=== PATIENT | male | born 1950 | race Caucasian/White ===

== ENCOUNTER 2020-09-12 10:14 | Outpatient (REF) | payer MEDICARE, OTHER, SELFPAY ==
[2020-09-12 13:47] LABS: MANUAL DIFF FLAG NO
[2020-09-12 13:58] LABS: Basophils Percent Auto 0.5 % (0-2); Eosinophils Absolute Auto 0.4 X10*3/uL (0.0-0.4); Eosinophils Percent Auto 4.7 % (0-4); Hematocrit 48.4 % (42-52); Hemoglobin 16.1 g/dl (14.0-18.0); Imm Gran Abs Auto 0.01 X10*3/uL (0.00-0.03); Imm Gran Pct Auto 0.1 % (0.0-0.4); Lymphocytes Percent Auto 26.2 % (20-40); Mean Corpuscular HGB Conc 33.3 g/dl (31.0-36.0); Mean Corpuscular Hemoglobin 29.7 pg (27.0-33.0); Mean Corpuscular Volume 89.1 fL (80-98); Monocytes Absolute Auto 0.6 X10*3/uL (0.1-1.2); Monocytes Percent Auto 8.2 % (2-11); Neutrophils Absolute Auto 4.5 X10*3/uL (2.0-8.3); Neutrophils Percent Auto 60.3 % (45-73); Platelet Count 152 X10*3/uL (160-400); Red Blood Count 5.43 X10*6/uL (4.60-5.80); Red Cell Distribution Width 13.4 % (11.0-16.0); White Blood Count 7.5 X10*3/uL (4.8-10.8)
[2020-09-12 14:00] LABS: Estimated Average Glucose 151 mg/dL; Hemoglobin A1c % 6.9 %
[2020-09-12 14:17] LABS: Alanine Aminotransferase 32 U/L (0-40); Albumin Level 4.3 g/dL (3.5-5.0); Alkaline Phosphatase 81 U/L (39-117); Anion Gap 13 (12-20); Aspartate Amino Transferase 28 U/L (5-37); Blood Urea Nitrogen 17 mg/dL (9-16); Calcium 9.4 mg/dL (8.4-10.2); Carbon Dioxide 27 mmol/L (22-29); Chloride 106 mmol/L (96-108); Cholesterol 110 mg/dL; Estimated Glomerular Filt Rate > 60; Glucose Fasting 129 mg/dL (60-99); HDL Cholesterol 34 mg/dL; LDL Cholesterol Calculated 59 mg/dl; Potassium 3.8 mmol/l (3.3-5.1); Sodium 142 mmol/L (135-145); Total Protein 6.9 g/dL (6.5-8.0); Triglycerides 89 mg/dL
== END 2020-09-12 10:15 | disposition home or self-care (01) ==
LOC: HO.10HDL 10:14
PROVIDERS: Visit Provider Internal Medicine Medical Oncology
DX: J44.9 Chronic obstructive pulmonary disease, unspecified (principal); E78.2 Mixed hyperlipidemia; I10 Essential (primary) hypertension
CPT/HCPCS: 36415; 80053; 80061; 83036; 85025

== ENCOUNTER → 2020-12-09 13:16 | Outpatient (BNVA) | payer MEDICARE, OTHER, SELFPAY | PROVIDERS: PCP Internal Medicine Medical Oncology; Visit Provider Internal Medicine Endocrinology, Diabetes & Metabolism | DX: E11.42 Type 2 diabetes mellitus with diabetic polyneuropathy (principal); Z79.4 Long term (current) use of insulin; E78.5 Hyperlipidemia, unspecified; I10 Essential (primary) hypertension; E66.9 Obesity, unspecified | CPT/HCPCS: 82947; 99212 ==

== ENCOUNTER → 2021-03-13 12:28 | Outpatient (BNVA) | payer MEDICARE, OTHER, SELFPAY | PROVIDERS: PCP Internal Medicine Medical Oncology; Visit Provider Internal Medicine Endocrinology, Diabetes & Metabolism | DX: E11.65 Type 2 diabetes mellitus with hyperglycemia (principal); E11.42 Type 2 diabetes mellitus with diabetic polyneuropathy; Z79.4 Long term (current) use of insulin; E78.5 Hyperlipidemia, unspecified; I10 Essential (primary) hypertension; E66.9 Obesity, unspecified | CPT/HCPCS: 82947; 99212 ==

== ENCOUNTER → 2021-03-18 10:48 | Outpatient (BNVA) | payer MEDICARE, OTHER, SELFPAY | PROVIDERS: PCP Internal Medicine Medical Oncology; Visit Provider Internal Medicine | DX: I25.10 Atherosclerotic heart disease of native coronary artery without angina pectoris (principal); I10 Essential (primary) hypertension; E11.8 Type 2 diabetes mellitus with unspecified complications; E78.5 Hyperlipidemia, unspecified | CPT/HCPCS: 93005; 99212 ==

== ENCOUNTER 2021-03-18 11:41 | Outpatient (REF) | payer MEDICARE, OTHER, SELFPAY ==
[2021-03-18 14:07] LABS: MANUAL DIFF FLAG NO
[2021-03-18 14:15] LABS: Basophils Percent Auto 0.5 % (0-2); Eosinophils Absolute Auto 0.4 X10*3/uL (0.0-0.4); Eosinophils Percent Auto 4.3 % (0-4); Hematocrit 50.2 % (42-52); Hemoglobin 16.7 g/dl (14.0-18.0); Imm Gran Abs Auto 0.03 X10*3/uL (0.00-0.03); Imm Gran Pct Auto 0.4 % (0.0-0.4); Lymphocytes Absolute Auto 2.1 X10*3/uL (1.2-4.9); Lymphocytes Percent Auto 26.4 % (20-40); Mean Corpuscular HGB Conc 33.3 g/dl (31.0-36.0); Mean Corpuscular Hemoglobin 29.9 pg (27.0-33.0); Monocytes Absolute Auto 0.6 X10*3/uL (0.1-1.2); Monocytes Percent Auto 6.8 % (2-11); Neutrophils Percent Auto 61.6 % (45-73); Platelet Count 203 X10*3/uL (160-400); Red Blood Count 5.58 X10*6/uL (4.60-5.80); Red Cell Distribution Width 13.6 % (11.0-16.0); White Blood Count 8.1 X10*3/uL (4.8-10.8)
[2021-03-18 14:41] LABS: Alanine Aminotransferase 29 U/L (0-40); Albumin Level 4.7 g/dL (3.5-5.0); Alkaline Phosphatase 92 U/L (39-117); Anion Gap 16 (12-20); Aspartate Amino Transferase 26 U/L (5-37); Bilirubin Total 1.1 mg/dL (0.0-1.0); Blood Urea Nitrogen 22 mg/dL (9-16); Calcium 10.1 mg/dL (8.4-10.2); Carbon Dioxide 26 mmol/L (22-29); Chloride 104 mmol/L (96-108); Cholesterol 125 mg/dL; Creatinine Urine 94.48 mg/dL; Estimated Glomerular Filt Rate > 60; Glucose Fasting 132 mg/dL (60-99); HDL Cholesterol 34 mg/dL; LDL Cholesterol Calculated 73 mg/dl; Microalbum/Creatinine Ratio Ur 7.4 ug/mg cr; Potassium 4.2 mmol/L (3.3-5.1); Sodium 142 mmol/L (135-145); Total Protein 7.5 g/dL (6.5-8.0); Triglycerides 90 mg/dL
[2021-03-18 15:12] LABS: Vitamin B12 644 pg/mL (200-900)
[2021-03-19 06:26] LABS: LDL Cholesterol Direct 66 mg/dL (<100)
== END 2021-03-18 11:42 | disposition home or self-care (01) ==
LOC: HO.10HDL 11:41
PROVIDERS: Absent Provider Internal Medicine Medical Oncology; Visit Provider Internal Medicine Endocrinology, Diabetes & Metabolism
DX: E11.65 Type 2 diabetes mellitus with hyperglycemia (principal); E78.2 Mixed hyperlipidemia; I10 Essential (primary) hypertension; E11.8 Type 2 diabetes mellitus with unspecified complications
CPT/HCPCS: 36415; 80053; 80061; 82043; 82607; 83721; 85025

== ENCOUNTER 2021-09-03 10:09 | Outpatient (REF) | payer MEDICARE, OTHER, SELFPAY ==
[2021-09-03 13:33] LABS: MANUAL DIFF FLAG NO
[2021-09-03 13:40] LABS: Basophils Percent Auto 0.6 % (0-2); Eosinophils Absolute Auto 0.5 X10*3/uL (0.0-0.4); Eosinophils Percent Auto 6.7 % (0-4); Hematocrit 47.6 % (42-52); Hemoglobin 16.1 g/dl (14.0-18.0); Imm Gran Abs Auto 0.02 X10*3/uL (0.00-0.03); Imm Gran Pct Auto 0.3 % (0.0-0.4); Lymphocytes Absolute Auto 2.2 X10*3/uL (1.2-4.9); Lymphocytes Percent Auto 30.2 % (20-40); Mean Corpuscular HGB Conc 33.8 g/dl (31.0-36.0); Mean Corpuscular Hemoglobin 30.3 pg (27.0-33.0); Mean Corpuscular Volume 89.5 fL (80-98); Mean Platelet Volume 10.1 fL (9.4-12.4); Monocytes Absolute Auto 0.5 X10*3/uL (0.1-1.2); Monocytes Percent Auto 7.5 % (2-11); Neutrophils Absolute Auto 3.9 X10*3/uL (2.0-8.3); Neutrophils Percent Auto 54.7 % (45-73); Platelet Count 147 X10*3/uL (160-400); Red Blood Count 5.32 X10*6/uL (4.60-5.80); Red Cell Distribution Width 13.2 % (11.0-16.0); White Blood Count 7.2 X10*3/uL (4.8-10.8)
[2021-09-03 13:56] LABS: Alanine Aminotransferase 32 U/L (0-40); Albumin Level 4.3 g/dL (3.5-5.0); Alkaline Phosphatase 85 U/L (39-117); Anion Gap 13 (12-20); Aspartate Amino Transferase 28 U/L (5-37); Bilirubin Total 1.4 mg/dL (0.0-1.0); Blood Urea Nitrogen 14 mg/dL (9-16); Calcium 9.6 mg/dL (8.4-10.2); Carbon Dioxide 27 mmol/L (22-29); Chloride 104 mmol/L (96-108); Cholesterol 108 mg/dL; Estimated Glomerular Filt Rate > 60; Glucose Fasting 127 mg/dL (60-99); HDL Cholesterol 31 mg/dL; LDL Cholesterol Calculated 59 mg/dl; Potassium 3.8 mmol/L (3.3-5.1); Sodium 140 mmol/L (135-145); Total Protein 6.9 g/dL (6.5-8.0); Triglycerides 92 mg/dL
[2021-09-03 14:19] LABS: Prostate Specific Antigen 2.38 ng/mL (<0.05-4.0)
[2021-09-03 14:24] LABS: Creatinine Urine 102.42 mg/dL; Microalbum/Creatinine Ratio Ur 7.8 ug/mg cr
== END 2021-09-03 10:10 | disposition home or self-care (01) ==
LOC: HO.10HDL 10:09
PROVIDERS: Visit Provider Internal Medicine Medical Oncology
DX: Z12.5 Encounter for screening for malignant neoplasm of prostate (principal); N40.0 Benign prostatic hyperplasia without lower urinary tract symptoms; E78.2 Mixed hyperlipidemia; E66.3 Overweight
CPT/HCPCS: 36415; 80053; 80061; 82043; 84153; 85025

== ENCOUNTER → 2021-09-24 09:47 | Outpatient (BNVA) | payer MEDICARE, OTHER, SELFPAY | PROVIDERS: PCP Internal Medicine Medical Oncology; Visit Provider Nurse Practitioner Gerontology | DX: Z13.89 Encounter for screening for other disorder (principal) | CPT/HCPCS: 82947; 83036; 99212 ==

== ENCOUNTER 2021-09-24 11:00 | Outpatient (REF) | payer MEDICARE, OTHER, SELFPAY ==
[2021-09-24 14:33] LABS: Thyroid Stimulating Hormone 3.72 uIU/mL (0.32-4.0)
[2021-09-25 10:47] LABS: Thyroid Peroxidase Antibodies 1 IU/mL (<9)
== END 2021-09-24 11:01 | disposition home or self-care (01) ==
LOC: HO.10HDL 11:00
PROVIDERS: Visit Provider Nurse Practitioner Gerontology
DX: E11.65 Type 2 diabetes mellitus with hyperglycemia (principal); E11.42 Type 2 diabetes mellitus with diabetic polyneuropathy; Z79.4 Long term (current) use of insulin; E04.9 Nontoxic goiter, unspecified; I10 Essential (primary) hypertension; E78.5 Hyperlipidemia, unspecified
CPT/HCPCS: 36415; 82947; 83036; 84439; 84443; 86376; 99212

== ENCOUNTER 2021-11-11 16:03 | Outpatient (REF) | payer MEDICARE, OTHER, SELFPAY ==
--- NOTE | ~2021-11-11 | US_ITS ---
EXAMINATION: US THYROID CLINICAL INFORMATION: Nontoxic goiter, unspecified. COMPARISON: None TECHNIQUE: Linear transducer grayscale and color Doppler examination with attention to the region of the thyroid. FINDINGS: SIZE: Measurements of the thyroid lobes and nodules are given in sagittal, anteroposterior and transverse dimensions respectively. Right Thyroid Lobe: 4.3 x 1.2 x 1.9 cm, volume 5.1 mL. Parenchyma: The gland echotexture is homogeneous. Thyroid vascularity is normal. Left Thyroid Lobe: 4.7 x 1.2 x 1.4 cm, volume 4.2 mL. Parenchyma: The gland echotexture is homogeneous. Thyroid vascularity is normal. Isthmus: 0.2 cm in maximum AP dimension. No focal thyroid nodule is seen. NODES: No lymphadenopathy is seen in the tissue surrounding the thyroid gland. US/US thyroid IMPRESSION: Unremarkable thyroid gland. ACR TI-RADS RECOMMENDATION REFERENCE: Ultrasound-guided fine-needle aspiration, followup ultrasound, no further follow up. * TR1 (0 point) and TR 2 (2 points): No FNA or follow up * TR3 (3 points): FNA if more than or equal to 2.5 cm in maximum dimension, followup ultrasound in 1, 3 and 5 years if 1.5 to 2.4 cm in maximum dimension. * TR4 (4-6 points): FNA if more than or equal to 1.5 cm in maximum dimension, followup ultrasound in 1, 2, 3 and 5 years if 1 to 1.4 cm in maximum dimension. * TR5 (more than or equal to 7 points): FNA if more than or equal to 1 cm in maximum dimension, followup ultrasound every year for 5 years if 0.5 to 0.9 cm in maximum dimension. * TR3, TR4 or TR5 nodules that are below the size threshold for follow up receive no follow up.
== END 2021-11-11 16:04 | disposition home or self-care (01) ==
LOC: HO.US 16:03
PROVIDERS: PCP Internal Medicine Medical Oncology; Visit Provider Nurse Practitioner Gerontology
DX: E04.9 Nontoxic goiter, unspecified (principal)
CPT/HCPCS: 76536

== ENCOUNTER 2021-12-09 09:41 | Outpatient (REF) | payer MEDICARE, OTHER, SELFPAY ==
[2021-12-09 10:08] LABS: MANUAL DIFF FLAG NO
[2021-12-09 10:13] LABS: Basophils Percent Auto 0.5 % (0-2); Eosinophils Absolute Auto 0.3 X10*3/uL (0.0-0.4); Eosinophils Percent Auto 3.3 % (0-4); Hematocrit 49.3 % (42.0-52.0); Hemoglobin 16.4 g/dl (14.0-18.0); Imm Gran Abs Auto 0.03 X10*3/uL (0.00-0.03); Imm Gran Pct Auto 0.4 % (0.0-0.4); Mean Corpuscular HGB Conc 33.3 g/dl (31.0-36.0); Mean Corpuscular Hemoglobin 30.3 pg (27.0-33.0); Mean Corpuscular Volume 91.1 fL (80.0-98.0); Monocytes Absolute Auto 0.6 X10*3/uL (0.1-1.2); Monocytes Percent Auto 7.4 % (2-11); Neutrophils Percent Auto 63.4 % (45-73); Platelet Count 180 X10*3/uL (160-400); Red Blood Count 5.41 X10*6/uL (4.60-5.80); Red Cell Distribution Width 13.3 % (11.0-16.0); White Blood Count 7.9 X10*3/uL (4.8-10.8)
[2021-12-09 10:38] LABS: Alanine Aminotransferase 33 U/L (0-40); Albumin Level 4.3 g/dL (3.5-5.0); Alkaline Phosphatase 73 U/L (39-117); Anion Gap 12 (12-20); Aspartate Amino Transferase 24 U/L (5-37); Bilirubin Total 1.2 mg/dL (0.0-1.0); Blood Urea Nitrogen 17 mg/dL (9-16); Carbon Dioxide 28 mmol/L (22-29); Chloride 106 mmol/L (96-108); Cholesterol 112 mg/dL; Estimated Glomerular Filt Rate > 60; Glucose Fasting 138 mg/dL (60-99); HDL Cholesterol 31 mg/dL; LDL Cholesterol Calculated 58 mg/dl; Potassium 4.5 mmol/L (3.3-5.1); Sodium 141 mmol/L (135-145); Triglycerides 117 mg/dL
[2021-12-09 14:12] LABS: Creatinine Urine 105.58 mg/dL; Microalbum/Creatinine Ratio Ur 8.5 ug/mg cr
== END 2021-12-09 09:42 | disposition home or self-care (01) ==
LOC: HO.10HDL 09:41
PROVIDERS: Visit Provider Internal Medicine Medical Oncology
DX: N40.0 Benign prostatic hyperplasia without lower urinary tract symptoms (principal); E78.2 Mixed hyperlipidemia
CPT/HCPCS: 36415; 80053; 80061; 82043; 85025

== ENCOUNTER 2022-02-19 10:32 | Outpatient (REF) | payer MEDICARE, OTHER, SELFPAY ==
[2022-02-19 11:16] LABS: MANUAL DIFF FLAG NO
[2022-02-19 12:13] LABS: Basophils Percent Auto 0.5 % (0-2); Eosinophils Absolute Auto 0.4 X10*3/uL (0.0-0.4); Eosinophils Percent Auto 5.4 % (0-4); Hematocrit 47.8 % (42.0-52.0); Hemoglobin 16.6 g/dl (14.0-18.0); Imm Gran Abs Auto 0.02 X10*3/uL (0.00-0.03); Imm Gran Pct Auto 0.3 % (0.0-0.4); Lymphocytes Absolute Auto 1.8 X10*3/uL (1.2-4.9); Lymphocytes Percent Auto 24.8 % (20-40); Mean Corpuscular HGB Conc 34.7 g/dl (31.0-36.0); Mean Corpuscular Hemoglobin 31.9 pg (27.0-33.0); Mean Corpuscular Volume 91.7 fL (80.0-98.0); Mean Platelet Volume 9.9 fL (9.4-12.4); Monocytes Absolute Auto 0.5 X10*3/uL (0.1-1.2); Monocytes Percent Auto 7.1 % (2-11); Neutrophils Absolute Auto 4.6 x10*3/uL (2.0-8.3); Neutrophils Percent Auto 61.9 % (45-73); Platelet Count 142 X10*3/uL (160-400); Red Blood Count 5.21 X10*6/uL (4.60-5.80); Red Cell Distribution Width 14.2 % (11.0-16.0); White Blood Count 7.4 X10*3/uL (4.8-10.8)
[2022-02-19 12:21] LABS: Estimated Average Glucose 148 mg/dL; Hemoglobin A1c % 6.8 %
[2022-02-19 12:44] LABS: Alanine Aminotransferase 38 U/L (0-40); Albumin Level 4.5 g/dL (3.5-5.0); Alkaline Phosphatase 78 U/L (39-117); Anion Gap 12 (12-20); Aspartate Amino Transferase 27 U/L (5-37); Bilirubin Total 1.3 mg/dL (0.0-1.0); Blood Urea Nitrogen 16 mg/dL (9-16); Carbon Dioxide 29 mmol/L (22-29); Chloride 105 mmol/L (96-108); Cholesterol 112 mg/dL; Estimated Glomerular Filt Rate > 60; Glucose Fasting 131 mg/dL (60-99); HDL Cholesterol 34 mg/dL; LDL Cholesterol Calculated 62 mg/dl; Potassium 4.2 mmol/L (3.3-5.1); Sodium 142 mmol/L (135-145); Total Protein 7.1 g/dL (6.5-8.0); Triglycerides 82 mg/dL
[2022-02-19 12:59] LABS: Creatinine Urine 105.68 mg/dL; Microalbum/Creatinine Ratio Ur 10.4 ug/mg cr
== END 2022-02-19 10:33 | disposition home or self-care (01) ==
LOC: HO.LAB 10:32
PROVIDERS: PCP Internal Medicine Medical Oncology; Visit Provider Internal Medicine Medical Oncology
DX: E11.10 Type 2 diabetes mellitus with ketoacidosis without coma (principal); E78.2 Mixed hyperlipidemia; E66.3 Overweight
CPT/HCPCS: 36415; 80053; 80061; 82043; 83036; 85025

== ENCOUNTER → 2022-03-25 13:51 | Outpatient (BNVA) | payer MEDICARE, OTHER, SELFPAY | PROVIDERS: PCP Internal Medicine Medical Oncology; Referring Provider Internal Medicine Medical Oncology; Visit Provider Internal Medicine | DX: I25.10 Atherosclerotic heart disease of native coronary artery without angina pectoris (principal); I10 Essential (primary) hypertension; E78.5 Hyperlipidemia, unspecified; E11.8 Type 2 diabetes mellitus with unspecified complications | CPT/HCPCS: 93005; 99212 ==

== ENCOUNTER → 2022-04-10 10:38 | Outpatient (BNVA) | payer MEDICARE, OTHER, SELFPAY | PROVIDERS: PCP Internal Medicine Medical Oncology; Visit Provider Nurse Practitioner Gerontology | DX: E11.42 Type 2 diabetes mellitus with diabetic polyneuropathy (principal); E78.5 Hyperlipidemia, unspecified; I10 Essential (primary) hypertension; Z79.4 Long term (current) use of insulin | CPT/HCPCS: 82947; 99212 ==

== ENCOUNTER 2022-06-17 09:34 | Outpatient (REF) | payer MEDICARE, OTHER, SELFPAY ==
[2022-06-17 10:22] LABS: MANUAL DIFF FLAG NO
[2022-06-17 10:30] LABS: Basophils Percent Auto 0.5 % (0-2); Eosinophils Absolute Auto 0.4 X10*3/uL (0.0-0.4); Eosinophils Percent Auto 5.4 % (0-4); Hematocrit 47.1 % (42.0-52.0); Imm Gran Abs Auto 0.02 X10*3/uL (0.00-0.03); Imm Gran Pct Auto 0.3 % (0.0-0.4); Lymphocytes Absolute Auto 1.8 X10*3/uL (1.2-4.9); Mean Corpuscular Hemoglobin 30.1 pg (27.0-33.0); Mean Corpuscular Volume 88.7 fL (80.0-98.0); Mean Platelet Volume 9.8 fL (9.4-12.4); Monocytes Absolute Auto 0.5 X10*3/uL (0.1-1.2); Monocytes Percent Auto 7.2 % (2-11); Neutrophils Absolute Auto 4.7 x10*3/uL (2.0-8.3); Neutrophils Percent Auto 62.6 % (45-73); Platelet Count 145 X10*3/uL (160-400); Red Blood Count 5.31 X10*6/uL (4.60-5.80); Red Cell Distribution Width 13.4 % (11.0-16.0); White Blood Count 7.5 X10*3/uL (4.8-10.8)
[2022-06-17 10:59] LABS: Estimated Average Glucose 151 mg/dL; Hemoglobin A1c % 6.9 %
[2022-06-17 11:18] LABS: Alanine Aminotransferase 30 U/L (0-40); Albumin Level 4.5 g/dL (3.5-5.0); Alkaline Phosphatase 77 U/L (39-117); Anion Gap 12 (12-20); Aspartate Amino Transferase 28 U/L (5-37); Bilirubin Total 1.3 mg/dL (0.0-1.0); Blood Urea Nitrogen 17 mg/dL (9-16); Calcium 9.5 mg/dL (8.4-10.2); Carbon Dioxide 28 mmol/L (22-29); Chloride 104 mmol/L (96-108); Cholesterol 126 mg/dL; Estimated Glomerular Filt Rate > 60; Glucose Fasting 131 mg/dL (60-99); HDL Cholesterol 32 mg/dL; LDL Cholesterol Calculated 70 mg/dl; Potassium 3.7 mmol/L (3.3-5.1); Sodium 140 mmol/L (135-145); Total Protein 7.1 g/dL (6.5-8.0); Triglycerides 122 mg/dL
[2022-06-17 11:27] LABS: Prostate Specific Antigen 2.66 ng/mL (<0.05-4.0)
[2022-06-17 14:30] LABS: Creatinine Urine 125.53 mg/dL; Microalbum/Creatinine Ratio Ur 7.1 ug/mg cr
== END 2022-06-17 09:35 | disposition home or self-care (01) ==
LOC: HO.10HDL 09:34
PROVIDERS: Visit Provider Internal Medicine Medical Oncology
DX: Z12.5 Encounter for screening for malignant neoplasm of prostate (principal); E11.10 Type 2 diabetes mellitus with ketoacidosis without coma; N40.0 Benign prostatic hyperplasia without lower urinary tract symptoms; E78.2 Mixed hyperlipidemia
CPT/HCPCS: 36415; 80053; 80061; 82043; 83036; 84153; 85025

== ENCOUNTER 2022-10-23 09:50 | Outpatient (REF) | payer MEDICARE, OTHER, SELFPAY ==
[2022-10-23 10:33] LABS: MANUAL DIFF FLAG NO
[2022-10-23 10:36] LABS: Basophils Percent Auto 0.4 % (0-2); Eosinophils Absolute Auto 0.4 X10*3/uL (0.0-0.4); Eosinophils Percent Auto 5.2 % (0-4); Hematocrit 50.1 % (42.0-52.0); Hemoglobin 16.6 g/dl (14.0-18.0); Imm Gran Abs Auto 0.02 X10*3/uL (0.00-0.03); Imm Gran Pct Auto 0.3 % (0.0-0.4); Lymphocytes Absolute Auto 2.1 X10*3/uL (1.2-4.9); Lymphocytes Percent Auto 29.6 % (20-40); Mean Corpuscular HGB Conc 33.1 g/dl (31.0-36.0); Mean Corpuscular Hemoglobin 29.7 pg (27.0-33.0); Mean Corpuscular Volume 89.8 fL (80.0-98.0); Mean Platelet Volume 9.9 fL (9.4-12.4); Monocytes Absolute Auto 0.6 X10*3/uL (0.1-1.2); Monocytes Percent Auto 8.7 % (2-11); Neutrophils Percent Auto 55.8 % (45-73); Platelet Count 167 X10*3/uL (160-400); Red Blood Count 5.58 X10*6/uL (4.60-5.80); Red Cell Distribution Width 13.3 % (11.0-16.0); White Blood Count 7.1 X10*3/uL (4.8-10.8)
[2022-10-23 10:52] LABS: Estimated Average Glucose 160 mg/dL; Hemoglobin A1c % 7.2 %
[2022-10-23 14:24] LABS: Alanine Aminotransferase 30 U/L (0-40); Albumin Level 4.4 g/dL (3.5-5.0); Alkaline Phosphatase 75 U/L (39-117); Anion Gap 12 (12-20); Aspartate Amino Transferase 27 U/L (5-37); Bilirubin Total 1.1 mg/dL (0.0-1.0); Blood Urea Nitrogen 16 mg/dL (9-16); Calcium 9.8 mg/dL (8.4-10.2); Carbon Dioxide 29 mmol/L (22-29); Chloride 100 mmol/L (96-108); Cholesterol 116 mg/dL; Estimated Glomerular Filt Rate > 60; Glucose Fasting 148 mg/dL (60-99); HDL Cholesterol 33 mg/dL; LDL Cholesterol Calculated 58 mg/dl; Potassium 4.5 mmol/L (3.3-5.1); Sodium 136 mmol/L (135-145); Triglycerides 128 mg/dL
== END 2022-10-23 09:51 | disposition home or self-care (01) ==
LOC: HO.10HDL 09:50
PROVIDERS: Internal Medicine; Visit Provider Internal Medicine Medical Oncology
DX: E11.10 Type 2 diabetes mellitus with ketoacidosis without coma (principal); E78.2 Mixed hyperlipidemia; I25.10 Atherosclerotic heart disease of native coronary artery without angina pectoris; I10 Essential (primary) hypertension
CPT/HCPCS: 36415; 80053; 80061; 83036; 85025

== ENCOUNTER 2023-03-29 10:04 | Outpatient (REF) | payer MEDICARE, OTHER, SELFPAY ==
[2023-03-29 10:33] LABS: MANUAL DIFF FLAG NO
[2023-03-29 10:37] LABS: Basophils Absolute Auto 0.1 X10*3/uL (0.0-0.2); Basophils Percent Auto 0.7 % (0-2); Eosinophils Absolute Auto 0.5 X10*3/uL (0.0-0.4); Eosinophils Percent Auto 6.1 % (0-4); Hematocrit 51.1 % (42.0-52.0); Hemoglobin 17.1 g/dl (14.0-18.0); Imm Gran Abs Auto 0.03 X10*3/uL (0.00-0.03); Imm Gran Pct Auto 0.4 % (0.0-0.4); Lymphocytes Absolute Auto 2.1 X10*3/uL (1.2-4.9); Lymphocytes Percent Auto 25.7 % (20-40); Mean Corpuscular HGB Conc 33.5 g/dl (31.0-36.0); Mean Corpuscular Hemoglobin 29.6 pg (27.0-33.0); Mean Corpuscular Volume 88.6 fL (80.0-98.0); Mean Platelet Volume 9.6 fL (9.4-12.4); Monocytes Absolute Auto 0.7 X10*3/uL (0.1-1.2); Monocytes Percent Auto 8.2 % (2-11); Neutrophils Absolute Auto 4.7 x10*3/uL (2.0-8.3); Neutrophils Percent Auto 58.9 % (45-73); Platelet Count 173 X10*3/uL (160-400); Red Blood Count 5.77 X10*6/uL (4.60-5.80); Red Cell Distribution Width 13.3 % (11.0-16.0); White Blood Count 8.1 X10*3/uL (4.8-10.8)
[2023-03-29 10:55] LABS: Estimated Average Glucose 166 mg/dL; Hemoglobin A1c % 7.4 %
[2023-03-29 11:18] LABS: Alanine Aminotransferase 39 U/L (0-40); Albumin Level 4.5 g/dL (3.5-5.0); Alkaline Phosphatase 86 U/L (39-117); Anion Gap 12 (12-20); Aspartate Amino Transferase 31 U/L (5-37); Bilirubin Total 2.2 mg/dL (0.0-1.0); Blood Urea Nitrogen 23 mg/dL (9-16); Calcium 9.9 mg/dL (8.4-10.2); Carbon Dioxide 28 mmol/L (22-29); Chloride 103 mmol/L (96-108); Cholesterol 128 mg/dL; Estimated Glomerular Filt Rate > 60; Glucose Fasting 145 mg/dL (60-99); HDL Cholesterol 33 mg/dL; LDL Cholesterol Calculated 75 mg/dl; Potassium 4.6 mmol/L (3.3-5.1); Sodium 138 mmol/L (135-145); Total Protein 6.9 g/dL (6.5-8.0); Triglycerides 102 mg/dL
[2023-03-29 11:37] LABS: Prostate Specific Antigen 2.85 ng/mL (<0.05-4.0)
[2023-03-29 14:56] LABS: Creatinine Urine 100.94 mg/dL; Microalbum/Creatinine Ratio Ur 9.9 ug/mg cr
== END 2023-03-29 10:05 | disposition home or self-care (01) ==
LOC: HO.10HDL 10:04
PROVIDERS: Visit Provider Internal Medicine Medical Oncology
DX: E11.10 Type 2 diabetes mellitus with ketoacidosis without coma (principal); N40.0 Benign prostatic hyperplasia without lower urinary tract symptoms; E78.2 Mixed hyperlipidemia; E66.3 Overweight; Z12.5 Encounter for screening for malignant neoplasm of prostate
CPT/HCPCS: 36415; 80053; 80061; 82043; 83036; 84153; 85025

== ENCOUNTER → 2023-04-26 07:49 | Outpatient (REF) | payer MEDICARE, OTHER, SELFPAY ==
--- NOTE | ~2023-04-26 | NM_ITS ---
Exercise Myocardial perfusion study Indication: Atherosclerotic cardiovascular disease to evaluate for ischemia Technique: The patient was brought in for an exercise perfusion study on 04/26/2023. Patient performed exercise as per Raphael protocol and was injected 30 mCi of sestamibi was given intravenously one target HR was achieved. Images were obtained using the SPECT gamma camera interlaced with the gating device. Images were obtained in supine position. Resting perfusion study was performed on 04/27/2023. Patient was administered 30 mCi of sestamibi intravenously at rest. Images were then obtained in supine position. Images obtained with and without CT attenuation. Total DLP 112 mGy-cm. Images were processed with the software and compared side to side in short axis, horizontal long axis and vertical long axis views. Findings: The stress perfusion study showed non attenuated images show mildly reduced uptake in the basal and mid inferior wall of the LV myocardium with remainder of the LV myocardium normal uptake. Attenuation corrected images show normal uptake of radiotracer in all segments of LV myocardium. The gated study shows normal LV systolic function with calculated LVEF of 67%. LV cavity is normal in size. The gated study shows oval systolic wall thickening and contraction of all segments. There is no transient ischemic dilation. Resting study shows no change in perfusion pattern compared to stress perfusion study. Gating at rest reveals normal systolic wall motion with ejection fraction at 53%. The findings are consistent with normal myocardial perfusion . NM/NM cardiolite stress test Impression: 1. Normal myocardial perfusion 2. Gated LVEF is 67% 3. Transient ischemic dilatation not present EKG is nondiagnostic for ischemia Stress EKG is negative for ischemia
--- NOTE | 2023-04-26 07:53 | CA_ITS ---
Acquisition Time: 2023-04-26 09:02:39 Total Exercise Time: 00:06:00 Test Indications: I25.10 Medications: SEE H Protocol: DANNY Max HR: 125 BPM 84% of Pred: 148 BPM Max BP: 166/082 mmHG Max Work Load: 7.0 METS Exercise stress test with exercise 6 min of Danny protocol, achieving 83% MPHR, with moderate sob, no chest discomfort, with isolated PACs and frequent isolated PVCs during exercise, with normotensive response to exercise, without EKG changes meeting criteria for ischemia. Nuclear images pending. Test reviewed with Dr Medina. Referred By: Wilner Otero Overread By: ALEX CRESPO
--- NOTE | 2023-04-26 07:53 | CA_ITS ---
Transthoracic Echocardiogram Patient (Last, First, Middle): Jose Armando Foster, Gender: Male Date of : 1950 Age: 72 Procedure Date: 04/26/2023 Procedure Type: Transthoracic Echocardiogram Location: OP Height: 182.88 cm Weight: 95.26 kg BSA: 2.18 m2 Heart Rate: bpm BP: 128 / 80 mmHg Jar Capper: GUILLERMO Referring MD: Wilner Otero MD Symptoms: I25.10 - Atherosclerotic heart disease of [place] coronary artery without... Study Quality: Fair ECG Rhythm: Sinus Conclusions: - The left ventricular systolic function is normal. The calculated ejection fraction is 56% by biplane method. - No obvious valvular pathology seen on this study. Findings Left Ventricle Normal left ventricular cavity size. There is mildly increased left ventricular wall thickness. The left ventricular systolic function is normal. The calculated ejection fraction is 56% by biplane method. There is no evidence of regional wall motion abnormalities. Diastolic function is normal for age. LV peak GLS -14.5%. Right Ventricle Normal right ventricular cavity size. There is low normal right ventricular systolic function. Atria Both atria are normal in size. Aortic Valve There is a normal trileaflet aortic valve. There is mild calcification of the aortic valve. There is no aortic valve stenosis. There is no aortic valve regurgitation. Mitral Valve The mitral valve appears normal. There is no mitral valve regurgitation. There is no mitral valve stenosis. Pulmonic Valve The pulmonic valve is likely normal. Tricuspid Valve Normal tricuspid valve structure. There is trace tricuspid valve regurgitation. Tricuspid regurgitation envelope is inadequate for calculation of right ventricular systolic pressure. Great Vessels The asc aorta is normal in size. Venous The inferior vena cava is normal in size and collapses greater than 50% with inspiration. Pericardium/Pleural There is no evidence of pericardial effusion. Recommendations, Care & Conclusions No obvious valvular pathology seen on this study. Measurements 2D Linear Measurements IVSd: 1.22 0.6-0.9/0.6-1.0 cm LVIDd: 5.19 3.9-5.3/4.2-5.9 cm LVIDd Index: 2.38 2.4-3.2/2.2-3.1 cm/m2 LVIDs: 3.70 2.0-3.6 cm LVPWd: 1.12 0.7-1.1 cm LA Diam: 3.60 2.7-3.8/3.0-4.0 cm LAIDs Index: 1.65 1.5-2.3 cm/m2 LV Mass: 298.65 67-162/88-224 g LV Mass Index: 136.99 43-95/49-115 g/m2 LVOT Diam: 2.20 3.0+(-)1.3 cm 2D Systolic Function EF 4C: 58.00 >55% EF 2C: 54.10 >55% EF BiP: 56.20 >55% Mitral Valve MV Pk E: 0.45 MV PK A: 0.69 MV Decel Time: 320.00 E/A: 0.70 E'Lateral: 5.77 E'Medial: 4.57 E/E' Med: 9.90 E/E' Lat: 7.90 PHT: 94.00 MVA PHT: 2.34 Decel [place]: 1.42 Aortic Valve AoV Pk Dino: 1.01 AoV Mn Dino: 0.76 AoV VTI: 0.22 AoV Pk Grad: 4.00 Aov Mn Grad: 3.00 GLENDY Cont.VTI: 2.96 LVOT LVOT Pk Dino: 0.73 LVOT Mn Dino: 0.47 LVOT VTI: 0.17 LVOT Pk Grad: 2.00 LVOT Mn Grad: 1.00 LVOT Diam: 2.20 LVOT Area: 3.80 Diastolic Function MV Pk E: 0.45 MV Pk A: 0.69 E/A: 0.70 E'Medial: 4.57 E/E' Med: 9.90 E' Laterial: 5.77 E/E' Lat: 7.90 Right Ventricle TAPSE (mm): 18.90 TVS' Dino: 9.90 Tricuspid Valve RA Press: 3.00 Great Vessels Aorta Sinus of Valsalva: 3.83 2.0-3.[address] [place]: 3.29 1.7-3.4 cm Ao Asc: 3.60 2.1-3.4 cm Updated in Other Vendor System with Status of Final Wilner Otero MD electronically signed on 04/26/2023 10:03:02 AM with status of Final
== END ==
LOC: HO.CARD 07:49
PROVIDERS: PCP Internal Medicine Medical Oncology; Visit Provider Internal Medicine
DX: I25.10 Atherosclerotic heart disease of native coronary artery without angina pectoris (principal)
CPT/HCPCS: 78452; 93017; 93306; A9500

== ENCOUNTER 2023-08-31 10:34 | Outpatient (REF) | payer MEDICARE, OTHER, SELFPAY | END 2023-08-31 10:35 | disposition home or self-care (01) | LOC: HO.10HDL 10:34 | PROVIDERS: Visit Provider Internal Medicine Medical Oncology | DX: Z00.00 Encounter for general adult medical examination without abnormal findings (principal); E11.8 Type 2 diabetes mellitus with unspecified complications; E78.2 Mixed hyperlipidemia; E66.3 Overweight; I10 Essential (primary) hypertension | CPT/HCPCS: 36415; 80053; 80061; 83036; 85025 ==

== ENCOUNTER 2024-03-28 10:26 | Outpatient (REF) | payer MEDICARE, OTHER, SELFPAY ==
[2024-03-28 13:27] LABS: MANUAL DIFF FLAG NO
[2024-03-28 13:34] LABS: Basophils Percent Auto 0.5 % (0-2); Eosinophils Absolute Auto 0.5 X10*3/uL (0.0-0.4); Eosinophils Percent Auto 6.8 % (0-4); Hematocrit 49.5 % (42.0-52.0); Imm Gran Abs Auto 0.02 X10*3/uL (0.00-0.03); Imm Gran Pct Auto 0.3 % (0.0-0.4); Lymphocytes Absolute Auto 1.9 X10*3/uL (1.2-4.9); Lymphocytes Percent Auto 24.4 % (20-40); Mean Corpuscular HGB Conc 34.3 g/dl (31.0-36.0); Mean Corpuscular Hemoglobin 30.6 pg (27.0-33.0); Mean Platelet Volume 9.8 fL (9.4-12.4); Monocytes Absolute Auto 0.6 X10*3/uL (0.1-1.2); Monocytes Percent Auto 7.3 % (2-11); Neutrophils Absolute Auto 4.8 x10*3/uL (2.0-8.3); Neutrophils Percent Auto 60.7 % (45-73); Platelet Count 152 X10*3/uL (160-400); Red Blood Count 5.56 X10*6/uL (4.60-5.80); Red Cell Distribution Width 13.3 % (11.0-16.0); White Blood Count 7.9 X10*3/uL (4.8-10.8)
[2024-03-28 13:44] LABS: Estimated Average Glucose 169 mg/dL; Hemoglobin A1c % 7.5 % (<6.0)
[2024-03-28 14:07] LABS: Alanine Aminotransferase 37 U/L (0-40); Albumin Level 4.4 g/dL (3.5-5.0); Alkaline Phosphatase 81 U/L (39-117); Anion Gap 14 (12-20); Aspartate Amino Transferase 28 U/L (5-37); Bilirubin Total 1.6 mg/dL (0.0-1.0); Blood Urea Nitrogen 18 mg/dL (9-16); Carbon Dioxide 27 mmol/L (22-29); Chloride 102 mmol/L (96-108); Cholesterol 123 mg/dL (<200); Estimated Glomerular Filt Rate > 60; Glucose Fasting 145 mg/dL (60-99); HDL Cholesterol 35 mg/dL (>40); LDL Cholesterol Calculated 63 mg/dL (<100); Potassium 3.5 mmol/L (3.3-5.1); Sodium 139 mmol/L (135-145); Total Protein 7.2 g/dL (6.5-8.0); Triglycerides 126 mg/dL (<150)
[2024-03-28 14:17] LABS: Prostate Specific Antigen 2.63 ng/mL (<0.05-4.0)
[2024-03-28 14:20] LABS: Creatinine Urine 92.69 mg/dL; Microalbum/Creatinine Ratio Ur 18.3 ug/mg cr (<30)
== END 2024-03-28 10:27 | disposition home or self-care (01) ==
LOC: HO.10HDL 10:26
PROVIDERS: Visit Provider Internal Medicine Medical Oncology
DX: N40.0 Benign prostatic hyperplasia without lower urinary tract symptoms (principal); E78.2 Mixed hyperlipidemia; I10 Essential (primary) hypertension; E66.3 Overweight; E11.8 Type 2 diabetes mellitus with unspecified complications; Z12.5 Encounter for screening for malignant neoplasm of prostate
CPT/HCPCS: 36415; 80053; 80061; 82043; 82570; 83036; 84153; 85025

== ENCOUNTER 2024-05-02 13:52 | Outpatient (AMB) | payer MEDICARE, OTHER, SELFPAY ==
[2024-05-02 14:26] VITALS: BP 100/60; PULSE 70; BMI 28.9
--- NOTE | 2024-05-02 14:26 | MHC.OFFVIS ---
Vital Signs 05/02/24 14:26 Height 6 ft Weight 212 lb 15.465 oz BMI 28.9 BP 100/60 Blood Pressure Location Lt brachial Position Sitting Pulse 70 Intake Visit Reasons: 1 year follow up Electrophysiology Tech Required: No Accompanied by: Self / Same As Patient Allergies metformin Allergy (Unknown, Verified 04/10/22 11:21) rash Medication List - Last Reconciled 05/02/24 by Wilner Otero MD aspirin (Adult Low Dose Aspirin) 81 mg PO DAILY atorvastatin 80 mg PO DAILY blood sugar diagnostic (FreeStyle Lite Strips) 1 strip miscellaneous TID 90 days dulaglutide (Trulicity) 3 mg (0.5 mL) subcut QWEEK 90 days empagliflozin (Jardiance) 25 mg PO DAILY 90 days fluticasone propion-salmeterol 45-21 mcg/actuation (Advair HFA) inhalation hydrochlorothiazide 25 mg PO DAILY insulin glargine 36 units (0.36 mL) subcut DAILY 90 days lisinopril 40 mg PO DAILY metoprolol succinate ER 25 mg PO BID pen needle, diabetic Once a day HPI Comments Details: Jose Armando returns for follow-up regarding coronary disease. In 2007, he was admitted to [facility] with NSTEMI. This was treated conservatively and a stress test was apparently unremarkable at that time. Cardiac catheterization was not performed per his preference. Overall, he feels good. No cardiac symptoms whatsoever. [facility] Medical History Atherosclerotic cardiovascular disease Diabetes type 2, uncontrolled Diabetic polyneuropathy associated with type 2 diabetes mellitus Dyslipidemia Hypertension assisted (current) use of insulin Obesity (BMI 30-39.9) Surgical History Hx of colonoscopy Hx of vasectomy Family History Father No problems noted. Mother Diabetes Social History Household Members: Spouse and Family Alcohol intake: current Alcohol intake frequency: holidays/special occasions only Patient Tobacco Use Status: Former Tobacco user Review of Systems Const Denies chills, Denies fatigue, Denies fever(s), Denies frequent falls, Denies weakness, Denies weight gain and Denies weight loss ENT Denies dizziness Card Denies chest pain, Denies leg edema, Denies lightheadedness, Denies palpitations, Denies dyspnea and Denies dyspnea on exertion Resp Denies cough, Denies dyspnea and Denies dyspnea on exertion GI Denies hematochezia Musc Denies abnormal gait, Denies muscle weakness, Denies numbness, Denies radiating pain into limb and Denies tingling Neuro Denies abnormal gait, Denies dizziness, Denies frequent falls, Denies numbness, Denies tingling and Denies weakness Endo Denies fatigue and Denies palpitations Physical Exam Vital Signs: Last Vital Signs Pulse 70 05/02/24 14:26 BP 100/60 05/02/24 14:26 BMI result Body Mass Index 28.9 Const General: comfortable and no acute distress Orientation/consciousness: patient oriented x3 HEENT Other: Unremarkable Head: Yes normal to inspection Neck Neck: Yes normal visual inspection Chest Chest palpation & inspection: normal inspection of the chest Resp Auscultation: clear to auscultation bilaterally Cardio Palpation: normal PMI Heart sounds: S1 normal heart sound present, S2 normal heart sound present, no gallops, no murmurs and no rubs GI Palpation (GI): Soft to palpation Back/Spine/Pelvis Other: unremarkable Skin General skin exam: no rashes or lesions noted Neuro General: patient oriented x3 Extrem General: Yes normal to inspection Psych Mental Status: mental status grossly normal Office Procedures EKG Details: EKG with sinus rhythm at 70/Min; can not exclude old inferior infarct; [place] [id number], Complete Assessment & Plan Assessment & Plan (1) Atherosclerotic cardiovascular disease: Code(s): I25.10 - Atherosclerotic heart disease of [place] coronary artery without angina pectoris Category: Medical Plan: No specific concerns. Exercise stress test was negative at 7 METS exercise capacity with negative perfusion. Unremarkable echocardiogram apart from diminished strain. (2) Essential hypertension: Code(s): I10 - Essential (primary) hypertension Category: Medical Plan: Stable. Remains on lisinopril/metoprolol/HCTZ. (3) Type 2 diabetes mellitus with unspecified complications: Code(s): E11.8 - Type 2 diabetes mellitus with unspecified complications Category: Medical Plan: He is on Trulicity, Jardiance, Insulin. Last hemoglobin A1c 7.5 %. (4) Other and unspecified hyperlipidemia: Code(s): E78.5 - Hyperlipidemia, unspecified Category: Medical Plan: On statins. LDL cholesterol is 63 mg/dL. Coding Level of Care Code Est Pt Level 4 (48240) Diagnoses Atherosclerotic cardiovascular disease I25.10 Essential hypertension I10 Type 2 diabetes mellitus with unspecified complications E11.8 Other and unspecified hyperlipidemia E78.5 CPT Codes EKG - CPT: 39671-[id number], Complete ([id number])
== END 2024-05-02 14:42 | disposition home or self-care (01) ==
PROVIDERS: PCP Internal Medicine Medical Oncology; Visit Provider Internal Medicine
DX: I25.10 Atherosclerotic heart disease of native coronary artery without angina pectoris (principal); I10 Essential (primary) hypertension; E11.8 Type 2 diabetes mellitus with unspecified complications; E78.5 Hyperlipidemia, unspecified
CPT/HCPCS: 93010; 99214

== ENCOUNTER → 2024-05-02 13:52 | Outpatient (BNVA) | payer MEDICARE, OTHER, SELFPAY | PROVIDERS: PCP Internal Medicine Medical Oncology; Visit Provider Internal Medicine | DX: I25.10 Atherosclerotic heart disease of native coronary artery without angina pectoris (principal); I10 Essential (primary) hypertension; E11.8 Type 2 diabetes mellitus with unspecified complications; E78.5 Hyperlipidemia, unspecified | CPT/HCPCS: 93005; 99212 ==

== ENCOUNTER 2024-07-10 09:20 | Outpatient (REF) | payer MEDICARE, OTHER, SELFPAY ==
[2024-07-10 10:36] LABS: MANUAL DIFF FLAG NO
[2024-07-10 10:45] LABS: Basophils Absolute Auto 0.1 X10*3/uL (0.0-0.2); Basophils Percent Auto 0.6 % (0-2); Eosinophils Absolute Auto 0.6 X10*3/uL (0.0-0.4); Eosinophils Percent Auto 7.5 % (0-4); Hematocrit 50.2 % (42.0-52.0); Imm Gran Abs Auto 0.03 X10*3/uL (0.00-0.03); Imm Gran Pct Auto 0.4 % (0.0-0.4); Lymphocytes Absolute Auto 2.4 X10*3/uL (1.2-4.9); Lymphocytes Percent Auto 29.8 % (20-40); Mean Corpuscular HGB Conc 33.9 g/dl (31.0-36.0); Mean Corpuscular Hemoglobin 30.3 pg (27.0-33.0); Mean Corpuscular Volume 89.5 fL (80.0-98.0); Mean Platelet Volume 9.8 fL (9.4-12.4); Monocytes Absolute Auto 0.7 X10*3/uL (0.1-1.2); Monocytes Percent Auto 9.1 % (2-11); Neutrophils Absolute Auto 4.2 x10*3/uL (2.0-8.3); Neutrophils Percent Auto 52.6 % (45-73); Platelet Count 142 X10*3/uL (160-400); Red Blood Count 5.61 X10*6/uL (4.60-5.80); Red Cell Distribution Width 13.3 % (11.0-16.0); White Blood Count 8.1 X10*3/uL (4.8-10.8)
[2024-07-10 11:10] LABS: Alanine Aminotransferase 38 U/L (0-40); Albumin Level 4.5 g/dL (3.5-5.0); Alkaline Phosphatase 81 U/L (39-117); Anion Gap 13 (12-20); Aspartate Amino Transferase 34 U/L (5-37); Bilirubin Total 1.8 mg/dL (0.0-1.0); Blood Urea Nitrogen 15 mg/dL (9-16); Calcium 10.1 mg/dL (8.4-10.2); Carbon Dioxide 28 mmol/L (22-29); Chloride 101 mmol/L (96-108); Cholesterol 116 mg/dL (<200); Estimated Glomerular Filt Rate > 60; Glucose Fasting 140 mg/dL (60-99); HDL Cholesterol 33 mg/dL (>40); LDL Cholesterol Calculated 54 mg/dL (<100); Potassium 4.1 mmol/L (3.3-5.1); Sodium 138 mmol/L (135-145); Total Protein 7.2 g/dL (6.5-8.0); Triglycerides 146 mg/dL (<150)
[2024-07-10 11:18] LABS: Estimated Average Glucose 177 mg/dL; Hemoglobin A1c % 7.8 % (<6.0)
[2024-07-10 11:29] LABS: Creatinine Urine 80.31 mg/dL; Microalbum/Creatinine Ratio Ur 16.1 ug/mg cr (<30)
== END 2024-07-10 09:21 | disposition home or self-care (01) ==
LOC: HO.10HDL 09:20
PROVIDERS: Visit Provider Internal Medicine Medical Oncology
DX: Z00.00 Encounter for general adult medical examination without abnormal findings (principal); N40.0 Benign prostatic hyperplasia without lower urinary tract symptoms; E78.2 Mixed hyperlipidemia; E11.8 Type 2 diabetes mellitus with unspecified complications
CPT/HCPCS: 36415; 80053; 80061; 82043; 82570; 83036; 85025

== ENCOUNTER 2024-10-24 10:50 | Outpatient (REF) | payer MEDICARE, OTHER, SELFPAY ==
[2024-10-24 13:35] LABS: MANUAL DIFF FLAG NO
[2024-10-24 14:02] LABS: Basophils Absolute Auto 0.1 X10*3/uL (0.0-0.2); Basophils Percent Auto 0.8 % (0-2); Eosinophils Absolute Auto 0.7 X10*3/uL (0.0-0.4); Hematocrit 50.5 % (42.0-52.0); Hemoglobin 17.1 g/dl (14.0-18.0); Imm Gran Abs Auto 0.02 X10*3/uL (0.00-0.03); Imm Gran Pct Auto 0.2 % (0.0-0.4); Lymphocytes Absolute Auto 2.2 X10*3/uL (1.2-4.9); Lymphocytes Percent Auto 24.5 % (20-40); Mean Corpuscular HGB Conc 33.9 g/dl (31.0-36.0); Mean Corpuscular Hemoglobin 30.1 pg (27.0-33.0); Mean Corpuscular Volume 88.8 fL (80.0-98.0); Monocytes Absolute Auto 0.7 X10*3/uL (0.1-1.2); Monocytes Percent Auto 8.1 % (2-11); Neutrophils Absolute Auto 5.2 x10*3/uL (2.0-8.3); Neutrophils Percent Auto 58.4 % (45-73); Platelet Count 155 X10*3/uL (160-400); Red Blood Count 5.69 X10*6/uL (4.60-5.80); Red Cell Distribution Width 13.4 % (11.0-16.0); White Blood Count 8.9 X10*3/uL (4.8-10.8)
[2024-10-24 14:46] LABS: Albumin Level 4.5 g/dL (3.5-5.0); Alkaline Phosphatase 89 U/L (39-117); Anion Gap 12 (12-20); Aspartate Amino Transferase 35 U/L (5-37); Bilirubin Total 1.7 mg/dL (0.0-1.0); Blood Urea Nitrogen 18 mg/dL (9-16); Calcium 9.9 mg/dL (8.4-10.2); Carbon Dioxide 28 mmol/L (22-29); Chloride 102 mmol/L (96-108); Cholesterol 127 mg/dL (<200); Estimated Average Glucose 169 mg/dL; Estimated Glomerular Filt Rate > 60; Glucose Fasting 155 mg/dL (60-99); HDL Cholesterol 35 mg/dL (>40); Hemoglobin A1c % 7.5 % (<6.0); LDL Cholesterol Calculated 68 mg/dL (<100); Potassium 3.6 mmol/L (3.3-5.1); Sodium 138 mmol/L (135-145); Total Hemoglobin (HGBA1C) 4222.1144 umol/L; Total Protein 7.3 g/dL (6.5-8.0); Triglycerides 122 mg/dL (<150)
[2024-10-24 14:49] LABS: Creatinine Urine 115.34 mg/dL; Microalbum/Creatinine Ratio Ur 11.2 ug/mg cr (<30)
[2024-10-24 18:20] LABS: Alanine Aminotransferase 39 U/L (0-40)
== END 2024-10-24 10:51 | disposition home or self-care (01) ==
LOC: HO.10HDL 10:50
PROVIDERS: Visit Provider Internal Medicine Medical Oncology
DX: E78.2 Mixed hyperlipidemia (principal); I25.10 Atherosclerotic heart disease of native coronary artery without angina pectoris; I10 Essential (primary) hypertension; E66.3 Overweight; E11.8 Type 2 diabetes mellitus with unspecified complications
CPT/HCPCS: 36415; 80053; 80061; 82043; 82570; 83036; 85025

== ENCOUNTER 2024-12-14 13:10 | Outpatient (AMB) | payer MEDICARE, OTHER, SELFPAY ==
--- NOTE | 2024-12-14 13:17 | A.OFFVIS_ITS ---
Vital Signs 12/14/24 13:19 Weight 213 lb 13.574 oz BP 104/68 Blood Pressure Location Lt brachial Position Sitting Pulse 84 Pulse Source Pulse Oximeter Pulse Oximetry (%) 95 Oxygen Delivery Method Room Air Intake Visit Reasons: christine Allergies metformin Allergy (Unknown, Verified 12/14/24 13:21) rash Medication List - Last Reconciled 12/14/24 by Veronica Owens LPN aspirin (Adult Low Dose Aspirin) 81 mg PO DAILY atorvastatin 80 mg PO DAILY blood sugar diagnostic (FreeStyle Lite Strips) 1 strip miscellaneous TID 90 days dulaglutide (Trulicity) 3 mg (0.5 mL) subcut QWEEK 90 days empagliflozin (Jardiance) 25 mg PO DAILY 90 days fluticasone propion-salmeterol 45-21 mcg/actuation (Advair HFA) inhalation hydrochlorothiazide 25 mg PO DAILY insulin glargine 36 units (0.36 mL) subcut DAILY 90 days lisinopril 40 mg PO DAILY metoprolol succinate ER 25 mg PO BID pen needle, diabetic Once a day HPI HPI christine: Details: 74-year-old gentleman, nonsmoker, with underlying history of what appears to be asthma, with reasonable control on Advair, but no recent pulmonary function testing referred to evaluate underlying sleep concerns. Patient states that he sleeps for approximately 10 hours, however he does not feel well rested when he gets up and he gets significant daytime somnolence. He does have family history of sleep apnea in his brother and father. He is interested further evaluation sleep apnea. He denies morning headaches. [facility] Medical History Atherosclerotic cardiovascular disease Diabetes type 2, uncontrolled Diabetic polyneuropathy associated with type 2 diabetes mellitus Dyslipidemia Hypertension skilled nursing (current) use of insulin Obesity (BMI 30-39.9) Surgical History Hx of colonoscopy Hx of vasectomy Family History Father No problems noted. Mother Diabetes Social History Household Members: Spouse and Family Alcohol intake: current Alcohol intake frequency: holidays/special occasions only Patient Tobacco Use Status: Former Tobacco user Review of Systems Const Reports daytime sleepiness, Denies excessive sweating, Reports fatigue, Denies fever(s), Denies lethargy, Denies malaise, Denies night sweats, Reports snoring and Denies weight loss Eyes Denies blurry vision and Denies itchy eyes ENT Denies nasal congestion, Denies post nasal drip, Denies sinus pain, Denies sinus pressure and Denies other ( Thrush) Card Denies chest pain, Denies pedal edema, Denies dyspnea, Denies orthopnea and Denies paroxysmal nocturnal dyspnea Resp Denies cough, Denies hemoptysis, Denies excessive phlegm production, Denies dyspnea, Reports snoring and Denies wheezing GI Denies abdominal pain and Denies heartburn Musc Denies myalgias, Denies arthralgias and Denies joint swelling Skin/Breast Denies rash Neuro Denies memory loss and Denies seizure-like activity Psych Denies abnormal sleep pattern, Denies anxiety and Denies memory loss Endo Denies excessive sweating, Reports fatigue and Denies heat intolerance Arben/Lymph Denies easy bruising Aller/Immun Denies itchy eyes, Denies seasonal rhinorrhea and Denies wheezing Physical Exam Vital Signs: Last Vital Signs Pulse 84 12/14/24 13:19 BP 104/68 12/14/24 13:19 Pulse Ox 95 12/14/24 13:19 Oxygen Delivery Method Room Air 12/14/24 13:19 Const General: no acute distress and alert Nutritional Appearance: not obese Orientation/consciousness: Other orientation findings ( oriented) HEENT Head: Yes atraumatic Eyes General: appearance normal, both eyes and all related structures Sclerae: sclerae normal EOM: EOMs intact bilaterally Neck Neck: Yes supple Lymphatic: no lymphadenopathy noted Resp Effort & Inspection: normal respiratory effort and no use of accessory muscles Auscultation: clear to auscultation bilaterally Cardio Rate: regular rate Rhythm: regular rhythm Heart sounds: no gallops, no murmurs and no rubs Skin General skin exam: other ( warm) Extrem General: No clubbing, No cyanosis and No edema Assessment & Plan Assessment & Plan (1) Asthma: Code(s): J45.909 - Unspecified asthma, uncomplicated Category: Medical Plan: Underlying asthma of unclear severity reasonably well controlled on Advair. Will obtain full PFT. Continue current regimen. (2) CHRISTINE (obstructive sleep apnea): Code(s): G47.33 - Obstructive sleep apnea (adult) (pediatric) Category: Medical Plan: Unrestful sleep, snoring, daytime somnolence. [place] Sleepiness Scale score of 14. Will obtain home sleep study. Orders: Orders PFT pulmonary function test Today G47.33 - Obstructive sleep apnea (adult) (pediatric), J45.909 - Unspecified asthma, uncomplicated RT home sleep study Today G47.33 - Obstructive sleep apnea (adult) (pediatric) Coding Level of Care Code New Pt Level 4 (59371) Diagnoses Asthma J45.909 CHRISTINE (obstructive sleep apnea) G47.33
[2024-12-14 13:19] VITALS: BP 104/68; PULSE 84; O2SAT 95
== END 2024-12-14 13:32 | disposition home or self-care (01) ==
PROVIDERS: PCP Internal Medicine Medical Oncology; Visit Provider Internal Medicine Pulmonary Disease
DX: J45.909 Unspecified asthma, uncomplicated (principal); G47.33 Obstructive sleep apnea (adult) (pediatric)
CPT/HCPCS: 99204

== ENCOUNTER → 2024-12-14 13:10 | Outpatient (BNVA) | payer MEDICARE, OTHER, SELFPAY | PROVIDERS: PCP Internal Medicine Medical Oncology; Visit Provider Internal Medicine Pulmonary Disease ==

== ENCOUNTER 2024-12-14 13:34 | Outpatient (REF) | payer MEDICARE, OTHER, SELFPAY ==
--- NOTE | 2024-12-14 13:42 | PFT_ITS ---
Indication: Asthma Spirometry [FEV1 to FVC 64% FEV1 3.04 L; FVC 4.72 L. no significant response to bronchodilators noted.] Lung Volumes [Total lung capacity 92% predicted] Diffusion Capacity [DLCO 104% predicted] Comparisons [none] Interpretation [There is an obstructive ventilatory defect consistent with mild COPD versus uncontrolled asthma. No significant response to bronchodilators noted. Lung volumes are low normal. Diffusing capacity is within normal limits. Clinical correlation warranted] MTDD
== END 2024-12-14 13:35 | disposition home or self-care (01) ==
LOC: HO.RESP 13:34
PROVIDERS: PCP Internal Medicine Medical Oncology; Visit Provider Internal Medicine Pulmonary Disease
DX: J45.909 Unspecified asthma, uncomplicated (principal); G47.33 Obstructive sleep apnea (adult) (pediatric)
CPT/HCPCS: 94010; 94640; 94727; 94729; 99202

== ENCOUNTER → 2025-03-08 10:01 | Outpatient (REF) | payer MEDICARE, OTHER, SELFPAY ==
--- OUTSIDE RECORDS SUMMARY | 2025-03-08 11:46 | XMS_ITS ---
Author Organization Nabil Benitez III, MD Address [address] [place] [address] Care Team Providers Care Burnisher Name Role Phone Nabil Benitez Primary Care Provider [phone] Allergies Allergen (clinical drug ingredient) Drug/Non Drug [...] diabetes shilo itus with complication, unspecified whether retirement insulin use (E11.8) Diagnosis 3 Daytime somnolence ( R40.0) Referral Organization Nabli Benitez III, MD Referring Provider First Name Nabil Referring Provider Last Name Eli Referring Provider Speciality Internal M edicine Referred Provider DEWEY MOJICA Referred Provider Specialty Pulmonary Di seases General Notes 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 Redding 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 PROFESSOR 11/06 01:43:38 PM > ref/demo/progress note faxed [...] Once a day Active Sure Comfort Pen [place] 32G X 4 MM Active Advair [...] Date Provider Diagnosis Nabil Benitez III, MD [address] [place] [address] [address], [place] [id number] 10/31/2024 Nabil Benitez Benign prostatic hyperplasia, unspecified whether lower urinary tract symptoms present N40.0 ; Type 2 diabetes mellitus with complication, unspecified whether lobsterman insulin use E11.8 ; Mixed hyperlipidemia E78.2 [...] Orally Once a day Sure Comfort Pen [place] 32G X 4 MM Advair HFA [...] Reason: OV review labs Provider Name:Nabil Benitez, 04/10/2025 03:00:00 PM, [address] [place] [address] , [place] [address], [place], [address], Progress Notes * FEDERICOARISALVERTO Jose ArmandoDOB: [birth year] (74 yo M)Acc No.[id number]:10/31/2024 Progress Notes Patient:?Jose Armando FOSTER Provider:?Nabil Benitez MD :1950???Age:73 Y???Sex:Male Jenaro e:10/31/2024 Address:[address] [place], [place] [id number] Subjective: * Chief Complaints: * ???Recent acute right knee p ainBenign prostatic hypertrophyCOPDCoronary artery diseaseDiabetesHypertensionHyperlipidemia * HPI: ???COVID-19 Screening:?He comes to the office today for a scheduled visit to monitor his metabolic syndrome.? His chief complaint today is pain in his right knee.? 2 weeks ago he developed pain in the back of his right knee without any trauma or undue strain.? It was very painful for a coouple of weeks but has now resolved.? Examination of his right knee was unremarkable today.His blood work from October 24 was reviewed in detail.His hemoglobin A1c was 7.5.He has lost 3 pounds and his body mass index is 28.? He seemed generally healthy and well today.? He has had no exertional angina. His dyspnea on exertion is stable and he is comfortable at rest. ?Questions?Have you had any new onset fever, chills, cough, congestion, sore throat, shortness of breath, muscle aches??No ?Have you been exposed to the virus within the last 10 days??No ?Have you travelled internationally in the last 10 days??No ?Have you been exposed to COVID-19 in the past??Yes * ROS:?General/Constitutional:?pain?Recent pain, posterior right knee.?Chills?denies.?Fatigue?admits.?Fever?denies.?ENT:?Decreased hearing?denies.?Respiratory:?Cough?denies.?Cardiovascular:?Chest pain with exertion?denies.?Dyspnea on exertion?denies.?Shortness of breath?with exertion.?Gastrointestinal:?Constipation?occasional.?Decreased appetite?denies.?Diarrhea?denies.?Heartburn?denies.?Nausea?denies.?Rectal bleeding?denies.?Vomiting?denies.?Hematology:?bruising?denies.?petechiae?denies.?Swollen glands?none have been noted.?Genitourinary:?Frequent urination?twice a night.?Musculoskeletal:?Muscle aches?denies.?Painful joints?denies.?Sciatica?denies.?Weakness?denies.?Skin:?Itching?denies.?Rash?denies.?Skin lesion(s)?denies.?Neurologic:?Difficulty speaking?denies.?Dizziness?denies.?Headache?denies.?Low back pain?denies.?Psychiatric:?Depressed mood?denies.? * Medical History:? * Surgical History:?vasectomy 05/1983colonoscopy, tubular adenomas 2009colonoscopy, Dr. High, one tubular adenoma 11/2018 * Hospitalization/Major Diagno stic Procedure:?Denies Past Hospitalization * Family History:?Father: dece ased 92 yrs, Aneurysm, asthma.?Mother: 89 yrs, Diabetes, neuropathy, dementia, diagnosed with DM.?Siblings: alive, diagnosed with Cancer.?3 brother(s) . 1 son(s) , 1 daughter(s) - healthy. .? father alive dx with aneurysum breathing problems. Mother alive Dx with diabetes type 2. Brother Dx with colon cancer. * Social History:?Tobacco Use:?Tobacco Use/Smoking?Patient is a?former smoker ?How long has it been since you last smoked??> 10 years ?Additional Findings: Tobacco Non-User?Ex-cigarette smoker ???He stopped smoking 20 years ago. 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 A daughter of a drug overdose. A son is alive with anxiety. He is retired. He has been to [facility] for many years. * Medications:?TakingJardiance 25 mg Tablet TAKE 1 TABLET DAILY [...] INHALATIONS TWICE A DAY Sure Comfort Pen [place] 32G X 4 MM Miscellaneous FreeStyle [...] TWICE A DAY Taking Sure Comfort Pen [place] 32G X 4 MM Miscellaneous Taking FreeStyle Lite Test - Strip In Vitro Taking Fluticasone-Salmeterol 45-21 MCG/ACT Aerosol USE 2 INHALATIONS TWICE A DAY Taking Lantus SoloStar 100 UNIT/ML Solution Pen-injector INJECT 36 UNITS UNDER THE SKIN DAILY Medication List reviewed and reconciled with the patient * Allergies:?Metformin HClCat DanderDust Mitesno[Allergies Verified] Objective: * Vitals:?Ht: 72, Wt:212, BMI: 28.75, BP:113/69, HR:76, Temp:98.8, Wt-k.16. A. * ???Past Orders: ???Lab:Complete Blood Count Auto Diff (Order Date - 10/24/2024) (Collection Date & Time - 10/24/2024 10:54 AM) ? Value Reference Range ?White Blood Count 8.9 4. 8-10.8 - X10*3/uL ?Red Blood Count 5.69 4.60 -5.80 - X10*6/uL ?Hemoglobin 17.1 14.0-18.0 - g/dl ?Hematocrit 50.5 42.0-52.0 - % ?Mean Corpuscular Volume 88.8 80.0-98.0 - fL ?Mean Corpuscular Hemoglobin 30.1 27.0-33.0 - pg ?Mean Corpuscular HGB Conc 33.9 31.0-36.0 - g/dl ?Red Cell Distribution Width 13.4 11.0-16.0 - % ?Platelet Count 155 L 160-4 00 - X10*3/uL ?Mean Platelet Volume 10.0 9.4-12.4 - fL ?Neutrophils Percent Auto 58.4 45-73 - % ?Imm Gran Pct Auto 0.2 0. 0-0.4 - % ?Lymphocytes Percent Auto 24.5 20-40 - % ?Monocytes Percent Auto 8.1 2-11 - % ?Eosinophils Percent Auto 8.0 H 0-4 - % ?Basophils Percent Auto 0.8 0-2 - % ?NRBC Pct Auto 0.0 0.0-0. 2 - /100WBC ?Neutrophils Absolute Auto 5.2 2.0-8.3 - x10*3/uL ?Imm Gran Abs Auto 0.02 0. 00-0.03 - X10*3/uL ?Lymphocytes Absolute Auto 2.2 1.2-4.9 - X10*3/uL ?Monocytes Absolute Auto 0.7 0.1-1.2 - X10*3/uL ?Eosinophils Absolute Auto 0.7 H 0.0-0.4 - X10*3/uL ?Basophils Absolute Auto 0.1 0.0-0.2 - X10*3/uL ?NRBC Abs Auto 0.000 0.0-0. 012 - X10*3/uL Lab:Alan Wellington l Fast * Collection Date 10/24/2024 07/10/2024 03/28/2024 Collection Time 10:54 AM 09:30 AM 10:32 AM Order Date 10/24/2024 07/10/2024 03/28/2024 Sodium 138 (Ref Range: 135-145 mmol/L) 138 (Ref Range: 135-145 mmol/L) 139 (Ref Range: 135-145 mmol/L) Bilirubin Total 1.7?H (Ref Range: 0.0-1.0 mg/dL) 1.8?H (Ref Range: 0.0-1.0 mg/dL) 1.6?H (Ref Range: 0.0-1.0 mg/dL) Aspartate Amino Transferase [...] 14 (Ref Range: 12-20) Blood Urea Nitrogen 18?H (Ref Range: 9-16 mg/dL) 15 (Ref Range: 9-16 mg/dL) 18?H (Ref Range: 9-16 mg/dL) Creatinine 1.07 (Ref Range: 0.5-1.4 mg/dL) 1.13 (Ref Range: 0.5-1.4 mg/dL) 0.96 (Ref Range: 0.5-1.4 mg/dL) Estimated Glomerular Filt Rate > 60 > 60 > 60 Glucose Fasting 155?H (Ref Range: 60-99 mg/dL) 140?H (Ref Range: 60-99 mg/dL) 145?H (Ref Range: 60-99 mg/dL) Calcium 9.9 (Ref [...] 63 (Ref Range: <100 mg/dL) HDL Cholesterol 35?L (Ref Range: >40 mg/dL) 33?L (Ref Range: >40 mg/dL) 35?L (Ref Range: >40 mg/dL) * Lab:Hemoglobin A1c * Collection Date 10/24/2024 07/10/2024 03/28/2024 Collection Time 10:54 AM 09:30 AM 10:32 AM Order Date 10/24/2024 07/10/2024 03/28/2024 Hemoglobin A1c % 7.5?H (Ref Range: <6.0 %) 7.8?H (Ref Range: <6.0 %) 7.5?H (Ref Range: <6.0 %) Estimated Average Glucose [...] (Ref Range: <30 ug/mg cr) * Examination: ???General Examination: ?GENERAL APPEARANCE:?pleasant, well nourished, well developed, in no acute distress, calm and relaxed.?HEAD:?atraumatic, normocephalic.?EYES:?eomi, perrla, anicteric, conjugate.?EARS:?normal.?NOSE:?septum intact.?ORAL CAVITY:?normal, unremarkable.?NECK/THYROID:?no jugular venous distention, no carotid bruit, thyroid normal.?LYMPH NODES:?no enlarged lymph nodes,spleen normal.?SKIN:?no suspicious lesions, anicteric.?HEART:?no clicks, gallops, murmurs, or rubs, regular rhythm, S1, S2 normal, no s3, or vascular bruits.?LUNGS:?clear to auscultation .?BREASTS:??no masses palpable bilaterally.?ABDOMEN:?bowel sounds normal, no ascites, no organomegaly, no mass.?RECTAL EXAM:?not examined.?MUSCULOSKELETAL:?extremities unremarkable, no clubbing, cyanosis or edema.?PERIPHERAL PULSES:?normal.?NEUROLOGIC:?alert and oriented, cranial nerves 2-12 grossly intact, deep tendon reflexes 2+ symmetrical, motor strength normal upper and lower extremities, sensory exam intact.?PSYCH:?alert, oriented.? Assessment: * Assessment: 1.?Type 2 diabetes mellitus with complication, unspecified whether lobsterman insulin use - E11.8 (Primary)???Notes :His hemoglobin A1c is 7.5.? We reviewed his diabetic diet and his weight and his cardiac risk factors in detail today.? Made a plan to lose weight.? He will continue his attempt to consume a healthy diabetic diet.???2.?Benign prostatic hyperplasia, unspecified whether lower urinary tract symptoms present - N40.0???Notes :He arises from sleep twice a night to urinate.? We discussed ways to reduce this to lifestyle modifications.???3.?Mixed hyperlipidemia - E78.2???Notes :His fasting lipid profile shows him to be N range.? No change in his therapy was necessary today.? I advised a healthy weight loss diabetic diet.???4.?Essential hypertension - I10???Notes :His blood pressure is currently stable and in his target range.? I recommended weight loss and sodium restriction but made no change in his medications.???5.?Overweight - E66.3???Notes :He remains in the overweight range but has lost 3 pounds.? We reviewed his weight loss strategy.? We made a plan to lose weight at a rate of one half of a pound per week.???6.?Former smoker - Z87.891???Notes :He is highly motivated not to smoke. We created a plan to prevent relapse in times of stress or illness.???7.?Primary osteoarthritis of both knees - M17.0???Notes :History knee pain has improved. His myelin at the end of the day. He is conducting all of the activities of daily life without impairment.??? Plan: * Treatment: 2.?Benign prostatic hyperpla gurpreet, unspecified whether lower urinary tract symptoms present?LAB: PROFILE, FASTING (COMPREHENSIVE METABOLIC) ?LAB: PSA, TOTAL ?LAB: MICROALBUMIN, RANDOM ?LAB: CBC w DIFF ?LAB: Lipid Panel ?LAB: Hemoglobin A1c 3.?Mixed hyperlipidemia?LAB: PROFILE, FASTING (COMPREHENSIVE METABOLIC) ?LAB: PSA, TOTAL ?LAB: MICROALBUMIN, RANDOM ?LAB: CBC w DIFF ?LAB: Lipid Panel ?LAB: Hemoglobin A1c 4.?Essential hypertension?LAB: PROFILE, FASTING (COMPREHENSIVE METABOLIC) ?LAB: PSA, TOTAL ?LAB: MICROALBUMIN, RANDOM ?LAB: CBC w DIFF ?LAB: Lipid Panel ?LAB: Hemoglobin A1c 5.?Overweight?LAB: PROFILE, FASTING (COMPREHENSIVE METABOLIC) ?LAB: PSA, TOTAL ?LAB: MICROALBUMIN, RANDOM ?LAB: CBC w DIFF ?LAB: Lipid Panel ?LAB: Hemoglobin A1c? Referral To:DEWEY MOJICA??Pulmonary Diseases ?Reason:family history of sleep apnea daytime somnolence excessive snoring evaluate and treat 6.?Others? Continue Fluticasone-Salmeterol Aerosol, 45-21 MCG/ACT, USE 2 INHALATIONS TWICE A DAY;?Continue Lantus SoloStar Solution Pen-injector, 100 UNIT/ML, INJECT 36 UNITS UNDER THE SKIN DAILY;?Continue Jardiance Tablet, 25 mg, TAKE 1 TABLET DAILY;?Continue Lisinopril Tablet, 40 mg, TAKE 1 TABLET DAILY;?Continue Trulicity Solution Pen-injector, 3 MG/0.5ML, INJECT 1 PEN WEEKLY;?Continue Metoprolol Succinate ER Tablet Extended Release 24 Hour, 25 mg, TAKE 1 TABLET TWICE A DAY;?Continue Atorvastatin Calcium Tablet, 80 mg, TAKE 1 TABLET DAILY;?Continue hydroCHLOROthiazide Tablet, 25 mg, TAKE 1 TABLET DAILY IN THE MORNING;?Continue Toprol XL Tablet Extended Release 24 Hour, 25 MG, TAKE 1 TABLET TWICE A DAY;?Continue Aspirin 81 Tablet Chewable, 81 MG, 1 tablet, Orally, Once a day;?Continue CoQ10 Capsule, 200 MG, 1 capsule with a meal, Orally, Once a day;?Continue Januvia Tablet, 100 MG, 1 tablet, Orally, Once a day;?Continue Symbicort Aerosol, 80-4.5 MCG/ACT, 2 puffs, Inhalation, Twice a day;?Continue Advair HFA Aerosol, 45-21 MCG/ACT, USE 2 INHALATIONS TWICE A DAY;?Continue Sure Comfort Pen [place] Miscellaneous, 32G X 4 MM; Continue FreeStyle Lite Test Strip, -, In Vitro.? Referral To:DEWEY MOJICA??Pulmonary Diseases ?Reason:family history of sleep apnea daytime somnolence excessive snoring evaluate and treat * Procedure Codes:? * Preventive Medicine:? ??Counseling:?Care goal follow-up plan:?Counseling for abnormal BMI given?Yes ?Above Normal BMI Follow-up?Dietary management education, guidance, and counseling, Dietary needs education ?Smoking/Tobacco Use?Patient counseled on the dangers of tobacco use and urged to quit.?10/31/2024 ??DM Care Plan:?Patient Lifestyle Goals?Patient wants to be able to manage diabetes without too much effort.?Treatment Goals?HbA1C < 7.0, Blood Sugars less than < 115.?Barriers?no barriers.?Self-Managment Goals?Work on weight loss, with a goal of losing 1 lb per week.? * Follow Up:?May as scheduled (Reason: OV review labs) * Images: * Sign off status: Completed true * Provider:?Nabil Benitez MD Date:?10/22 Generated for Printi ng/Elder/eTransmitting on:?03/08/2025 11:46 AM EDT History and Physical Notes * HPI (History of Present Illness) Category Sub-Category Detail Notes COVID-19 Screening Questions Have you had any new onset fever, chills, cough, congestion, sore throat, shortness of breath, muscle aches?: No Have you been exposed to the virus withi n the last 10 days?: No Have you travelled internationally in [facility] last 10 days?: No Have you been [...] Notes Referral Date Referring Provider Referred Provider Not es 10/31/2024 Nabil Benitez MIGUEL [facility] story of sleep apnea daytime somnolence excessive snoring evaluate and treat
--- OUTSIDE RECORDS SUMMARY | 2025-03-08 11:47 | XMS_ITS ---
Author Organization Nabil Benitez III, MD Address [address] [place] [address] Care Team Providers Care Lard Bleacher Name Role Phone Nabil Benitez Primary Care Provider [phone] Allergies Allergen (clinical drug ingredient) Drug/Non Drug [...] 1 PEN WEEKLY Active Sure Comfort Pen Barre 32G X 4 MM Active FreeStyle Lite [...] Date Provider Diagnosis Nabil Benitez III, MD [address] [place] [address] [address] [place], [place] [id number] 07/11/2024 Nabil Benitez Mixed hyperlipidemia E78.2 ; Coronary artery disease involving [place] coronary artery of [place] heart without angina pectoris I25.10 ; Essential hypertension I10 ; Overweight E66.3 ; Type 2 diabetes mellitus with complication, unspecified whether director long term care insulin use E11.8 and Former smoker Z87.891 Assessments Encounter Date Diagnosis (ICD Code) Assessment Notes Treat ment Notes Treatment Clinical Notes 07/11/2024 Mixed hyperlipidemia (ICD-10 - E78.2) The current fasting lipid profile shows excellent control of his lipids. We discussed weight reduction strategies today. No change in his medications was necessary. 07/11/2024 Coronary artery disease involving [place] coronary artery of [place] heart without angina pectoris (ICD-10 - I25.10) [...] 2 diabetes mellitus with complication, unspecified whether director long term care insulin use (ICD-10 - E11.8) His fasting [...] INJECT 1 PEN WEEKLY Sure Comfort Pen Barre 32G X 4 MM FreeStyle Lite Test [...] October, Reason: ov review labs Provider Name:Nabil Benitez, 04/10/2025 03:00:00 PM, [address] [place] [address] [address] [place], [place], [id number], Progress Notes * Jose Armando MESSINADOB: [birth year] (73 yo M)Acc No.[id number]:07/11/2024 Progress Notes Patient:?Jose Armando Messina Provider:?Nabil Benitez MD :1950???Age:73 Y???Sex:Male Jenaro e:07/11/2024 Address: [facility] Subjective: * Chief Complaints: * ???DiabetesCOPDArthritis bot h kneesHyperlipidemiaCoronary artery diseaseHypertension * HPI: ???COVID-19 Screening:?Questions?Have you experienced fever, chills, cough, sore throat, shortness of breath, difficulty breathing, muscle aches, loss of taste or smell??No ?Have you been exposed to the virus within the last 10 days??No ?Have you travelled internationally in the last 10 days??No ?Have you been exposed to COVID-19 in the past??Yes ? He has had a cough lately likely a viral bronchitis. He is coughing up yellow phlegm but has no fever or chills. He says his diabetes is controlled with blood glucose levels under 150 even though his pharmacy is out of stock of YYoga. The battery in his glucometer is . His breathing is unlabored. He continues to have some pain in his right knee but it is not worse. He has had no angina syncope or palpitations. 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 He has been stable. * ROS:?General/Constitutional:?pain?Both knees.?Chills?denies.?Fatigue?admits.?Fever?denies.?ENT:?Decreased hearing?denies.?Respiratory:?Cough?non-productive.?Cardiovascular:?Chest pain with exertion?denies.?Dyspnea on exertion?denies.?Shortness of breath?denies.?Gastrointestinal:?Constipation?occasional.?Decreased appetite?denies.?Diarrhea?denies.?Heartburn?denies.?Nausea?denies.?Rectal bleeding?denies.?Vomiting?denies.?Hematology:?bruising?denies.?petechiae?denies.?Swollen glands?none have been noted.?Genitourinary:?Frequent urination?once a night.?Musculoskeletal:?Muscle aches?denies.?Painful joints?denies.?Sciatica?denies.?Weakness?denies.?Skin:?Itching?denies.?Rash?denies.?Skin lesion(s)?denies.?Neurologic:?Difficulty speaking?denies.?Dizziness?denies.?Headache?denies.?Low back [...] smoking 20 years ago. 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 A daughter of a drug overdose. A son is alive with anxiety. He is retired. He has been to [facility] for many years. * Medications:?TakingTrulicity 3 MG/0.5ML Solution Pen-injector INJECT 1 PEN [...] Tablet Chewable 1 tablet Orally Once a [id number] 200 MG Capsule 1 capsule with a meal Orally Once a dayJanuvia 100 MG Tablet 1 tablet Orally Once a daySymbicort 80-4.5 MCG/ACT Aerosol 2 puffs Inhalation Twice a dayAdvair HFA 45-21 MCG/ACT Aerosol USE 2 INHALATIONS TWICE A DAY Lantus SoloStar 100 UNIT/ML Solution Pen-injector Subcutaneous Sure Comfort Pen Barre 32G X 4 MM Miscellaneous FreeStyle Lite [...] Solution Pen-injector Subcutaneous Taking Sure Comfort Pen Barre 32G X 4 MM Miscellaneous Taking FreeStyle Lite Test - Strip In Vitro Taking Lisinopril 40 mg Tablet TAKE 1 TABLET DAILY Taking Jardiance 25 mg Tablet TAKE 1 TABLET DAILY Medication List reviewed and reconciled with the patient * Allergies:?Metformin HClCat DanderDust Mitesno[Allergies Verified] Objective: * Vitals:?Ht: 72, Wt:215, BMI: 29.16, BP:110/74, HR:69, Temp:97.8, Wt-k.52. * ???Past Orders: Lab:Lipid Panel * Order Date 07/10/2024 03/28/2024 08/31/2023 Triglycerides 146 (Ref Range: <150 mg/dL) 126 (Ref Range: <150 mg/dL) 123 (Ref Range: <150 mg/dL) Cholesterol 116 (Ref Range: <200 mg/dL) 123 (Ref Range: <200 mg/dL) 118 (Ref Range: <200 mg/dL) LDL Cholesterol Calculated 54 (Ref Range: <100 mg/dL) 63 (Ref Range: <100 mg/dL) 61 (Ref Range: <100 mg/dL) HDL Cholesterol 33?L (Ref Range: >40 mg/dL) 35?L (Ref Range: >40 mg/dL) 33?L (Ref Range: >40 mg/dL) * Lab:Comprehensive [facility] * Order Date 07/10/2024 03/28/2024 08/31/2023 Sodium 138 (Ref Range: 135-145 mmol/L) 139 (Ref Range: 135-145 mmol/L) 138 (Ref Range: 135-145 mmol/L) Bilirubin Total 1.8?H (Ref Range: 0.0-1.0 mg/dL) 1.6?H (Ref Range: 0.0-1.0 mg/dL) 1.4?H (Ref Range: 0.0-1.0 mg/dL) Aspartate Amino Transferase [...] Urea Nitrogen 15 (Ref Range: 9-16 mg/dL) 18?H (Ref Range: 9-16 mg/dL) 20?H (Ref Range: 9-16 mg/dL) Creatinine 1.13 (Ref Range: 0.5-1.4 mg/dL) 0.96 (Ref Range: 0.5-1.4 mg/dL) 0.95 (Ref Range: 0.5-1.4 mg/dL) Estimated Glomerular Filt Rate > 60 > 60 > 60 Glucose Fasting 140?H (Ref Range: 60-99 mg/dL) 145?H (Ref Range: 60-99 mg/dL) 168?H (Ref Range: 60-99 mg/dL) Calcium 10.1 (Ref [...] 13.5 (Ref Range: 11.0-16.0 %) Platelet Count 142?L (Ref Range: 160-400 X10*3/uL) 152?L (Ref Range: 160-400 X10*3/uL) 173 (Ref Range: [...] (Ref Range: 2-11 %) Eosinophils Percent Auto 7.5?H (Ref Range: 0-4 %) 6.8?H (Ref Range: 0-4 %) 6.3?H (Ref Range: 0-4 %) Basophils Percent Auto [...] (Ref Range: 0.1-1.2 X10*3/uL) Eosinophils Absolute Auto 0.6?H (Ref Range: 0.0-0.4 X10*3/uL) 0.5?H (Ref Range: 0.0-0.4 X10*3/uL) 0.5?H (Ref Range: 0.0-0.4 X10*3/uL) Basophils Absolute Auto 0.1 (Ref Range: 0.0-0.2 X10*3/uL) 0.0 (Ref Range: 0.0-0.2 X10*3/uL) 0.1 (Ref Range: 0.0-0.2 X10*3/uL) NRBC Abs Auto 0.000 (Ref Range: 0.0-0.012 X10*3/uL) 0.000 (Ref Range: 0.0-0.012 X10*3/uL) 0.000 (Ref Range: 0.0-0.012 X10*3/uL) * Lab:Hemoglobin A1c * Order Date 07/10/2024 03/28/2024 08/31/2023 Hemoglobin A1c % 7.8?H (Ref Range: <6.0 %) 7.5?H (Ref Range: <6.0 %) 7.2?H (Ref Range: <6.0 %) Estimated Average Glucose [...] 9.9 (Ref Range: ug/mg cr) * Examination: ???General Examination: ?GENERAL APPEARANCE:?pleasant, well nourished, well developed, in no acute distress, calm and relaxed , overweight , man.?HEAD:?atraumatic, normocephalic.?EYES:?eomi, perrla, anicteric, conjugate.?EARS:?normal.?NOSE:?septum intact.?ORAL CAVITY:?normal, unremarkable.?NECK/THYROID:?no jugular venous distention, no carotid bruit, thyroid normal.?LYMPH NODES:?no enlarged lymph nodes,spleen normal.?SKIN:?no suspicious lesions, anicteric.?HEART:?no clicks, gallops, murmurs, or rubs, regular rhythm, S1, S2 normal, no s3, or vascular bruits.?LUNGS:?clear to auscultation .?BREASTS:??no masses palpable bilaterally.?ABDOMEN:?bowel sounds normal, no ascites, no organomegaly, no mass , overweight.?RECTAL EXAM:?not examined.?MUSCULOSKELETAL:??no clubbing, cyanosis or edema, Crepitus both knees.?PERIPHERAL PULSES:?normal.?NEUROLOGIC:?alert and oriented, cranial nerves 2-12 grossly intact, deep tendon reflexes 2+ symmetrical, motor strength normal upper and lower extremities, sensory exam intact.?PSYCH:?alert, oriented.? Assessment: * Assessment: 1.?Mixed hyperlipidemia - E7 8.2, The current fasting lipid profile shows excellent control of his lipids. We discussed weight reduction strategies today. No change in his medications was necessary.?2.?Coronary artery disease involving [place] coronary artery of [place] heart without angina pectoris - I25.10, His coronary artery disease is stable. His pain up-to-date with cardiology. No change in his regimen as needed today.?3.?Essential hypertension - I10, His blood pressure is currently well controlled and within normal limits. I recommended aggressive weight loss combined with sodium restriction.?4.?Overweight - E66.3, HisHis body mass index is 29. We reviewed his diet and his nutrition. We made a plan to lose weight at a rate of one half of a pound per week through a diet restricted in fat calories and sodium combined with regular activity.?5.?Type 2 diabetes mellitus with complication, unspecified whether director long term care insulin use - E11.8, His fasting glucose is 140 with a hemoglobin A1c of 7.8. This is slightly higher than in the past. We discussed weight reduction strategies, a diabetic diet, regular physical activity and to reduce calorie diet. I recommended aggressive weight loss.?6.?Former smoker - Z87.891, He is highly motivated not to smoke. We created a plan to prevent relapse in times of stress or illness.? Plan: * Treatment: 2.?Coronary artery disease i [place]volving [place] coronary artery of [place] heart without angina pectoris?LAB: PROFILE, FASTING (COMPREHENSIVE METABOLIC) ?LAB: MICROALBUMIN, RANDOM ?LAB: CBC w DIFF ?LAB: Lipid Panel ?LAB: Hemoglobin A1c 3.?Essential hypertension?LAB: PROFILE, FASTING (COMPREHENSIVE METABOLIC) ?LAB: MICROALBUMIN, RANDOM ?LAB: CBC w DIFF ?LAB: Lipid Panel ?LAB: Hemoglobin A1c 4.?Overweight?LAB: PROFILE, FASTING (COMPREHENSIVE METABOLIC) ?LAB: MICROALBUMIN, RANDOM ?LAB: CBC w DIFF ?LAB: Lipid Panel ?LAB: Hemoglobin A1c 5.?Type 2 diabetes mellitus with complication, unspecified whether director long term care insulin use?LAB: PROFILE, FASTING (COMPREHENSIVE METABOLIC) ?LAB: MICROALBUMIN, RANDOM ?LAB: CBC w DIFF ?LAB: Lipid Panel ?LAB: Hemoglobin A1c 6.?Others? Continue Jardiance Tablet, 25 mg, TAKE 1 [...] DAY;?Continue Lantus SoloStar Solution Pen-injector, 100 UNIT/ML, Subcutaneous;?Continue Sure Comfort Pen Barre Miscellaneous, 32G X 4 MM;?Continue FreeStyle Lite Test Strip, -, In Vitro.?? * Procedure Codes:? * Preventive Medicine:? ??Counseling:?Care [...] done: Medical or Other reason not done ?Smoking/Tobacco Use?Patient counseled on the dangers of tobacco use and urged to quit.?07/11/2024 ??DM Care Plan:?Patient Lifestyle Goals?Patient wants to be able to manage diabetes without too much effort.?Treatment Goals?HbA1C < 7.0, Blood Sugars less than < 115.?Barriers?no barriers.?Self-Managment Goals?Work on weight loss, with a goal of losing 1 lb per week.? * Follow Up:?October (Reason: ov review labs ) * Images: * Sign off status: Completed true * Provider:?Nabil Benitez MD Date:?06/23 Generated for Blaine dowell/Elder/Danyelle on:?03/08/2025 11:47 AM EDT History and Physical Notes * HPI (History of Present Illness) Category Sub-Category Detail Notes COVID-19 Screening Questions Have you had any new onset fever, chills, cough, congestion, sore throat, shortness of breath, muscle aches?: No Have you been exposed to the virus withi n the last 10 days?: No Have you travelled internationally in e last 10 days?: No Have you been [...]
--- OUTSIDE RECORDS SUMMARY | 2025-03-08 11:47 | XMS_ITS | Patient Health Record ---
Author Organization Nabil Benitez III, MD Address [address] [place] [address] Care Team Providers Care Data Steward Name Role Phone Nabil Benitez Primary Care Provider Allergies Allergen (clinical drug ingredient) Drug/Non Drug Allergy documented on EMR Reaction Allergy Type Onset Date Status Dust Mites Unknown Allergy Active Cat dander Cat Dander Unknown Allergy Active metformin Metformin HCl Unknown Drug Allergy Act lauren Results Component Value Reference Range Notes URINE DIP STICK Reviewed date:04/07/2024 03:44:20 PM Interpretation: Performing Lab: Notes/Report: SG 1.020 1.005 - 1.025 pH 5.0 5.0 - 9.0 BRETT Negative Negative - NIT Negative Negative - PRO 15 Negative - Trace GLU 1000 Negative - KET Negative Negative - UBG 0.2 0.1 - 1.8 CHANDLER Negative 0.2 - 1.3 BLD Negative Negative - SCREENING COLONOSCOPY Reviewed date:03/22/2024 01:47:16 PM Interpretation:undefined Performing Lab: Notes/Report: undefined Complete Blood Count Auto Di ff Reviewed date:03/28/2024 04:16:40 PM Interpretation: Performing Lab:[facility], [address] [place] [phone] Notes/Report: White Blood Count 7.9 4.8-10.8 X10*3/uL Red Blood Count 5.56 4.60-5.80 X10*6/uL Hemoglobin 17.0 14.0-18.0 g/dl Hematocrit 49.5 42.0-52.0 % Mean Corpuscular Volume 89.0 80.0-98.0 fL Mean Corpuscular Hemoglobin 30.6 27.0-33.0 pg Mean Corpuscular HGB Conc 34.3 31.0-36.0 g/dl Red Cell Distribution Width 13.3 11.0-16.0 % Platelet Count 152 160-400 X10*3/uL Mean Platelet Volume 9.8 9.4-12.4 fL Neutrophils Percent Auto 60.7 45-73 % Imm Gran Pct Auto 0.3 0.0-0.4 % Lymphocytes Percent Auto 24.4 20-40 % Monocytes Percent Auto 7.3 2-11 % Eosinophils Percent Auto 6.8 0-4 % Basophils Percent Auto 0.5 0-2 % NRBC Pct Auto 0.0 0.0-0.2 /100WBC Neutrophils Absolute Auto 4.8 2.0-8.3 x10*3/u L Imm Gran Abs Auto 0.02 0.00-0.03 X10*3/uL Lymphocytes Absolute Auto 1.9 1.2-4.9 X10*3/u L Monocytes Absolute Auto 0.6 0.1-1.2 X10*3/uL Eosinophils Absolute Auto 0.5 0.0-0.4 X10*3/u L Basophils Absolute Auto 0.0 0.0-0.2 X10*3/uL NRBC Abs Auto 0.000 0.0-0.012 X10*3/uL Comprehensive Davy. Panel Fa st Reviewed date:03/28/2024 04:16:40 PM Interpretation: Performing Lab:[facility], [address] [place] [phone] Notes/Report: Sodium 139 135-145 mmol/L Potassium 3.5 3.3-5.1 mmol/L Chloride 102 96-108 mmol/L Carbon Dioxide 27 22-29 mmol/L Anion Gap 14 12-20 Blood Urea Nitrogen 18 9-16 mg/dL Creatinine 0.96 0.5-1.4 mg/dL Estimated Glomerular Filt Rate > 60 NOTE: For -Macedonian individuals, multiply the result by 1.210. Chronic Kidney Disease: Estimated GFR < 60 mL/min/1.73m2 Severe Kidney Disease: Estimated GFR < 15 mL/min/1.73m2 Glucose Fasting 145 60-99 mg/dL A fasting glucose of 126 mg/dl or greater on more than one occasion is considered diagnostic of diabetes. Calcium 10.0 8.4-10.2 mg/dL Bilirubin Total 1.6 0.0-1.0 mg/dL Aspartate Amino Transferase 28 5-37 U/L Alanine Aminotransferase 37 0-40 U/L Total Protein 7.2 6.5-8.0 g/dL Albumin Level 4.4 3.5-5.0 g/dL Alkaline Phosphatase 81 39-117 U/L Lipid Panel Reviewed date:03/28/2024 04:16:40 PM Interpretation: Performing Lab:[address] [phone] Notes/Report: Triglycerides 126 <150 mg/dL Desirable Triglyceride: less than 150 mg/dL Borderline High Triglyceride 150-199 mg/dL High Triglyceride: 200-499 mg/dL Very High Triglyceride: greater than or equal to 5OO mg/dL Cholesterol 123 <200 mg/dL Desirable Cholesterol: less than 200 mg/dL Borderline High Cholesterol: 200-239 mg/dL High Cholesterol: greater than 239 mg/dL LDL Cholesterol Calculated 63 <100 mg/dL Desirable LDL: less than 100 mg/dL Near Optimal/Above Optimal LDL: 110-129 mg/dL Borderline High LDL: 130-159 mg/dL High LDL: 160-189 mg/dL Very High LDL: greater than or equal to 190 mg/dL HDL Cholesterol 35 >40 mg/dL Desirable HDL: greater than 40 mg/dL Note: This HDL assay may give artificially low results in patients with liver disease. Prostate Specific Antigen Reviewed date:03/28/2024 04:16:40 PM Interpretation: Performing Lab:[address] [phone] Notes/Report: Prostate Specific Antigen 2.63 <0.05-4.0 ng/mL PSA methodology: Vega Alinity i Chemiluminescent Microparticle Immunoassay (CMIA) Microalbumin, Random Reviewed date:03/28/2024 04:16:41 PM Interpretation: Performing Lab:[address] [phone] Notes/Report: Creatinine Urine 92.69 Microalbumin Urine 17.0 Microalbum/Creatinine Ratio Ur 18.3 <30 ug/mg cr Albumin/Creatinine Ratio Reference Ranges: Normal: < 30 ug/mg creatinine Microalbuminuria: 30 - 300 ug/mg creatinine Clinical Albuminuria: > 300 ug/mg creatinine Hemoglobin A1c Reviewed date:03/28/2024 04:16:40 PM Interpretation: Performing Lab:[facility], [address] [place] [phone] Notes/Report: Hemoglobin A1c % 7.5 <6.0 % Hemoglobin A1C Reference Range Adults: 4.8 - 6.0 % Non diabetic: < 6.0 % Goal: < 7.0 % Additional Action Suggested: > 8.0 % Note: Hemoglobin A1c results are invalid for patients with abnormal amounts of HbF. Blood transfusions may impact the HbA1c concentration in the patient sample. Estimated Average Glucose 169 eAG = Estimated average glucose which is %A1C expressed as average glucose, using the formula of the N0V-Pknlyfh Average Glucose study (ADAG), Diabetes Care, Vol.31,#8, Jun. 2007 Complete Blood Count Auto Di ff Reviewed date:07/13/2024 08:30:41 PM Interpretation: Performing Lab:[facility], [address] [place] [phone] Notes/Report: White Blood Count 8.1 4.8-10.8 X10*3/uL Red Blood Count 5.61 4.60-5.80 X10*6/uL Hemoglobin 17.0 14.0-18.0 g/dl Hematocrit 50.2 42.0-52.0 % Mean Corpuscular Volume 89.5 80.0-98.0 fL Mean Corpuscular Hemoglobin 30.3 27.0-33.0 pg Mean Corpuscular HGB Conc 33.9 31.0-36.0 g/dl Red Cell Distribution Width 13.3 11.0-16.0 % Platelet Count 142 160-400 X10*3/uL Mean Platelet Volume 9.8 9.4-12.4 fL Neutrophils Percent Auto 52.6 45-73 % Imm Gran Pct Auto 0.4 0.0-0.4 % Lymphocytes Percent Auto 29.8 20-40 % Monocytes Percent Auto 9.1 2-11 % Eosinophils Percent Auto 7.5 0-4 % Basophils Percent Auto 0.6 0-2 % NRBC Pct Auto 0.0 0.0-0.2 /100WBC Neutrophils Absolute Auto 4.2 2.0-8.3 x10*3/u L Imm Gran Abs Auto 0.03 0.00-0.03 X10*3/uL Lymphocytes Absolute Auto 2.4 1.2-4.9 X10*3/u L Monocytes Absolute Auto 0.7 0.1-1.2 X10*3/uL Eosinophils Absolute Auto 0.6 0.0-0.4 X10*3/u L Basophils Absolute Auto 0.1 0.0-0.2 X10*3/uL NRBC Abs Auto 0.000 0.0-0.012 X10*3/uL Comprehensive Davy. Panel Fa st Reviewed date:07/13/2024 08:30:41 PM Interpretation: Performing Lab:[facility], [address] [place] [phone] Notes/Report: Sodium 138 135-145 mmol/L Potassium 4.1 3.3-5.1 mmol/L Chloride 101 96-108 mmol/L Carbon Dioxide 28 22-29 mmol/L Anion Gap 13 12-20 Blood Urea Nitrogen 15 9-16 mg/dL Creatinine 1.13 0.5-1.4 mg/dL Estimated Glomerular Filt Rate > 60 NOTE: For -Macedonian individuals, multiply the result by 1.210. Chronic Kidney Disease: Estimated GFR < 60 mL/min/1.73m2 Severe Kidney Disease: Estimated GFR < 15 mL/min/1.73m2 Glucose Fasting 140 60-99 mg/dL A fasting glucose of 126 mg/dl or greater on more than one occasion is considered diagnostic of diabetes. Calcium 10.1 8.4-10.2 mg/dL Bilirubin Total 1.8 0.0-1.0 mg/dL Aspartate Amino Transferase 34 5-37 U/L Alanine Aminotransferase 38 0-40 U/L Total Protein 7.2 6.5-8.0 g/dL Albumin Level 4.5 3.5-5.0 g/dL Alkaline Phosphatase 81 39-117 U/L Lipid Panel Reviewed date:07/13/2024 08:30:41 PM Interpretation: Performing Lab:[facility], [address] [place] [phone] Notes/Report: Triglycerides 146 <150 mg/dL Desirable Triglyceride: less than 150 mg/dL Borderline High Triglyceride 150-199 mg/dL High Triglyceride: 200-499 mg/dL Very High Triglyceride: greater than or equal to 5OO mg/dL Cholesterol 116 <200 mg/dL Desirable Cholesterol: less than 200 mg/dL Borderline High Cholesterol: 200-239 mg/dL High Cholesterol: greater than 239 mg/dL LDL Cholesterol Calculated 54 <100 mg/dL Desirable LDL: less than 100 mg/dL Near Optimal/Above Optimal LDL: 110-129 mg/dL Borderline High LDL: 130-159 mg/dL High LDL: 160-189 mg/dL Very High LDL: greater than or equal to 190 mg/dL HDL Cholesterol 33 >40 mg/dL Desirable HDL: greater than 40 mg/dL Note: This HDL assay may give artificially low results in patients with liver disease. Microalbumin, Random Reviewed date:07/13/2024 08:30:41 PM Interpretation: Performing Lab:[address] [phone] Notes/Report: Creatinine Urine 80.31 Microalbumin Urine 13.0 Microalbum/Creatinine Ratio Ur 16.1 <30 ug/mg cr Albumin/Creatinine Ratio Reference Ranges: Normal: < 30 ug/mg creatinine Microalbuminuria: 30 - 300 ug/mg creatinine Clinical Albuminuria: > 300 ug/mg creatinine Hemoglobin A1c Reviewed date:07/13/2024 08:30:41 PM Interpretation: Performing Lab:[address] [phone] Notes/Report: Hemoglobin A1c % 7.8 <6.0 % Hemoglobin A1C Reference Range Adults: 4.8 - 6.0 % Non diabetic: < 6.0 % Goal: < 7.0 % Additional Action Suggested: > 8.0 % Note: Hemoglobin A1c results are invalid for patients with abnormal amounts of HbF. Blood transfusions may impact the HbA1c concentration in the patient sample. Estimated Average Glucose 177 eAG = Estimated average glucose which is %A1C expressed as average glucose, using the formula of the [id number] Average Glucose study (ADAG), Diabetes Care, Vol.31,#8, 2007 Diabetic Eye Exam Reviewed date:08/02/2024 02:04:54 PM Interpretation:undefined Performing Lab: Notes/Report: undefined Complete Blood Count Auto Di ff Reviewed date:10/30/2024 05:30:49 AM Interpretation: Performing Lab:[address] [phone] Notes/Report: White Blood Count 8.9 4.8-10.8 X10*3/uL Red Blood Count 5.69 4.60-5.80 X10*6/uL Hemoglobin 17.1 14.0-18.0 g/dl Hematocrit 50.5 42.0-52.0 % Mean Corpuscular Volume 88.8 80.0-98.0 fL Mean Corpuscular Hemoglobin 30.1 27.0-33.0 pg Mean Corpuscular HGB Conc 33.9 31.0-36.0 g/dl Red Cell Distribution Width 13.4 11.0-16.0 % Platelet Count 155 160-400 X10*3/uL Mean Platelet Volume 10.0 9.4-12.4 fL Neutrophils Percent Auto 58.4 45-73 % Imm Gran Pct Auto 0.2 0.0-0.4 % Lymphocytes Percent Auto 24.5 20-40 % Monocytes Percent Auto 8.1 2-11 % Eosinophils Percent Auto 8.0 0-4 % Basophils Percent Auto 0.8 0-2 % NRBC Pct Auto 0.0 0.0-0.2 /100WBC Neutrophils Absolute Auto 5.2 2.0-8.3 x10*3/u L Imm Gran Abs Auto 0.02 0.00-0.03 X10*3/uL Lymphocytes Absolute Auto 2.2 1.2-4.9 X10*3/u L Monocytes Absolute Auto 0.7 0.1-1.2 X10*3/uL Eosinophils Absolute Auto 0.7 0.0-0.4 X10*3/u L Basophils Absolute Auto 0.1 0.0-0.2 X10*3/uL NRBC Abs Auto 0.000 0.0-0.012 X10*3/uL Comprehensive Davy. Panel Fa st Reviewed date:10/30/2024 05:30:49 AM Interpretation: Performing Lab:[facility], [address] [place] [phone] Notes/Report: Sodium 138 135-145 mmol/L Potassium 3.6 3.3-5.1 mmol/L Chloride 102 96-108 mmol/L Carbon Dioxide 28 22-29 mmol/L Anion Gap 12 12-20 Blood Urea Nitrogen 18 9-16 mg/dL Creatinine 1.07 0.5-1.4 mg/dL Estimated Glomerular Filt Rate > 60 Chronic Kidney Disease: Estimated GFR < 60 mL/min/1.73m2 Severe Kidney Disease: Estimated GFR < 15 mL/min/1.73m2 Glucose Fasting 155 60-99 mg/dL A fasting glucose of 126 mg/dl or greater on more than one occasion is considered diagnostic of diabetes. Calcium 9.9 8.4-10.2 mg/dL Bilirubin Total 1.7 0.0-1.0 mg/dL Aspartate Amino Transferase 35 5-37 U/L Alanine Aminotransferase 39 0-40 U/L Total Protein 7.3 6.5-8.0 g/dL Albumin Level 4.5 3.5-5.0 g/dL Alkaline Phosphatase 89 39-117 U/L Lipid Panel Reviewed date:10/30/2024 05:30:49 AM Interpretation: Performing Lab:[facility], [address] [place] [phone] Notes/Report: Triglycerides 122 <150 mg/dL Desirable Triglyceride: less than 150 mg/dL Borderline High Triglyceride 150-199 mg/dL High Triglyceride: 200-499 mg/dL Very High Triglyceride: greater than or equal to 5OO mg/dL Cholesterol 127 <200 mg/dL Desirable Cholesterol: less than 200 mg/dL Borderline High Cholesterol: 200-239 mg/dL High Cholesterol: greater than 239 mg/dL LDL Cholesterol Calculated 68 <100 mg/dL Desirable LDL: less than 100 mg/dL Near Optimal/Above Optimal LDL: 110-129 mg/dL Borderline High LDL: 130-159 mg/dL High LDL: 160-189 mg/dL Very High LDL: greater than or equal to 190 mg/dL HDL Cholesterol 35 >40 mg/dL Desirable HDL: greater than 40 mg/dL Note: This HDL assay may give artificially low results in patients with liver disease. Microalbumin, Random Reviewed date:10/30/2024 05:30:49 AM Interpretation: Performing Lab:[address] [phone] Notes/Report: Creatinine Urine 115.34 Microalbumin Urine 13.0 Microalbum/Creatinine Ratio Ur 11.2 <30 ug/mg cr Albumin/Creatinine Ratio Reference Ranges: Normal: < 30 ug/mg creatinine Microalbuminuria: 30 - 300 ug/mg creatinine Clinical Albuminuria: > 300 ug/mg creatinine Hemoglobin A1c Reviewed date:10/30/2024 05:30:49 AM Interpretation: Performing Lab:[facility], [address], [place] [address] Notes/Report: Hemoglobin A1c % 7.5 <6.0 % Hemoglobin A1C Reference Range Adults: 4.8 - 6.0 % Non diabetic: < 6.0 % Goal: < 7.0 % Additional Action Suggested: > 8.0 % Note: Hemoglobin A1c results are invalid for patients with abnormal amounts of HbF. Blood transfusions may impact the HbA1c concentration in the patient sample. Estimated Average Glucose 169 eAG = Estimated average glucose which is %A1C expressed as average glucose, using the formula of the G0U-Umkbufm Average Glucose study (ADAG), Diabetes Care, Vol.31,#8, Jun. 2007 Reason For Referral Reason family history of sl eep apnea daytime somnolence excessive snoring evaluate and treat Diagnosis 1 Overweight (E66.3) Diagnosis 2 Type 2 diabetes shilo itus with complication, unspecified whether long-term insulin use (E11.8) Diagnosis 3 Daytime somnolence [...] Referral Priority Routine Referral Appointment Date 12/14/2024 Medications Medication SIG (Take, Route, Frequency, Duration) Notes Start Date End Date Status Atorvastatin Calcium 80 mg 1 Tablet Oral Once a day for 90 days Active Toprol XL 25 MG TAKE 1 TABLET TWICE A DAY Active hydroCHLOROthiazide 25 mg TAKE 1 TABLET DAILY. orally daily for 90 days Active CoQ10 200 MG 1 capsule with a amadeo l Orally Once a day Active Aspirin 81 81 MG 1 tablet Orally Once a day Active Trulicity 3 MG/0.5ML INJECT 1 PEN WEEKLY Active Metoprolol Succinate ER 25 mg TAKE 1 TAB LET TWICE A DAY Active Lantus SoloStar 100 UNIT/ML INJECT 36 UN ITS UNDER THE SKIN DAILY Active Symbicort 80-4.5 MCG/ACT 2 puffs Inhalat ion Twice a day Active Fluticasone-Salmeterol 45-21 MCG/ACT USE 2 INHALATIONS TWICE A DAY Active Januvia 100 MG 1 tablet Orally Once a day Active Lisinopril 40 mg TAKE 1 TABLET DAILY Active Jardiance 25 mg TAKE 1 TABLET DAILY Active Advair HFA 45-21 MCG/ACT USE 2 INHALATIO NS TWICE A DAY Active Sure Comfort Pen [place] 32G X 4 MM USE WITH INSULIN ONCE DAILY Active FreeStyle Lite Test - In Vitro Active Immunizations Vaccine Route Administration Date Status Comme nts Decline: Influenza Unknown 09/12/2021 Refused Social History Tobacco Use: Social History Observation Description Date Details (start date - stop date) Former Smoker NA - NA Sex Assigned At : Social History Observation Description Sex Assigned At Male Tobacco Use/Smoking Question Answer Notes Patient is a former smoker How long has it been since you last smoked? > 10 years Additional Findings: Tobacco Non-User Ex-cigaret te smoker Alcohol Screen Question Answer Notes Did you have a drink contain ing alcohol in the past year? Yes How often did you have a dri nk containing alcohol in the past year? 2 to 3 times a week (3 points) How many drinks did you have on a typical day when you were drinking in the past year? 1 or 2 drinks (0 point) How often did you have 6 or more drinks on one occasion in the past year? Never (0 point) Points 3 Interpretation Negative Problems Problem Type SNOMED Code ICD Code Onset Dates Problem Status W/U Status Risk Notes Problem 6308909 Former smoker (Z87.891) Active confirmed He is highly motivated not to smoke. We created a plan to prevent relapse in times of stress or illness. Problem [id number] Overweight (E66.3) Active confirmed He remains in the overweight range but has lost 3 pounds. We reviewed his weight loss strategy. We made a plan to lose weight at a rate of one half of a pound per week. Problem 762952966 Mixed hyperlipidemia (E78.2) Active confirmed His fasting lipid profile shows him to be N range. No change in his therapy was necessary today. I advised a healthy weight loss diabetic diet. Problem COPD - Chronic obstructive pulmonary disease (67874256) Chronic obstructive pulmonary disease, unspecified COPD type (J44.9) Active confirmed He is not smoking. He is breathing room air comfortably. He is only short of breath with prolonged exertion. He does not have a productive cough at this time. No change in his regimen was made. Problem 42878672 Essential hypertension (I10) Active confirmed His blood pressure is currently stable and in his target range. I recommended weight loss and sodium restriction but made no change in his medications. Problem 284362068 Primary osteoarthritis of both knees (M17.0) Active confirmed History knee pain has improved. His myelin at the end of the day. He is conducting all of the activities of daily life without impairment. Problem [id number] Coronary artery disease involving northway coronary artery of northway heart without angina pectoris (I25.10) Active confirmed His coronary artery disease is stable. His pain up-to-date with cardiology. No change in his regimen as needed today. Problem 147033728112 Daytime somnolence (R40.0) Active confirmed Problem Benign prostatic hypertrophy without outflow obstruction (453094440) Benign prostatic hyperplasia, unspecified whether lower urinary tract symptoms present (N40.0) Active confirmed He arises from sleep twice a night to urinate. We discussed ways to reduce this to lifestyle modifications . Problem Disorder due to type 2 diabetes mellitus (169307421) Type 2 diabetes mellitus with complication, unspecified whether long-term insulin use (E11.8) Active confirmed His hemoglobin A1c is 7.5. We reviewed his diabetic diet and his weight and his cardiac risk factors in detail today. Made a plan to lose weight. He will continue his attempt to consume a healthy diabetic diet. Problem 484386404 Adenomatous polyp (D36.9) Active confirmed I have recommended a colonoscopy every 5 years. Old records have been requested. 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 Vital Signs Heart Rate 76 /min 10/31/2024 A Temperature 98.8 degrees Fahrenheit 10/31/2024 A Blood pressure diastolic 69 mm Hg 10/31/2024 A Height 72 in 10/31/2024 A Blood pressure systolic 113 mm Hg 10/31/2024 A Weight 212 lbs 10/31/2024 A BMI 28.75 kg/m2 10/31/2024 A Encounters Encounter Location Date Provider Diagnosis Nabil Benitez III, MD [address] [place] [address] [address], [place] [phone] 04/07/2024 Nabil Benitez Benign prostatic hyperplasia, unspecified whether lower urinary tract symptoms present N40.0 ; Mixed hyperlipidemia E78.2 ; Type 2 diabetes mellitus with complication, unspecified whether termite treater insulin use E11.8 ; Former smoker Z87.891 ; Essential hypertension I10 ; Coronary artery disease involving northway coronary artery of northway heart without angina pectoris I25.10 ; Chronic obstructive pulmonary disease, unspecified COPD type J44.9 ; Overweight E66.3 and Adenomatous polyp D36.9 Nabil Benitez III, MD [address] [place] [address] [address] [place] [address] 07/11/2024 Nabil Benitez Mixed hyperlipidemia E78.2 ; Coronary artery disease involving northway coronary artery of northway heart without angina pectoris I25.10 ; Essential hypertension I10 ; Overweight E66.3 ; Type 2 diabetes mellitus with complication, unspecified whether long-term insulin use E11.8 and Former smoker Z87.891 Nabil Benitez III, MD [address] [place] [address] [address] [place] [address] 10/31/2024 Nabil Benitez Benign prostatic hyperplasia, unspecified whether lower urinary tract symptoms present N40.0 ; Type 2 diabetes mellitus with complication, unspecified whether termite treater insulin use E11.8 ; Mixed hyperlipidemia E78.2 ; Essential hypertension I10 ; Overweight E66.3 ; Former smoker Z87.891 and Primary osteoarthritis of both knees M17.0 Assessments Encounter Date Diagnosis (ICD Code) Assessment Notes Treat ment Notes Treatment Clinical Notes 04/07/2024 Mixed hyperlipidemia (ICD-10 - E78.2) 04/07/2024 Benign prostatic hyperplasia, unspecified whether lower urinary tract symptoms present (ICD-10 - N40.0) His prostatism is mild. We discussed lifestyle modification as a way to reduce nocturia. 07/11/2024 Mixed hyperlipidemia (ICD-10 - E78.2) The current fasting lipid profile shows excellent control of his lipids. We discussed weight reduction strategies today. No change in his medications was necessary. 07/11/2024 Coronary artery disease involving northway coronary artery of northway heart without angina pectoris (ICD-10 - I25.10) His coronary artery disease is stable. His pain up-to-date with cardiology. No change in his regimen as needed today. 10/31/2024 Benign prostatic hyperplasia, unspecified whether lower urinary tract symptoms present (ICD-10 - N40.0) He arises from sleep twice a night to urinate. We discussed ways to reduce this to lifestyle modifications. 10/31/2024 Type 2 diabetes mellitus with complication, unspecified whether termite treater insulin use (ICD-10 - E11.8) His hemoglobin A1c is 7.5. We reviewed his diabetic diet and his weight and his cardiac risk factors in detail today. Made a plan to lose weight. He will continue his attempt to consume a healthy diabetic diet. 04/07/2024 Type 2 diabetes mellitus with complication, unspecified whether termite treater insulin use (ICD-10 - E11.8) His hemoglobin A1c is 7.5. We discussed diet and nutrition and exercise. We discussed her weight loss strategy that would control this hyperglycemia. 07/11/2024 Essential hypertension (ICD-10 - I10) His blood pressure is currently well controlled and within normal limits. I recommended aggressive weight loss combined with sodium restriction. 10/31/2024 Mixed hyperlipidemia (ICD-10 - E78.2) His fasting lipid profile shows him to be N range. No change in his therapy was necessary today. I advised a healthy weight loss diabetic diet. 04/07/2024 Former smoker (ICD-1 0 - Z87.891) He is highly motivated not to smoke. We created a plan to prevent relapse in times of stress or illness. 07/11/2024 Overweight (ICD-10 - E66.3) HisHis body mass index is 29. We reviewed his diet and his nutrition. We made a plan to lose weight at a rate of one half of a pound per week through a diet restricted in fat calories and sodium combined with regular activity. 10/31/2024 Essential hypertension (ICD-10 - I10) His blood pressure is currently stable and in his target range. I recommended weight loss and sodium restriction but made no change in his medications. 04/07/2024 Essential hypertension (ICD-10 - I10) His blood pressure is currently stable At 115/77 and no change in his regimen is needed. I reinforced the need for sodium restriction and weight reduction. 07/11/2024 Type 2 diabetes mellitus with complication, unspecified whether long-term insulin use (ICD-10 - E11.8) His fasting glucose is 140 with a hemoglobin A1c of 7.8. This is slightly higher than in the past. We discussed weight reduction strategies, a diabetic diet, regular physical activity and to reduce calorie diet. I recommended aggressive weight loss. 10/31/2024 Overweight (ICD-10 - E66.3) He remains in the overweight range but has lost 3 pounds. We reviewed his weight loss strategy. We made a plan to lose weight at a rate of one half of a pound per week. 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 He reports that he had a good nuclear medicine perfusion test. Those records have been requested. 07/11/2024 Former smoker (ICD-1 0 - Z87.891) He is highly motivated not to smoke. We created a plan to prevent relapse in times of stress or illness. 10/31/2024 Former smoker (ICD-1 0 - Z87.891) He is highly motivated not to smoke. We created a plan to prevent relapse in times of stress or illness. 04/07/2024 Chronic obstructive pulmonary disease, unspecified COPD type (ICD-10 - J44.9) He is not smoking. He is breathing room air comfortably. He is only short of breath with prolonged exertion. He does not have a productive cough at this time. No change in his regimen was made. 10/31/2024 Primary osteoarthritis of both knees (ICD-10 - M17.0) History knee pain has improved. His myelin at the end of the day. He is conducting all of the activities of daily life without impairment. 04/07/2024 Overweight (ICD-10 - E66.3) His weight has been stableAt 213 pounds. His body mass index is 28. We discussed diet and nutrition. We reviewed his weight loss strategy today. 04/07/2024 Adenomatous polyp (ICD-10 - D36.9) I have recommended a colonoscopy every 5 years. Old records have been requested. 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 Plan Of Treatment Pending Test Test Name Order Date PROFILE, FASTING (COMPREHENSIVE METABOLI C) 02/16/2020 PROFILE, FASTING (COMPREHENSIVE METABOLI C) 10/31/2024 PROFILE, FASTING (COMPREHENSIVE METABOLI C) 08/18/2019 PROFILE, FASTING (COMPREHENSIVE METABOLI C) 01/14/2021 PROFILE, FASTING (COMPREHENSIVE METABOLI C) 11/16/2018 PROFILE, FASTING (COMPREHENSIVE METABOLI C) 01/11/2024 PROFILE, FASTING (COMPREHENSIVE METABOLI C) 08/15/2018 PROFILE, FASTING (COMPREHENSIVE METABOLI C) 09/08/2023 PROFILE, FASTING (COMPREHENSIVE METABOLI C) 04/07/2024 PROFILE, FASTING (COMPREHENSIVE METABOLI C) 10/26/2022 PROFILE, FASTING (COMPREHENSIVE METABOLI C) 04/02/2023 PROFILE, FASTING (COMPREHENSIVE METABOLI C) 02/27/2022 PROFILE, FASTING (COMPREHENSIVE METABOLI C) 09/20/2020 PROFILE, FASTING (COMPREHENSIVE METABOLI C) 12/16/2021 PROFILE, FASTING (COMPREHENSIVE METABOLI C) 06/22/2022 PROFILE, FASTING (COMPREHENSIVE METABOLI C) 05/14/2021 PROFILE, FASTING (COMPREHENSIVE METABOLI C) 06/21/2020 PROFILE, FASTING (COMPREHENSIVE METABOLI C) 09/12/2021 HEMOGLOBIN A1C (GLYCOHEMOGLOBIN) 020 HEMOGLOBIN A1C (GLYCOHEMOGLOBIN) 018 HEMOGLOBIN A1C (GLYCOHEMOGLOBIN) 018 HEMOGLOBIN A1C (GLYCOHEMOGLOBIN) 023 HEMOGLOBIN A1C (GLYCOHEMOGLOBIN) 022 HEMOGLOBIN A1C (GLYCOHEMOGLOBIN) 022 HEMOGLOBIN A1C (GLYCOHEMOGLOBIN) 022 LIPID PANEL 04/02/2023 LIPID PANEL 06/22/2022 LIPID PANEL 06/21/2020 LIPID PANEL 02/16/2020 LIPID PANEL 08/18/2019 LIPID PANEL 01/14/2021 LIPID PANEL 11/16/2018 LIPID PANEL 08/15/2018 LIPID PANEL 09/20/2020 PSA, TOTAL 02/27/2022 PSA, TOTAL 05/14/2021 PSA, TOTAL 10/31/2024 PSA, TOTAL 01/11/2024 PSA, TOTAL 02/16/2020 PSA, TOTAL 08/18/2019 PSA, TOTAL 10/26/2022 PSA, TOTAL 08/15/2018 MICROALBUMIN, RANDOM 12/16/2021 MICROALBUMIN, RANDOM 02/27/2022 MICROALBUMIN, RANDOM 10/31/2024 MICROALBUMIN, RANDOM 08/18/2019 MICROALBUMIN, RANDOM 11/16/2018 CBC w DIFF 08/18/2019 CBC w DIFF 11/16/2018 CBC w DIFF 09/20/2020 CBC w DIFF 08/15/2018 CBC w DIFF 09/12/2021 CBC w DIFF 04/02/2023 CBC w DIFF 05/14/2021 CBC w DIFF 12/16/2021 CBC w DIFF 06/22/2022 CBC w DIFF 02/27/2022 CBC w DIFF 06/21/2020 CBC w DIFF 01/14/2021 CBC w DIFF 10/31/2024 CBC w DIFF 02/16/2020 CBC w DIFF 10/26/2022 CBC WITH AUTO DIFF 09/08/2023 CBC WITH AUTO DIFF 04/07/2024 CBC WITH AUTO DIFF 01/11/2024 Lipid Panel 10/26/2022 Lipid Panel 09/12/2021 Lipid Panel 05/14/2021 Lipid Panel 12/16/2021 Lipid Panel 02/27/2022 Lipid Panel 09/08/2023 Lipid Panel 04/07/2024 Lipid Panel 01/11/2024 Lipid Panel 10/31/2024 Microalbumin, Random 01/11/2024 Microalbumin, Random 10/26/2022 Microalbumin, Random 09/12/2021 Microalbumin, Random 05/14/2021 Microalbumin, Random 04/07/2024 Microalbumin, Random 09/08/2023 Hemoglobin A1c 04/07/2024 Hemoglobin A1c 10/31/2024 Hemoglobin A1c 09/08/2023 Hemoglobin A1c 01/11/2024 Hemoglobin A1c 10/26/2022 Hemoglobin A1c 05/14/2021 Next Appt Details Provider Name:Nabil Eli, 04/10/2025 03:00:00 PM, [address] [place] [address] [address] [facility] [address], [place], [address], Insurance Providers Payer Name Payer Address Payer Phone Subscriber Number Group Number Insured Name Patient Relationship to Insured Coverage Start Date Coverage End Date MEDICARE NGS [address] [place] [phone] [id number] Jose Armando Foster Self - patient is the insured /[employer] [address] [place] [address] [id number] Jose Armando Foster Self - patient is the insured Medical (General) History Medical History History ICD Code osteoarthritis of both knees adult-onset diabetes mellitus COPD coronary artery disease, myocardial infa rction September 2010 hyperlipidemia tubular adenomas, 2009, 11/28/2018 former smoker essential hypertension obesity allergy to metformin hyposmia April 2014 Surgical History Surgery Date(Month/Year) colonoscopy, Dr. High, one tubular ad enoma 11/2018 colonoscopy, tubular adenomas 2009 vasectomy 05/1983
--- OUTSIDE RECORDS SUMMARY | 2025-03-08 11:47 | XMS_ITS ---
Author Organization Nabil Benitez III, MD Address [address] [place] [address] Care Team Providers Care Windows Consultant Name Role Phone Nabil Benitez Primary Care [...] 0.2 - 1.3 BLD Negative Negative - REASON FOR VISIT annual exam Medications Medication SIG (Take, Route, Frequency, Duration) Notes Start Date End Date Status Lantus SoloStar 100 UNIT/ML Subcutaneous Active CoQ10 200 MG 1 capsule with a amadeo l Orally Once a day Active Symbicort 80-4.5 MCG/ACT 2 puffs Inhalat ion Twice a day Active Januvia 100 MG 1 tablet Orally Once a day Active Advair HFA 45-21 MCG/ACT USE 2 INHALATIO NS TWICE A DAY Active Atorvastatin Calcium 80 mg TAKE 1 TABLET DAILY Active Metoprolol Succinate ER 25 mg TAKE 1 TAB LET TWICE A DAY Active Aspirin 81 81 MG 1 tablet Orally Once a day Active Toprol XL 25 MG TAKE 1 TABLET TWICE A DAY Active hydroCHLOROthiazide 25 mg TAKE 1 TABLET DAILY IN THE MORNING Active Lisinopril 40 mg TAKE 1 TABLET DAILY Active Trulicity 3 MG/0.5ML INJECT 1 PEN WEEKLY Active Jardiance 25 MG 1 tablet Orally Once a day 06/11/2023 Active FreeStyle Lite Test - In Vitro Active Sure Comfort Pen Jolo 32G X 4 MM Active Social History Tobacco Use: Social History [...] Never (0 point) Points 3 Interpretation Negative Vital Signs Temperature 98.6 degrees Fahrenheit 04/07/20 24 Blood pressure systolic 115 mm Hg 04/07/20 24 Blood pressure diastolic 77 mm Hg 024 Heart Rate 68 /min 04/07/2024 Height 72 in 04/07/2024 Weight 213 lbs 04/07/2024 BMI 28.88 kg/m2 04/07/2024 Encounters Encounter Location Date Provider Diagnosis Nabil Benitez III, MD [address] [place] [address] [place] [address] 04/07/2024 Nabil Benitez Benign prostatic hyperplasia, unspecified whether lower urinary tract symptoms present N40.0 ; Mixed hyperlipidemia E78.2 ; Type 2 diabetes mellitus with complication, unspecified whether terminal supervisor insulin use E11.8 ; Former smoker Z87.891 ; Essential hypertension I10 ; Coronary artery disease involving southern ute coronary artery of southern ute heart without angina pectoris I25.10 ; Chronic obstructive pulmonary disease, unspecified COPD type J44.9 ; Overweight E66.3 and Adenomatous polyp D36.9 Assessments Encounter Date Diagnosis (ICD Code) Assessment Notes Treat ment Notes Treatment Clinical Notes 04/07/2024 Benign prostatic hyperplasia, unspecified whether lower urinary tract symptoms present (ICD-10 - N40.0) His prostatism is mild. We discussed lifestyle modification as a way to reduce nocturia. 04/07/2024 Mixed hyperlipidemia (ICD-10 - E78.2) 04/07/2024 Type 2 diabetes mellitus with complication, unspecified whether correction insulin use (ICD-10 - E11.8) His hemoglobin A1c is 7.5. We discussed diet and nutrition and exercise. We discussed her weight loss strategy that would control this hyperglycemia. 04/07/2024 Former smoker (ICD-1 0 - Z87.891) He is highly motivated not to smoke. We created a plan to prevent relapse in times of stress or illness. 04/07/2024 Essential hypertension (ICD-10 - I10) His blood pressure is currently stable At 115/77 and no change in his regimen is needed. I reinforced the need for sodium restriction and weight reduction. 04/07/2024 Coronary artery disease involving southern ute coronary artery of southern ute heart without angina pectoris (ICD-10 - I25.10) He has been free of cardiac symptoms since his last visit and recently saw his transverse abdominal muscle nurse. He reports that he had a good nuclear medicine perfusion test. Those records have been requested. 04/07/2024 Chronic obstructive pulmonary disease, unspecified COPD type (ICD-10 - J44.9) He is not smoking. He is breathing room air comfortably. He is only short of breath with prolonged exertion. He does not have a productive cough at this time. No change in his regimen was made. 04/07/2024 Overweight (ICD-10 - E66.3) His weight has been stableAt 213 pounds. His body mass index is 28. We discussed diet and nutrition. We reviewed his weight loss strategy today. 04/07/2024 Adenomatous polyp (ICD-10 - D36.9) I have recommended a colonoscopy every 5 years. Old records have been requested. 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 Plan Of Treatment Medication Medication Name Sig Start Date Stop Date Notes Lantus SoloStar 100 UNIT/ML Subcutaneous CoQ10 200 MG 1 capsule with a aamdeo l Orally Once a day Symbicort 80-4.5 MCG/ACT 2 puffs Inhalat ion Twice a day Januvia 100 MG 1 tablet Orally Once a day Advair HFA 45-21 MCG/ACT USE 2 INHALATIO NS TWICE A DAY Atorvastatin Calcium 80 mg TAKE 1 TABLET DAILY Metoprolol Succinate ER 25 mg TAKE 1 TABLET TWICE A DAY Aspirin 81 81 MG 1 tablet Orally Once a day Toprol XL 25 MG TAKE 1 TABLET TWICE A DAY hydroCHLOROthiazide 25 mg TAKE 1 TABLET DAILY IN THE MORNING Lisinopril 40 mg TAKE 1 TABLET DAILY Trulicity 3 MG/0.5ML INJECT 1 PEN WEEKLY Jardiance 25 MG 1 tablet Orally Once a day 06/11/2023 FreeStyle Lite Test - In Vitro Sure Comfort Pen Jolo 32G X 4 MM Pending Test Test Name Order Date PROFILE, FASTING (COMPREHENSIVE METABOLI C) 04/07/2024 CBC WITH AUTO DIFF 04/07/2024 Lipid Panel 04/07/2024 Microalbumin, Random 04/07/2024 Hemoglobin A1c 04/07/2024 Next Appt Details Follow Up: 3 Months, Reason: OV Provider Name:Nabil Benitez, 04/10/2025 03:00:00 PM, [address] [place] [address] , [place] [address], [place], [address], Progress Notes * Jose Armando MESSINADOB: [birth year] (73 yo M)Acc No.[id number]:04/07/2024 Progress Notes Patient:?Jose Armando Messina Provider:?Nabil Benitez MD :1950???Age:73 Y???Sex:Male Jenaro e:04/07/2024 Address:[address] [place], [place] [id number] Subjective: * Chief Complaints: * ???Annual exam * HPI: ???Depression Screening:? He returns to the office at the age of 73 for his annual physical examination.He says he gets up from sleep twice a night to urinate. Today as in the past we have discussed lifestyle modification. He says he would rather drink fluids after dinner and sleeping through the night. His breathing is described as not too bad. He has had no angina. He continues to have bilateral knee pain which is mild to moderate. His hemoglobin A1c was 7.5. He continues his efforts at weight loss. ?PHQ-9?Little interest or pleasure in doing things?Not at all ?Feeling down, depressed, or hopeless?Not at all ?Trouble falling or staying asleep, or sleeping too much?Several days ?Feeling tired or having little energy?Several days ?Poor appetite or overeating?Not at all ?Feeling bad about yourself or that you are a failure, or have let yourself or your family down?Not at all ?Trouble concentrating on things, such as reading the newspaper or watching television?Not at all ?Moving or speaking so slowly that other people could have noticed; or the opposite, being so fidgety or restless that you have been moving around a lot more than usual?Not at all ?Thoughts that you would be better off or of hurting yourself in some way?Not at all ?Total Score?2 ?Interpretation?Minimal Depression ???COVID-19 Screening:?Questions?Have you experienced fever, chills, cough, sore throat, shortness of breath, difficulty breathing, muscle aches, loss of taste or smell??No ?Have you been exposed to the virus within the last 10 days??No ?Have you travelled internationally in the last 10 days??No ?Have you been exposed to COVID-19 in the past??Yes ???SDOH Questions:?SDOH Questions?In the past year have you been worried about losing your housing??No ?In the past year have you or any family members you live with been unable to get any of the following when it was really needed? Check all that apply:?None * ROS:?General/Constitutional:?pain?Both knees, otherwise only normal aches and pains.?Chills?denies.?Fatigue?admits.?Fever?denies.?ENT:?Decreased hearing?denies.?Respiratory:?Cough?denies.?Cardiovascular:?Chest pain with exertion?relieved with nitroglycerine.?Dyspnea on exertion?with prolonged activity.?Shortness of breath?that is mild.?Gastrointestinal:?Constipation?occasional.?Decreased appetite?denies.?Diarrhea?denies.?Heartburn?denies.?Nausea?denies.?Rectal bleeding?denies.?Vomiting?denies.?Hematology:?bruising?denies.?petechiae?denies.?Swollen glands?none have been noted.?Genitourinary:?Frequent urination?once [...] 10 years ?Additional Findings: Tobacco Non-User?Ex-cigarette smoker ???Drugs/Alcohol:?Drugs?Have you used drugs other than those for medical reasons in the past 12 months??No ?Alcohol Screen?Did you have a drink containing alcohol in the past year??Yes ?How often did you have a drink containing alcohol in the past year??2 to 3 times a week (3 points) ?How many drinks did you have on a typical day when you were drinking in the past year??1 or 2 drinks (0 point) ?How often did you have 6 or more drinks on one occasion in the past year??Never (0 point) ?Points?3 ?Interpretation?Negative ???He stopped smoking 20 years ago. 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 A daughter of a drug overdose. A son is alive with anxiety. He is retired. He has been to [employer] for many years. * Medications:?TakingAtorvasta tin Calcium 80 mg Tablet TAKE 1 TABLET DAILY hydroCHLOROthiazide 25 mg Tablet TAKE 1 TABLET DAILY IN THE MORNING Toprol XL 25 MG Tablet Extended Release 24 Hour TAKE 1 TABLET TWICE A DAY Aspirin 81 81 MG Tablet Chewable 1 tablet Orally Once a rprTcI48 200 MG Capsule 1 capsule with a meal Orally Once a dayJanuvia 100 MG Tablet 1 tablet Orally Once a daySymbicort 80-4.5 MCG/ACT Aerosol 2 puffs Inhalation Twice a dayAdvair HFA 45-21 MCG/ACT Aerosol USE 2 INHALATIONS TWICE A DAY Lantus SoloStar 100 UNIT/ML Solution Pen-injector Subcutaneous Sure Comfort Pen Jolo 32G X 4 MM Miscellaneous FreeStyle Lite Test - Strip In Vitro Lisinopril 40 mg Tablet TAKE 1 TABLET DAILY Jardiance 25 MG Tablet 1 tablet Orally Once a dayMetoprolol Succinate ER 25 mg Tablet Extended Release 24 Hour TAKE 1 TABLET TWICE A DAY Trulicity 3 MG/0.5ML Solution Pen-injector INJECT 1 PEN WEEKLY Taking Atorvastatin Calcium 80 mg Tablet TAKE [...] Solution Pen-injector Subcutaneous Taking Sure Comfort Pen Jolo 32G X 4 MM Miscellaneous Taking FreeStyle Lite Test - Strip In Vitro Taking Lisinopril 40 mg Tablet TAKE 1 TABLET DAILY Taking Jardiance 25 MG Tablet 1 tablet Orally Once a dayTaking Metoprolol Succinate ER 25 mg Tablet Extended Release 24 Hour TAKE 1 TABLET TWICE A DAY Taking Trulicity 3 MG/0.5ML Solution Pen-injector INJECT 1 PEN WEEKLY DiscontinuedMetoprolol Succinate ER 25 mg Tablet Extended Release 24 Hour TAKE 1 TABLET TWICE A DAY Trulicity 3 MG/0.5ML Solution Pen-injector as directed Subcutaneous 1 time a weekMedication List reviewed and reconciled with the patientDiscontinued Metoprolol Succinate ER 25 mg Tablet Extended Release 24 Hour TAKE 1 TABLET TWICE A DAY Discontinued Trulicity 3 MG/0.5ML Solution Pen- injector as directed Subcutaneous 1 time a weekMedication List reviewed and reconciled with the patient * Allergies:?Metformin HClCat DanderDust Mitesno[Allergies Verified] Objective: * Vitals:?Ht: 72, Wt:213, BMI: 28.88, BP:115/77, HR:68, Temp:98.6, Wt-k.62. * ???Past Orders: Lab:Lipid Panel * Order Date 03/28/2024 08/31/2023 03/29/2023 Triglycerides 126 (Ref Range: <150 mg/dL) 123 (Ref Range: <150 mg/dL) 102 (Ref Range: mg/dL) Cholesterol 123 (Ref Range: <200 mg/dL) 118 (Ref Range: <200 mg/dL) 128 (Ref Range: mg/dL) LDL Cholesterol Calculated 63 (Ref Range: <100 mg/dL) 61 (Ref Range: <100 mg/dL) 75 (Ref Range: mg/dl) HDL Cholesterol 35?L (Ref Range: >40 mg/dL) 33?L (Ref Range: >40 mg/dL) 33 (Ref Range: mg/dL) * Lab:Comprehensive [place]. [facility] Fast * Order Date 03/28/2024 08/31/2023 03/29/2023 Sodium 139 (Ref Range: 135-145 mmol/L) 138 (Ref Range: 135-145 mmol/L) 138 (Ref Range: 135-145 mmol/L) Bilirubin Total 1.6?H (Ref Range: 0.0-1.0 mg/dL) 1.4?H (Ref Range: 0.0-1.0 mg/dL) 2.2?H (Ref Range: 0.0-1.0 mg/dL) Aspartate Amino Transferase 28 (Ref Range: 5-37 U/L) 27 (Ref Range: 5-37 U/L) 31 (Ref Range: 5-37 U/L) Alanine Aminotransferase 37 (Ref Range: 0-40 U/L) 29 (Ref Range: 0-40 U/L) 39 (Ref Range: 0-40 U/L) Total Protein 7.2 (Ref Range: 6.5-8.0 g/dL) 7.4 (Ref Range: 6.5-8.0 g/dL) 6.9 (Ref Range: 6.5-8.0 g/dL) Albumin Level 4.4 (Ref Range: 3.5-5.0 g/dL) 4.5 (Ref Range: 3.5-5.0 g/dL) 4.5 (Ref Range: 3.5-5.0 g/dL) Alkaline Phosphatase 81 (Ref Range: 39-117 U/L) 88 (Ref Range: 39-117 U/L) 86 (Ref Range: 39-117 U/L) Potassium 3.5 (Ref Range: 3.3-5.1 mmol/L) 4.1 (Ref Range: 3.3-5.1 mmol/L) 4.6 (Ref Range: 3.3-5.1 mmol/L) Chloride 102 (Ref Range: 96-108 mmol/L) 101 (Ref Range: 96-108 mmol/L) 103 (Ref Range: 96-108 mmol/L) Carbon Dioxide 27 (Ref Range: 22-29 mmol/L) 27 (Ref Range: 22-29 mmol/L) 28 (Ref Range: 22-29 mmol/L) Anion Gap 14 (Ref Range: 12-20) 14 (Ref Range: 12-20) 12 (Ref Range: 12-20) Blood Urea Nitrogen 18?H (Ref Range: 9-16 mg/dL) 20?H (Ref Range: 9-16 mg/dL) 23?H (Ref Range: 9-16 mg/dL) Creatinine 0.96 (Ref Range: 0.5-1.4 mg/dL) 0.95 (Ref Range: 0.5-1.4 mg/dL) 1.19 (Ref Range: 0.5-1.4 mg/dL) Estimated Glomerular Filt Rate > 60 > 60 > 60 Glucose Fasting 145?H (Ref Range: 60-99 mg/dL) 168?H (Ref Range: 60-99 mg/dL) 145?H (Ref Range: 60-99 mg/dL) Calcium 10.0 (Ref Range: 8.4-10.2 mg/dL) 9.9 (Ref Range: 8.4-10.2 mg/dL) 9.9 (Ref Range: 8.4-10.2 mg/dL) * Lab:Complete Blood Count Aut o Diff * Order Date 03/28/2024 08/31/2023 03/29/2023 White Blood Count 7.9 (Ref Range: 4.8-10.8 X10*3/uL) 8.3 (Ref Range: 4.8-10.8 X10*3/uL) 8.1 (Ref Range: 4.8-10.8 X10*3/uL) Red Blood Count 5.56 (Ref Range: 4.60-5.80 X10*6/uL) 5.73 (Ref Range: 4.60-5.80 X10*6/uL) 5.77 (Ref Range: 4.60-5.80 X10*6/uL) Hemoglobin 17.0 (Ref Range: 14.0-18.0 g/dl) 17.1 (Ref Range: 14.0-18.0 g/dl) 17.1 (Ref Range: 14.0-18.0 g/dl) Hematocrit 49.5 (Ref Range: 42.0-52.0 %) 51.9 (Ref Range: 42.0-52.0 %) 51.1 (Ref Range: 42.0-52.0 %) Mean Corpuscular Volume 89.0 (Ref Range: 80.0-98.0 fL) 90.6 (Ref Range: 80.0-98.0 fL) 88.6 (Ref Range: 80.0-98.0 fL) Mean Corpuscular Hemoglobin 30.6 (Ref Range: 27.0-33.0 pg) 29.8 (Ref Range: 27.0-33.0 pg) 29.6 (Ref Range: 27.0-33.0 pg) Mean Corpuscular HGB Conc 34.3 (Ref Range: 31.0-36.0 g/dl) 32.9 (Ref Range: 31.0-36.0 g/dl) 33.5 (Ref Range: 31.0-36.0 g/dl) Red Cell Distribution Width 13.3 (Ref Range: 11.0-16.0 %) 13.5 (Ref Range: 11.0-16.0 %) 13.3 (Ref Range: 11.0-16.0 %) Platelet Count 152?L (Ref Range: 160-400 X10*3/uL) 173 (Ref Range: 160-400 X10*3/uL) 173 (Ref Range: 160-400 X10*3/uL) Mean Platelet Volume 9.8 (Ref Range: 9.4-12.4 fL) 9.9 (Ref Range: 9.4-12.4 fL) 9.6 (Ref Range: 9.4-12.4 fL) Neutrophils Percent Auto 60.7 (Ref Range: 45-73 %) 57.4 (Ref Range: 45-73 %) 58.9 (Ref Range: 45-73 %) Imm Gran Pct Auto 0.3 (Ref Range: 0.0-0.4 %) 0.4 (Ref Range: 0.0-0.4 %) 0.4 (Ref Range: 0.0-0.4 %) Lymphocytes Percent Auto 24.4 (Ref Range: 20-40 %) 27.4 (Ref Range: 20-40 %) 25.7 (Ref Range: 20-40 %) Monocytes Percent Auto 7.3 (Ref Range: 2-11 %) 7.9 (Ref Range: 2-11 %) 8.2 (Ref Range: 2-11 %) Eosinophils Percent Auto 6.8?H (Ref Range: 0-4 %) 6.3?H (Ref Range: 0-4 %) 6.1?H (Ref Range: 0-4 %) Basophils Percent Auto 0.5 (Ref Range: 0-2 %) 0.6 (Ref Range: 0-2 %) 0.7 (Ref Range: 0-2 %) NRBC Pct Auto 0.0 (Ref Range: 0.0-0.2 /100WBC) 0.0 (Ref Range: 0.0-0.2 /100WBC) 0.0 (Ref Range: 0.0-0.2 /100WBC) Neutrophils Absolute Auto 4.8 (Ref Range: 2.0-8.3 x10*3/uL) 4.8 (Ref Range: 2.0-8.3 x10*3/uL) 4.7 (Ref Range: 2.0-8.3 x10*3/uL) Imm Gran Abs Auto 0.02 (Ref Range: 0.00-0.03 X10*3/uL) 0.03 (Ref Range: 0.00-0.03 X10*3/uL) 0.03 (Ref Range: 0.00-0.03 X10*3/uL) Lymphocytes Absolute Auto 1.9 (Ref Range: 1.2-4.9 X10*3/uL) 2.3 (Ref Range: 1.2-4.9 X10*3/uL) 2.1 (Ref Range: 1.2-4.9 X10*3/uL) Monocytes Absolute Auto 0.6 (Ref Range: 0.1-1.2 X10*3/uL) 0.7 (Ref Range: 0.1-1.2 X10*3/uL) 0.7 (Ref Range: 0.1-1.2 X10*3/uL) Eosinophils Absolute Auto 0.5?H (Ref Range: 0.0-0.4 X10*3/uL) 0.5?H (Ref Range: 0.0-0.4 X10*3/uL) 0.5?H (Ref Range: 0.0-0.4 X10*3/uL) Basophils Absolute Auto 0.0 (Ref Range: 0.0-0.2 X10*3/uL) 0.1 (Ref Range: 0.0-0.2 X10*3/uL) 0.1 (Ref Range: 0.0-0.2 X10*3/uL) NRBC Abs Auto 0.000 (Ref Range: 0.0-0.012 X10*3/uL) 0.000 (Ref Range: 0.0-0.012 X10*3/uL) 0.000 (Ref Range: 0.0-0.012 X10*3/uL) * Lab:Microalbumin, Random * Order Date 03/28/2024 03/29/2023 06/17/2022 Creatinine Urine 92.69 (Ref Range: mg/dL) 100.94 (Ref Range: mg/dL) 125.53 (Ref Range: mg/dL) Microalbumin Urine 17.0 (Ref Range: mg/L) 10.0 (Ref Range: mg/L) 9.0 (Ref Range: mg/L) Microalbum Creatinine Ratio Ur 18.3 (Ref Range: <30 ug/mg cr) 9.9 (Ref Range: ug/mg cr) 7.1 (Ref Range: ug/mg cr) * Lab:Hemoglobin A1c * Order Date 03/28/2024 08/31/2023 03/29/2023 Hemoglobin A1c % 7.5?H (Ref Range: <6.0 %) 7.2?H (Ref Range: <6.0 %) 7.4 (Ref Range: %) Estimated Average Glucose 169 (Ref Range: mg/dL) 160 (Ref Range: mg/dL) 166 (Ref Range: mg/dL) * Lab:Prostate Specific Antige n * Order Date 03/28/2024 03/29/2023 06/17/2022 Prostate Specific Antigen 2.63 (Ref Range: <0.05-4.0 ng/mL) 2.85 (Ref Range: <0.05-4.0 ng/mL) 2.66 (Ref Range: <0.05-4.0 ng/mL) * Imaging:SCREENING COLONOSCOP Y * Order Date 03/20/2024 11/28/2018 Result: undefined * Examination: ???General Examination: ?GENERAL APPEARANCE:?pleasant, well nourished, well developed, in no acute distress, calm and relaxed , overweight , man.?HEAD:?atraumatic, normocephalic.?EYES:?eomi, perrla, anicteric, conjugate.?EARS:?normal.?NOSE:?septum intact.?ORAL CAVITY:?normal, unremarkable.?NECK/THYROID:?no jugular venous distention, no carotid bruit, thyroid normal.?LYMPH NODES:?no enlarged lymph nodes,spleen normal.?SKIN:?no suspicious lesions, anicteric.?HEART:?no clicks, gallops, murmurs, or rubs, regular rhythm, S1, S2 normal, no s3, or vascular bruits.?LUNGS:?diminished breath sounds throughout , no wheezes, rales, rhonchi , good air movement.?BREASTS:??no masses palpable bilaterally.?ABDOMEN:?bowel sounds normal, no ascites, no organomegaly, no mass , overweight.?RECTAL EXAM:?, normal tone , no external hemorrhoids , no masses palpable , no melena , no red blood , prostate enlarged , stool guaiac negative.?MUSCULOSKELETAL:?Range of motion both knees painful but within normal limits.?PERIPHERAL PULSES:?normal.?NEUROLOGIC:?alert and oriented, cranial nerves 2-12 grossly intact, deep tendon reflexes 2+ symmetrical, motor strength normal upper and lower extremities, sensory exam intact.?PSYCH:?alert, oriented , thought process logical, goal directed , speech clear , good eye contact , cooperative with exam , cognitive function intact.? Assessment: * Assessment: 1.?Benign prostatic hyperpla gurpreet, unspecified whether lower urinary tract symptoms present - N40.0, His prostatism is mild. We discussed lifestyle modification as a way to reduce nocturia.?2.?Mixed hyperlipidemia - E78.2?3.?Type 2 diabetes mellitus with complication, unspecified whether terminal supervisor insulin use - E11.8, His hemoglobin A1c is 7.5. We discussed diet and nutrition and exercise. We discussed her weight loss strategy that would control this hyperglycemia.?4.?Former smoker - Z87.891, He is highly motivated not to smoke. We created a plan to prevent relapse in times of stress or illness.?5.?Essential hypertension - I10, His blood pressure is currently stable At 115/77 and no change in his regimen is needed. I reinforced the need for sodium restriction and weight reduction.?6.?Coronary artery disease involving southern ute coronary artery of southern ute heart without angina pectoris - I25.10, He has been free of cardiac symptoms since his last visit and recently saw his transverse abdominal muscle nurse. He reports that he had a good nuclear medicine perfusion test. Those records have been requested.?7.?Chronic obstructive pulmonary disease, unspecified COPD type - J44.9, He is not smoking. He is breathing room air comfortably. He is only short of breath with prolonged exertion. He does not have a productive cough at this time. No change in his regimen was made.?8.?Overweight - E66.3, His weight has been stableAt 213 pounds. His body mass index is 28. We discussed diet and nutrition. We reviewed his weight loss strategy today.?9.?Adenomatous polyp - D36.9, I have recommended a colonoscopy every 5 years. Old records have been requested. He is due for a colonoscopy.? Plan: * Treatment: 2.?Mixed hyperlipidemia?LAB: PROFILE, FASTING (COMPREHENSIVE METABOLIC) ?LAB: CBC WITH AUTO DIFF ?LAB: Lipid Panel ?LAB: Microalbumin, Random ?LAB: Hemoglobin A1c 3.?Type 2 diabetes mellitus with complication, unspecified whether terminal supervisor insulin use?LAB: PROFILE, FASTING (COMPREHENSIVE METABOLIC) ?LAB: CBC WITH AUTO DIFF ?LAB: Lipid Panel ?LAB: Microalbumin, Random ?LAB: Hemoglobin A1c 4.?Others? Continue Trulicity Solution Pen-injector, 3 MG/0.5ML, INJECT 1 [...] Pen-injector, 100 UNIT/ML, Subcutaneous;?Continue Sure Comfort Pen Jolo Miscellaneous, 32G X 4 MM;?Continue FreeStyle Lite Test Strip, -, In Vitro;?Continue Lisinopril Tablet, 40 mg, TAKE 1 TABLET DAILY;?Continue Jardiance Tablet, 25 MG, 1 tablet, Orally, Once a day.?? * Labs:? * ?Lab: URINE DIP STICK ? Value Reference Range ?SG 1.020 1.005 - 1.025 * ?pH 5.0 5.0 - 9.0 * ?BRETT Negative Negative - * ?NIT Negative Negative - * ?PRO 15 Negative - Trac e * ?GLU 1000 Negative - * ?KET Negative Negative - * ?UBG 0.2 0.1 - 1.8 * ?CHANDLER Negative 0.2 - 1.3 * ?BLD Negative Negative - * Procedure Codes:?91667 URINE -NO MICRO * Preventive Medicine:? ??Counseling:?Care goal follow-up plan:?Counseling [...] dangers of tobacco use and urged to quit.?04/07/2024 ??DM Care Plan:?Patient Lifestyle Goals?Patient wants to be able to manage diabetes without too much effort.?Treatment Goals?HbA1C < 7.0, Blood Sugars less than < 115.?Barriers?no barriers.?Self-Managment Goals?Work on weight loss, with a goal of losing 1 lb per week.? ??COPD Care Plan:?Patient Lifestyle Goals?Be able to be more active with friends and family, Reduce number of ED and hospitalizations, Relieve symptoms and improve quality of life.?Treatment Goals?Exercise to help whole body, including lungs, Eat a nutritious diet and increase water consumption to 6-8 glasses a day.?Barriers?no barriers.?Self-Managment Goals?Exercise at least 3xs per week for at least 30 mins, Eat a healthy diet, Get an air purifier for the rooms you are in the most.? * Follow Up:?3 Months (Reason: OV) * Images: * Sign off status: Completed true * Provider:?Nabil Benitez MD Date:?03/22 Generated for Blaine dowell/Elder/Chastityransmitting on:?03/08/2025 11:46 AM EDT History and Physical Notes * HPI (History of Present Illness) Category Sub-Category Detail Notes Depression Screening PHQ-9 Little inte rest or pleasure in doing things: Not at all Feeling down, depressed, or hopeless: No t at all Trouble falling or staying asleep, or sl eeping too much: Several days Feeling tired or having little energy: S everal days Poor appetite or overeating: Not at all Feeling bad about yourself o r that you are a failure, or have let yourself or your family down: Not at all Trouble concentrating on thi ngs, such as reading the newspaper or watching television: Not at all Moving or speaking so slowly that other people could have noticed; or the opposite, being so fidgety or restless that you have been moving around a lot more than usual: Not at all Thoughts that you would be b yenifer off or of hurting yourself in some way: Not at all Total Score: 2 Interpretation: Minimal Depression COVID-19 Screening Questions Have you had any new onset fever, chills, cough, congestion, sore throat, shortness of breath, muscle aches?: No Have you been exposed to the virus withi n the last 10 days?: No Have you travelled internationally in last 10 days?: No Have you been exposed to COVID-19 in the past?: Yes SDOH Questions SDOH Questions In the past year have you been worried about losing your housing?: No In the past year have you or any family members you live with been unable to get any of the following when it was really needed? Check all that apply:: None Examination Category Sub-Category Detail Notes General Examination [...] normal, no s3, or vascular bruits LUNGS: diminished breath so unds throughout , no wheezes, rales, rhonchi , good air movement ABDOMEN: bowel sounds normal, no ascites, no organomegaly, no mass , overweight NEUROLOGIC: alert and oriented, cranial nerves 2-12 grossly intact, deep tendon reflexes 2+ symmetrical, motor strength normal upper and lower extremities, sensory exam intact SKIN: no suspicious lesion s, anicteric PERIPHERAL PULSES: normal BREASTS: no masses palpable b ilaterally MUSCULOSKELETAL: Range of motion both knees painful but within normal limits LYMPH NODES: no enlarged lymph no eleno,spleen normal RECTAL EXAM: , normal tone , no e xternal hemorrhoids , no masses palpable , no melena , no red blood , prostate enlarged , stool guaiac negative PSYCH: alert, oriented , th ought process logical, goal directed , speech clear , good eye contact , cooperative with exam , cognitive function intact ORAL CAVITY: normal, unremarkable
== END ==
LOC: HO.SL 10:01
PROVIDERS: PCP Family Medicine; Visit Provider Internal Medicine Pulmonary Disease
DX: G47.33 Obstructive sleep apnea (adult) (pediatric) (principal)
CPT/HCPCS: 95806

== ENCOUNTER → 2025-03-11 10:50 | Outpatient (BNV) | payer MEDICARE, OTHER, SELFPAY | PROVIDERS: PCP Family Medicine; Visit Provider Internal Medicine | DX: G47.33 Obstructive sleep apnea (adult) (pediatric) (principal) | CPT/HCPCS: 95806 ==

== ENCOUNTER 2025-03-22 13:09 | Outpatient (AMB) | payer MEDICARE, OTHER, SELFPAY ==
[2025-03-22 13:24] VITALS: BP 104/68; PULSE 81; O2SAT 96; BMI 28.3
--- NOTE | 2025-03-22 13:24 | A.OFFVIS_ITS ---
Vital Signs 03/22/25 13:24 Height 6 ft Weight 209 lb BMI 28.3 BP 104/68 Blood Pressure Location Rt brachial Position Sitting Pulse 81 Pulse Source Auscultation Pulse Oximetry (%) 96 Oxygen Delivery Method Room Air Intake Visit Reasons: Obstructive sleep apnea Allergies metformin Allergy (Unknown, Verified 12/14/24 13:21) rash HPI HPI Obstructive sleep apnea: Details: 74-year-old gentleman, nonsmoker, with underlying history of what appears to be asthma, with reasonable control on Advair, but no recent pulmonary function testing referred to evaluate underlying sleep concerns. Patient states that he sleeps for approximately 10 hours, however he does not feel well rested when he gets up and he gets significant daytime somnolence. He does have family history of sleep apnea in his brother and father. He is interested further evaluation sleep apnea. He denies morning headaches. After the last office visit patient had his sleep study that showed mild degree of underlying obstructive sleep apnea with AHI of 7. He currently is not interested in CPAP therapy. Patient continues on his Advair and albuterol MDI with good control of his symptoms. He did complete his pulmonary function testing. 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 Mother Diabetes Social History Household Members: Spouse and Family Alcohol intake: current Alcohol intake frequency: holidays/special occasions only Patient Tobacco Use Status: Former Tobacco user Review of Systems Const Denies daytime sleepiness, Denies excessive sweating, Denies fatigue, Denies fever(s), Denies lethargy, Denies malaise, Denies night sweats, Denies snoring and Denies weight loss Eyes Denies blurry vision and Denies itchy eyes ENT Denies nasal congestion, Denies post nasal drip, Denies sinus pain, Denies sinus pressure and Denies other ( Thrush) Card Denies chest pain, Denies pedal edema, Denies dyspnea, Denies orthopnea and Denies paroxysmal nocturnal dyspnea Resp Denies cough, Denies hemoptysis, Denies excessive phlegm production, Denies dyspnea, Denies snoring and Denies wheezing GI Denies abdominal pain and Denies heartburn Musc Denies myalgias, Denies arthralgias and Denies joint swelling Skin/Breast Denies rash Neuro Denies memory loss and Denies seizure-like activity Psych Denies abnormal sleep pattern, Denies anxiety and Denies memory loss Endo Denies excessive sweating, Denies fatigue and Denies heat intolerance Arben/Lymph Denies easy bruising Aller/Immun Denies itchy eyes, Denies seasonal rhinorrhea and Denies wheezing Physical Exam Vital Signs: Last Vital Signs Pulse 81 03/22/25 13:24 BP 104/68 03/22/25 13:24 Pulse Ox 96 03/22/25 13:24 Oxygen Delivery Method Room Air 03/22/25 13:24 BMI result Body Mass Index 28.3 Const General: no acute distress and alert Nutritional Appearance: not obese Orientation/consciousness: Other orientation findings ( oriented) HEENT Head: Yes atraumatic Eyes General: appearance normal, both eyes and all related structures Sclerae: sclerae normal EOM: EOMs intact bilaterally Neck Neck: Yes supple Lymphatic: no lymphadenopathy noted Resp Effort & Inspection: normal respiratory effort and no use of accessory muscles Auscultation: clear to auscultation bilaterally Cardio Rate: regular rate Rhythm: regular rhythm Heart sounds: no gallops, no murmurs and no rubs Skin General skin exam: other ( warm) Extrem General: No clubbing, No cyanosis and No edema Assessment & Plan Assessment & Plan (1) Asthma: Code(s): J45.909 - Unspecified asthma, uncomplicated Category: Medical Plan: Well controlled on current regimen of Advair and albuterol MDI. Continue current regimen. (2) CHRISTINE (obstructive sleep apnea): Code(s): G47.33 - Obstructive sleep apnea (adult) (pediatric) Category: Medical Plan: Results of sleep study reviewed, underlying mild CHRISTINE with AHI of 7. At this time patient is not interested in CPAP therapy. Coding Level of Care Code Est Pt Level 4 (76545) Diagnoses Asthma J45.909 CHRISTINE (obstructive sleep apnea) G47.33
== END 2025-03-22 13:40 | disposition home or self-care (01) ==
LOC: HO.HPS 13:10
PROVIDERS: PCP Internal Medicine Medical Oncology; Visit Provider Internal Medicine Pulmonary Disease
DX: J45.909 Unspecified asthma, uncomplicated (principal); G47.33 Obstructive sleep apnea (adult) (pediatric)
CPT/HCPCS: 99214

== ENCOUNTER → 2025-03-22 13:09 | Outpatient (BNVA) | payer MEDICARE, OTHER, SELFPAY | PROVIDERS: PCP Internal Medicine Medical Oncology; Visit Provider Internal Medicine Pulmonary Disease | DX: G47.33 Obstructive sleep apnea (adult) (pediatric) (principal); J45.909 Unspecified asthma, uncomplicated | CPT/HCPCS: 99212 ==

== ENCOUNTER 2025-04-04 11:58 | Outpatient (REF) | payer MEDICARE, OTHER, SELFPAY ==
--- OUTSIDE RECORDS SUMMARY | 2025-04-04 12:42 | XMS_ITS ---
Author Organization Nabil Benitez III, MD Address [address] [place] [address] Care Team Providers Care Cell Biology Scientist Name Role Phone Nabil Benitez Primary Care Provider [phone] Allergies Allergen (clinical drug ingredient) Drug/Non Drug [...] diabetes shilo itus with complication, unspecified whether long chain beamer insulin use (E11.8) Diagnosis 3 Daytime somnolence ( R40.0) Referral Organization Nabil Benitez III, MD Referring Provider First Name Nabil Referring Provider Last Name Eli Referring Provider Speciality Internal M edicine Referred Provider DEWEY MOJICA Referred Provider Specialty Pulmonary Di seases General Notes Arminda Redding SILVICULTURE PROFESSOR 11/06 01:43:38 PM > ref/demo/progress note [...] Once a day Active Sure Comfort Pen Dow[place] 32G X 4 MM Active Advair HFA [...] Date Provider Diagnosis Nabil Benitez III, MD [address] [place] [address] [address] [place], [place] [phone] 10/31/2024 Nabil Benitez Benign prostatic hyperplasia, unspecified whether lower urinary tract symptoms present N40.0 ; Type 2 diabetes mellitus with complication, unspecified whether long chain beamer insulin use E11.8 ; Mixed hyperlipidemia E78.2 [...] 2 diabetes mellitus with complication, unspecified whether skilled nursing insulin use (ICD-10 - E11.8) His hemoglobin [...] Orally Once a day Sure Comfort Pen [place] 32G X 4 MM Advair HFA 45-21 [...] labs Provider Name:Nabil Benitez, 04/10/2025 03:00:00 PM, [address] [place] [address] , [place] [address], [place], [phone], Progress Notes * FEDERICOARISALVERTO Jose ArmandoDOB: [birth year] (74 yo M)Acc No.[id number]:10/31/2024 Progress Notes Patient:?Jose Armando FOSTER Provider:?Nabil Benitez MD :1950???Age:73 Y???Sex:Male Jenaro e:10/31/2024 Address:[address] [place], [place] [id number] Subjective: * Chief Complaints: * ???Recent acute [...] smoking 20 years ago. 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 A daughter of a drug overdose. A son is alive with anxiety. He is retired. He has been to [facility] for many years. * Medications:?TakingJardiance 25 mg [...] INHALATIONS TWICE A DAY Sure Comfort Pen [place] 32G X 4 MM Miscellaneous FreeStyle Lite [...] TWICE A DAY Taking Sure Comfort Pen [place] 32G X 4 MM Miscellaneous Taking FreeStyle [...] 2 diabetes mellitus with complication, unspecified whether skilled nursing insulin use - E11.8 (Primary)???Notes :His hemoglobin [...] INHALATIONS TWICE A DAY;?Continue Sure Comfort Pen Dow[place]iac Miscellaneous, 32G X 4 MM; Continue FreeStyle [...] Benitez MD Date:?10/22 Generated for Printi ng/Elder/eTransmitting on:?04/04/2025 12:41 PM EDT History and Physical Notes * HPI (History of Present Illness) Category Sub-Category Detail Notes COVID-19 Screening Questions Have you had any new onset fever, chills, cough, congestion, sore throat, shortness of breath, muscle aches?: No Have you been exposed to the virus withi n the last 10 days?: No Have you travelled internationally in [facility] last 10 days?: No Have you [...] Provider Not es 10/31/2024 Nabil Benitez MIGUEL [facility] story of sleep apnea daytime somnolence excessive snoring evaluate and treat
--- OUTSIDE RECORDS SUMMARY | 2025-04-04 12:42 | XMS_ITS | Patient Health Record ---
Author Organization Nabil Benitez III, MD Address [address] [place] [address] Care Team Providers Care Media Production Support Manager Name Role Phone Nabil Benitez Primary Care Provider [phone] Allergies Allergen (clinical drug ingredient) Drug/Non Drug [...] 0.2 - 1.3 BLD Negative Negative - Complete Blood Count Auto Di ff Reviewed date:07/13/2024 08:30:41 PM Interpretation: Performing Lab:[facility], [address] [place] [phone] Notes/Report: White Blood Count 8.1 4.8-10.8 X10*3/uL [...] NRBC Abs Auto 0.000 0.0-0.012 X10*3/uL Comprehensive [place]. Panel Fa st Reviewed date:07/13/2024 08:30:41 PM Interpretation: Performing Lab:[facility], [address] [place] [phone] Notes/Report: Sodium 138 135-145 mmol/L Potassium 4.1 3.3-5.1 mmol/L Chloride 101 96-108 mmol/L Carbon Dioxide 28 22-29 mmol/L Anion Gap 13 12-20 Blood Urea Nitrogen 15 9-16 mg/dL Creatinine 1.13 0.5-1.4 mg/dL Estimated Glomerular Filt Rate > 60 NOTE: For [place] Citizen individuals, multiply the result by 1.210. Chronic [...] Panel Reviewed date:07/13/2024 08:30:41 PM Interpretation: Performing Lab:[address] [phone] Notes/Report: Triglycerides 146 <150 mg/dL Desirable Triglyceride: [...] Random Reviewed date:07/13/2024 08:30:41 PM Interpretation: Performing Lab:[facility], [address] [place] [phone] Notes/Report: Creatinine Urine 80.31 Microalbumin Urine 13.0 Microalbum/Creatinine Ratio Ur 16.1 <30 ug/mg cr Albumin/Creatinine Ratio Reference Ranges: Normal: < 30 ug/mg creatinine Microalbuminuria: 30 - 300 ug/mg creatinine Clinical Albuminuria: > 300 ug/mg creatinine Hemoglobin A1c Reviewed date:07/13/2024 08:30:41 PM Interpretation: Performing Lab:[address] [phone] Notes/Report: Hemoglobin A1c % 7.8 <6.0 % [...] average glucose, using the formula of the A3A-Aqyuhue Average Glucose study (ADAG), Diabetes Care, Vol.31,#8, Jun. 2007 Diabetic Eye Exam Reviewed date:08/02/2024 02:04:54 PM Interpretation:undefined Performing Lab: Notes/Report: undefined Complete Blood Count Auto Di ff Reviewed date:10/30/2024 05:30:49 AM Interpretation: Performing Lab:[facility], [address] [place] [phone] Notes/Report: White Blood Count 8.9 4.8-10.8 X10*3/uL [...] NRBC Abs Auto 0.000 0.0-0.012 X10*3/uL Comprehensive [place]. Panel Fa Reviewed date:10/30/2024 05:30:49 AM Interpretation: Performing Lab:[facility], [address] [place] [phone] Notes/Report: Sodium 138 135-145 mmol/L Potassium 3.6 [...] Panel Reviewed date:10/30/2024 05:30:49 AM Interpretation: Performing Lab:[facility], [address] [place] [phone] Notes/Report: Triglycerides 122 <150 mg/dL Desirable Triglyceride: [...] Random Reviewed date:10/30/2024 05:30:49 AM Interpretation: Performing Lab:[facility], [address] [place] [phone] Notes/Report: Creatinine Urine 115.34 Microalbumin Urine 13.0 Microalbum/Creatinine Ratio Ur 11.2 <30 ug/mg cr Albumin/Creatinine Ratio Reference Ranges: Normal: < 30 ug/mg creatinine Microalbuminuria: 30 - 300 ug/mg creatinine Clinical Albuminuria: > 300 ug/mg creatinine Hemoglobin A1c Reviewed date:10/30/2024 05:30:49 AM Interpretation: Performing Lab:[facility], [address] [place] [phone] Notes/Report: Hemoglobin A1c % 7.5 <6.0 % [...] average glucose, using the formula of the Y4J-Jcspbba Average Glucose study (ADAG), Diabetes Care, Vol.31,#8, Jun. 2007 Reason For Referral Reason family history of sl eep apnea daytime somnolence excessive snoring evaluate and treat Diagnosis 1 Overweight (E66.3) Diagnosis 2 Type 2 diabetes shilo itus with complication, unspecified whether fci insulin use (E11.8) Diagnosis 3 Daytime somnolence [...] TWICE A DAY Active Sure Comfort Pen Dickinson 32G X 4 MM USE WITH INSULIN [...] Problem Status W/U Status Risk Notes Problem 9635698 Former smoker (Z87.891) Active confirmed He is highly motivated not to smoke. We created a plan to prevent relapse in times of stress or illness. Problem 412090250 Overweight (E66.3) Active confirmed He remains in the overweight range but has lost 3 pounds. We reviewed his weight loss strategy. We made a plan to lose weight at a rate of one half of a pound per week. Problem 204416886 Mixed hyperlipidemia (E78.2) Active confirmed His fasting lipid profile shows him to be N range. No change in his therapy was necessary today. I advised a healthy weight loss diabetic diet. Problem COPD - Chronic obstructive pulmonary disease (24908573) Chronic obstructive pulmonary disease, unspecified COPD type (J44.9) Active confirmed He is not smoking. He is breathing room air comfortably. He is only short of breath with prolonged exertion. He does not have a productive cough at this time. No change in his regimen was made. Problem 58682838 Essential hypertension (I10) Active confirmed His blood pressure is currently stable and in his target range. I recommended weight loss and sodium restriction but made no change in his medications. Problem 544223858 Primary osteoarthritis of both knees (M17.0) Active confirmed History knee pain has improved. His myelin at the end of the day. He is conducting all of the activities of daily life without impairment. Problem 6686840203912 Coronary artery disease involving [place] coronary artery of [place] heart without angina pectoris (I25.10) Active confirmed His coronary artery disease is stable. His pain up-to-date with cardiology. No change in his regimen as needed today. Problem 854574218658 Daytime somnolence (R40.0) Active confirmed Problem Benign prostatic hypertrophy without outflow obstruction (231142199) Benign prostatic hyperplasia, unspecified whether lower urinary tract symptoms present (N40.0) Active confirmed He arises from sleep twice a night to urinate. We discussed ways to reduce this to lifestyle modifications . Problem Disorder due to type 2 diabetes mellitus (086954982) Type 2 diabetes mellitus with complication, unspecified whether keg filler insulin use (E11.8) Active confirmed His hemoglobin A1c is 7.5. We reviewed his diabetic diet and his weight and his cardiac risk factors in detail today. Made a plan to lose weight. He will continue his attempt to consume a healthy diabetic diet. Problem 022682308 Adenomatous polyp (D36.9) Active confirmed I have [...] Date Provider Diagnosis Nabil Benitez III, MD [address] [place] [address] [place] [phone] 04/07/2024 Nabil Benitez Benign prostatic hyperplasia, unspecified whether lower urinary tract symptoms present N40.0 ; Mixed hyperlipidemia E78.2 ; Type 2 diabetes mellitus with complication, unspecified whether keg filler insulin use E11.8 ; Former smoker Z87.891 ; Essential hypertension I10 ; Coronary artery disease involving [place] coronary artery of [place] heart without angina pectoris I25.10 ; Chronic obstructive pulmonary disease, unspecified COPD type J44.9 ; Overweight E66.3 and Adenomatous polyp D36.9 Nabil Benitez III, MD [address] [place] [address] [place] [phone] 07/11/2024 Nabil Benitez Mixed hyperlipidemia E78.2 ; Coronary artery disease involving [place] coronary artery of [place] heart without angina pectoris I25.10 ; Essential hypertension I10 ; Overweight E66.3 ; Type 2 diabetes mellitus with complication, unspecified whether fci insulin use E11.8 and Former smoker Z87.891 Nabil Benitez III, MD [address] [place] [address] [place] [phone] 10/31/2024 Nabil Benitez Benign prostatic hyperplasia, unspecified whether lower urinary tract symptoms present N40.0 ; Type 2 diabetes mellitus with complication, unspecified whether fci insulin use E11.8 ; Mixed hyperlipidemia E78.2 [...] was necessary. 07/11/2024 Coronary artery disease involving [place] coronary artery of [place] heart without angina pectoris (ICD-10 - [...] 2 diabetes mellitus with complication, unspecified whether fci insulin use (ICD-10 - E11.8) His hemoglobin A1c is 7.5. We reviewed his diabetic diet and his weight and his cardiac risk factors in detail today. Made a plan to lose weight. He will continue his attempt to consume a healthy diabetic diet. 04/07/2024 Type 2 diabetes mellitus with complication, unspecified whether keg filler insulin use (ICD-10 - E11.8) His hemoglobin [...] 2 diabetes mellitus with complication, unspecified whether keg filler insulin use (ICD-10 - E11.8) His fasting [...] per week. 04/07/2024 Coronary artery disease involving [place] coronary artery of [place] heart without angina pectoris (ICD-10 - I25.10) He has been free of cardiac symptoms since his last visit and recently saw his automotive mechanic. He reports that he had a good [...] Order Date PROFILE, FASTING (COMPREHENSIVE METABOLI C) 09/12/2021 PROFILE, FASTING (COMPREHENSIVE METABOLI C) 06/21/2020 PROFILE, FASTING (COMPREHENSIVE METABOLI C) 02/16/2020 PROFILE, FASTING (COMPREHENSIVE METABOLI C) 08/18/2019 PROFILE, FASTING (COMPREHENSIVE METABOLI C) 01/14/2021 PROFILE, FASTING (COMPREHENSIVE METABOLI C) 11/16/2018 PROFILE, FASTING (COMPREHENSIVE METABOLI C) 01/11/2024 PROFILE, FASTING (COMPREHENSIVE METABOLI C) 08/15/2018 PROFILE, FASTING (COMPREHENSIVE METABOLI C) 09/08/2023 PROFILE, FASTING (COMPREHENSIVE METABOLI C) 04/07/2024 PROFILE, FASTING (COMPREHENSIVE METABOLI C) 10/26/2022 PROFILE, FASTING (COMPREHENSIVE METABOLI C) 10/31/2024 PROFILE, FASTING (COMPREHENSIVE METABOLI C) 02/27/2022 PROFILE, FASTING (COMPREHENSIVE METABOLI C) 04/02/2023 PROFILE, FASTING (COMPREHENSIVE METABOLI C) 12/16/2021 PROFILE, FASTING (COMPREHENSIVE METABOLI C) 09/20/2020 PROFILE, FASTING (COMPREHENSIVE METABOLI C) 06/22/2022 PROFILE, FASTING (COMPREHENSIVE METABOLI C) 05/14/2021 HEMOGLOBIN A1C (GLYCOHEMOGLOBIN) 022 HEMOGLOBIN A1C (GLYCOHEMOGLOBIN) 020 HEMOGLOBIN A1C (GLYCOHEMOGLOBIN) 018 HEMOGLOBIN A1C (GLYCOHEMOGLOBIN) 018 HEMOGLOBIN A1C (GLYCOHEMOGLOBIN) 022 HEMOGLOBIN A1C (GLYCOHEMOGLOBIN) 023 HEMOGLOBIN A1C (GLYCOHEMOGLOBIN) 022 LIPID PANEL 04/02/2023 LIPID PANEL 06/22/2022 LIPID PANEL 06/21/2020 LIPID PANEL 02/16/2020 LIPID PANEL 08/18/2019 LIPID PANEL 01/14/2021 LIPID PANEL 11/16/2018 LIPID PANEL 08/15/2018 LIPID PANEL 09/20/2020 PSA, TOTAL 08/15/2018 PSA, TOTAL 05/14/2021 PSA, TOTAL 02/27/2022 PSA, TOTAL 01/11/2024 PSA, TOTAL 02/16/2020 PSA, TOTAL 08/18/2019 PSA, TOTAL 10/26/2022 PSA, TOTAL 10/31/2024 MICROALBUMIN, RANDOM 10/31/2024 MICROALBUMIN, RANDOM 12/16/2021 MICROALBUMIN, RANDOM 02/27/2022 MICROALBUMIN, RANDOM 08/18/2019 MICROALBUMIN, RANDOM 11/16/2018 CBC w DIFF 08/18/2019 CBC w DIFF 11/16/2018 CBC w DIFF 09/20/2020 CBC w DIFF 09/12/2021 CBC w DIFF 08/15/2018 CBC w DIFF 10/31/2024 CBC w DIFF 05/14/2021 CBC w DIFF 04/02/2023 CBC w DIFF 12/16/2021 CBC w DIFF 06/22/2022 CBC w DIFF 02/27/2022 CBC w DIFF 06/21/2020 CBC w DIFF 01/14/2021 CBC w DIFF 02/16/2020 CBC w DIFF 10/26/2022 CBC WITH AUTO DIFF 09/08/2023 CBC WITH AUTO DIFF 04/07/2024 CBC WITH AUTO DIFF 01/11/2024 Lipid Panel 10/26/2022 Lipid Panel 09/12/2021 Lipid Panel 10/31/2024 Lipid Panel 05/14/2021 Lipid Panel 12/16/2021 Lipid Panel 02/27/2022 Lipid Panel 09/08/2023 Lipid Panel 04/07/2024 Lipid Panel 01/11/2024 Microalbumin, Random 09/08/2023 Microalbumin, Random 01/11/2024 Microalbumin, Random 04/07/2024 Microalbumin, Random 10/26/2022 Microalbumin, Random 09/12/2021 Microalbumin, Random 05/14/2021 Hemoglobin A1c 09/08/2023 Hemoglobin A1c 01/11/2024 Hemoglobin A1c 04/07/2024 Hemoglobin A1c 10/26/2022 Hemoglobin A1c 10/31/2024 Hemoglobin A1c 05/14/2021 Next Appt Details Provider Name:Nabil Benitez, 04/10/2025 03:00:00 PM, [address] [place] [address] [address], [place], [address], Insurance Providers Payer Name Payer Address Payer Phone Subscriber Number Group Number Insured Name Patient Relationship to Insured Coverage Start Date Coverage End Date MEDICARE NGS [address] [place] [id number] Jose Armando Foster Self - patient is the insured /TR ICARE [address] [place] [address] [phone] [id number] Jose Armando Foster Self - patient is [...]
--- OUTSIDE RECORDS SUMMARY | 2025-04-04 12:42 | XMS_ITS ---
Author Organization Nabil Benitez III, MD Address [address] [place] [address] Care Team Providers Care Co Founder And Director Name Role Phone Nabil Benitez Primary Care [...] - In Vitro Active Sure Comfort Pen [place] 32G X 4 MM Active Social History [...] Provider Diagnosis Nabil Benitez III, MD [address] [place] [address] [place] [address] 04/07/2024 Nabil Benitez Benign prostatic hyperplasia, unspecified whether lower urinary tract symptoms present N40.0 ; Mixed hyperlipidemia E78.2 ; Type 2 diabetes mellitus with complication, unspecified whether mcfp insulin use E11.8 ; Former smoker Z87.891 ; Essential hypertension I10 ; Coronary artery disease involving [place] cross coronary artery of holy cross heart without angina pectoris I25.10 ; Chronic [...] 2 diabetes mellitus with complication, unspecified whether mcfp insulin use (ICD-10 - E11.8) His hemoglobin [...] weight reduction. 04/07/2024 Coronary artery disease involving holy cross coronary artery of holy cross heart without angina pectoris (ICD-10 - I25.10) He has been free of cardiac symptoms since his last visit and recently saw his bowling or skating front desk clerk. He reports that he had a good [...] a amadeo l Orally Once a day Symbicort 80-4.5 [...] Test - In Vitro Sure Comfort Pen [place] 32G X 4 MM Pending Test Test Name Order Date PROFILE, FASTING (COMPREHENSIVE METABOLI C) 04/07/2024 CBC WITH AUTO DIFF 04/07/2024 Lipid Panel 04/07/2024 Microalbumin, Random 04/07/2024 Hemoglobin A1c 04/07/2024 Next Appt Details Follow Up: 3 Months, Reason: OV Provider Name:Nabil Benitez, 04/10/2025 03:00:00 PM, [address] [place] [address] , [place] [address], [place], [address], Progress Notes * Jose Armando MESSINADOB: [birth year] (73 yo M)Acc No.[id number]:04/07/2024 Progress Notes Patient:?Jose Armando Messina Provider:?Nabil Benitez MD :1950???Age:73 Y???Sex:Male Jenaro e:04/07/2024 Address:[address] [place], [place] [id number] Subjective: * Chief Complaints: * ???Annual exam [...] smoking 20 years ago. 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 A [...] Tablet Chewable 1 tablet Orally Once a [id number] 200 MG Capsule 1 capsule with a meal Orally Once a dayJanuvia 100 MG Tablet 1 tablet Orally Once a daySymbicort 80-4.5 MCG/ACT Aerosol 2 puffs Inhalation Twice a dayAdvair HFA 45-21 MCG/ACT Aerosol USE 2 INHALATIONS TWICE A DAY Lantus SoloStar 100 UNIT/ML Solution Pen-injector Subcutaneous Sure Comfort Pen [place] 32G X 4 MM Miscellaneous FreeStyle Lite [...] Solution Pen-injector Subcutaneous Taking Sure Comfort Pen [place] 32G X 4 MM Miscellaneous Taking FreeStyle [...] mg/dL) 33 (Ref Range: mg/dL) * Lab:[facility] * Order Date 03/28/2024 [...] 2 diabetes mellitus with complication, unspecified whether mcfp insulin use - E11.8, His hemoglobin A1c [...] restriction and weight reduction.?6.?Coronary artery disease involving holy cross coronary artery of holy cross heart without angina pectoris - I25.10, He has been free of cardiac symptoms since his last visit and recently saw his bowling or skating front desk clerk. He reports that he had a good [...] 2 diabetes mellitus with complication, unspecified whether mcfp insulin use?LAB: PROFILE, FASTING (COMPREHENSIVE METABOLIC) ?LAB: [...] Pen-injector, 100 UNIT/ML, Subcutaneous;?Continue Sure Comfort Pen [place] Miscellaneous, 32G X 4 MM;?Continue FreeStyle Lite [...] * ?BLD Negative Negative - * Procedure Codes:?07757 URINE -NO MICRO * Preventive Medicine:? ??Counseling:?Care [...] Benitez MD Date:?03/22 Generated for Blaine dowell/Elder/Chastityransmitting on:?04/04/2025 12:42 PM EDT History and Physical Notes * [...]
--- OUTSIDE RECORDS SUMMARY | 2025-04-04 12:43 | XMS_ITS ---
Author Organization Nabil Benitez III, MD Address [address] [place] [address] Care Team Providers Care Capital Equipment Specialist Name Role Phone Nabil Benitez Primary Care [...] 1 PEN WEEKLY Active Sure Comfort Pen [place] 32G X 4 MM Active FreeStyle Lite [...] Date Provider Diagnosis Nabil Benitez III, MD [address] [place] [address] [address] [place], [place] [phone] 07/11/2024 Nabil Benitez Mixed hyperlipidemia E78.2 ; Coronary artery disease involving [place] coronary artery of [place] heart without angina pectoris I25.10 ; Essential hypertension I10 ; Overweight E66.3 ; Type 2 diabetes mellitus with complication, unspecified whether intermodal customer service insulin use E11.8 and Former smoker Z87.891 Assessments Encounter Date Diagnosis (ICD Code) Assessment Notes Treat ment Notes Treatment Clinical Notes 07/11/2024 Mixed hyperlipidemia (ICD-10 - E78.2) The current fasting lipid profile shows excellent control of his lipids. We discussed weight reduction strategies today. No change in his medications was necessary. 07/11/2024 Coronary artery disease involving [place] coronary artery of [place] heart without angina pectoris (ICD-10 - I25.10) [...] INJECT 1 PEN WEEKLY Sure Comfort Pen [place] 32G X 4 MM FreeStyle Lite Test [...] labs Provider Name:Nabil Benitez, 04/10/2025 03:00:00 PM, [address] [place] [address] [address], [place], [address], Progress Notes * Jose Armando MESSINADOB: [birth year] (73 yo M)Acc No.[id number]:07/11/2024 Progress Notes Patient:?Jose Armando Messina Provider:?Nabil Benitez MD :1950???Age:73 Y???Sex:Male Jenaro e:07/11/2024 Address: [facility] Subjective: * Chief Complaints: * ???DiabetesCOPDArthritis bot [...] his pharmacy is out of stock of [employer]. The battery in his glucometer is . His breathing is unlabored. He continues to have some pain in his right knee but it is not worse. He has had no angina syncope or palpitations. He saw his environmental marketing representative last month and was given an appointment [...] smoking 20 years ago. 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 A daughter of a drug overdose. A son is alive with anxiety. He is retired. He has been to [place] for many years. * Medications:?TakingTrulicity 3 MG/0.5ML [...] Tablet Chewable 1 tablet Orally Once a [id number] 200 MG Capsule 1 capsule with a meal Orally Once a dayJanuvia 100 MG Tablet 1 tablet Orally Once a daySymbicort 80-4.5 MCG/ACT Aerosol 2 puffs Inhalation Twice a dayAdvair HFA 45-21 MCG/ACT Aerosol USE 2 INHALATIONS TWICE A DAY Lantus SoloStar 100 UNIT/ML Solution Pen-injector Subcutaneous Sure Comfort Pen [place] 32G X 4 MM Miscellaneous FreeStyle Lite [...] Solution Pen-injector Subcutaneous Taking Sure Comfort Pen [place] 32G X 4 MM Miscellaneous Taking FreeStyle [...] his medications was necessary.?2.?Coronary artery disease involving [place] coronary artery of [place] heart without angina pectoris - I25.10, His [...] 2 diabetes mellitus with complication, unspecified whether intermodal customer service insulin use - E11.8, His fasting glucose [...] * Treatment: 2.?Coronary artery disease i nvolving [place] coronary artery of [place] heart without angina pectoris?LAB: PROFILE, FASTING (COMPREHENSIVE [...] mellitus with complication, unspecified whether long-term insulin use?LAB: PROFILE, FASTING (COMPREHENSIVE METABOLIC) ?LAB: [...] Pen-injector, 100 UNIT/ML, Subcutaneous;?Continue Sure Comfort Pen [place] Miscellaneous, 32G X 4 MM;?Continue FreeStyle Lite [...] Benitez MD Date:?06/23 Generated for Blaine dowell/Elder/Danyelle on:?04/04/2025 12:42 PM EDT History and Physical [...]
[2025-04-04 13:05] LABS: MANUAL DIFF FLAG NO
[2025-04-04 13:12] LABS: Basophils Percent Auto 0.5 % (0-2); Eosinophils Absolute Auto 0.5 X10*3/uL (0.0-0.4); Eosinophils Percent Auto 6.7 % (0-4); Hematocrit 49.7 % (42.0-52.0); Hemoglobin 16.7 g/dl (14.0-18.0); Imm Gran Abs Auto 0.02 X10*3/uL (0.00-0.03); Imm Gran Pct Auto 0.3 % (0.0-0.4); Mean Corpuscular HGB Conc 33.6 g/dl (31.0-36.0); Mean Corpuscular Hemoglobin 30.1 pg (27.0-33.0); Mean Corpuscular Volume 89.5 fL (80.0-98.0); Monocytes Absolute Auto 0.6 X10*3/uL (0.1-1.2); Monocytes Percent Auto 8.1 % (2-11); Neutrophils Absolute Auto 4.7 x10*3/uL (2.0-8.3); Neutrophils Percent Auto 59.4 % (45-73); Platelet Count 161 X10*3/uL (160-400); Red Blood Count 5.55 X10*6/uL (4.60-5.80); Red Cell Distribution Width 13.4 % (11.0-16.0)
[2025-04-04 13:20] LABS: Alanine Aminotransferase 54 U/L (0-40); Albumin Level 4.4 g/dL (3.5-5.0); Alkaline Phosphatase 95 U/L (39-117); Anion Gap 15 (12-20); Aspartate Amino Transferase 40 U/L (5-37); Bilirubin Total 0.9 mg/dL (0.0-1.0); Blood Urea Nitrogen 22 mg/dL (9-16); Calcium 9.5 mg/dL (8.4-10.2); Carbon Dioxide 26 mmol/L (22-29); Chloride 103 mmol/L (96-108); Cholesterol 126 mg/dL (<200); Estimated Glomerular Filt Rate > 60; Glucose Fasting 155 mg/dL (60-99); HDL Cholesterol 37 mg/dL (>40); LDL Cholesterol Calculated 71 mg/dL (<100); Sodium 140 mmol/L (135-145); Total Protein 7.3 g/dL (6.5-8.0); Triglycerides 94 mg/dL (<150)
[2025-04-04 13:31] LABS: Estimated Average Glucose 177 mg/dL; Hemoglobin A1C 262.8203 umol/L; Hemoglobin A1c % 7.8 % (<6.0); Total Hemoglobin (HGBA1C) 4288.5958 umol/L
[2025-04-04 13:36] LABS: Creatinine Urine 72.59 mg/dL
[2025-04-04 13:41] LABS: Prostate Specific Antigen 3.43 ng/mL (<0.05-4.0)
== END 2025-04-04 11:59 | disposition home or self-care (01) ==
LOC: HO.10HDL 11:58
PROVIDERS: Visit Provider Internal Medicine Medical Oncology
DX: N40.0 Benign prostatic hyperplasia without lower urinary tract symptoms (principal); Z12.5 Encounter for screening for malignant neoplasm of prostate; E78.2 Mixed hyperlipidemia; E11.8 Type 2 diabetes mellitus with unspecified complications; I10 Essential (primary) hypertension; E66.3 Overweight
CPT/HCPCS: 36415; 80053; 80061; 82043; 82570; 83036; 84153; 85025

== ENCOUNTER 2025-07-05 10:44 | Outpatient (REF) | payer MEDICARE, OTHER, SELFPAY ==
--- OUTSIDE RECORDS SUMMARY | 2024-10-31 10:30 | XMS_ITS ---
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 (E11.8) Diagnosis 3 Daytime somnolence ( R40.0) Referral Organization Nabil Benitez III, MD Referring Provider First Name Nabil Referring Provider Last Name Eli Referring Provider Speciality Internal M edicine Referred Provider DEWEY MOJICA Referred Provider Specialty Pulmonary Di seases General Notes Arminda Redding 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 MACHINE SETTER 11/06 01:43:38 PM > ref/demo/progress note faxed [...] Once a day Active Sure Comfort Pen [place] 32G X 4 MM Active Advair HFA [...] Date Provider Diagnosis Nabil Benitez III, MD [address] [place] [address] [address], [place] [id number] 10/31/2024 Nabil Benitez Benign prostatic hyperplasia, unspecified whether lower urinary tract symptoms present N40.0 ; Type 2 diabetes mellitus with complication, unspecified whether jail insulin use E11.8 ; Mixed hyperlipidemia E78.2 [...] 2 diabetes mellitus with complication, unspecified whether jail insulin use (ICD-10 - E11.8) His hemoglobin [...] Orally Once a day Sure Comfort Pen [place] 32G X 4 MM Advair HFA 45-21 [...] scheduled, Reason: OV review labs Provider Name:Nabil Benitez, 07/11/2025 10:30:00 AM, [address] [place] [address] [address], [place], [id number], Provider Name:Nabil Benitez, 04/12/2026 03:00:00 PM, [address] [place] [address] [address], [place], [phone], Progress Notes * Jose Armando FOSTERDOB: [birth year] (74 yo M)Acc No.[id number]:10/31/2024 Progress Notes Patient: Jose Armando ISLAS Provider: Luis Benitez MD :1950 A ge:73 Y S ex:Male Date:10/31/2024 Address:[address] [place], [place] [id number] Subjective: * Chief Complaints: * R ecent [...] smoking 20 years ago. 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 A daughter of a drug overdose. A son is alive with anxiety. He is retired. He has been to [facility] for many years. * Medications: T akingJardiance [...] INHALATIONS TWICE A DAY Sure Comfort Pen [place] 32G X 4 MM Miscellaneous FreeStyle Lite [...] TWICE A DAY Taking Sure Comfort Pen [place] 32G X 4 MM Miscellaneous Taking FreeStyle [...] Abs Auto 0.000 0.0-0.012 - X10*3/uL Lab:Alan Wellington l Fast * Collection Date 10/24/2024 07/10/2024 [...] relaxed. HEAD: a traumatic, normocephalic. EYES: e orsalina, perrla, anicteric, conjugate. EARS: n ormal. NOSE: [...] 2 diabetes mellitus with complication, unspecified whether jail insulin use - E11.8 (Primary) N otes [...] A DAY; C ontinue Sure Comfort Pen [place] Miscellaneous, 32G X 4 MM; Continue FreeStyle [...] of tobacco use and urged to quit. 1 01/01/2024 DM Care Plan: P atient Lifestyle [...] Luis Benitez MD Date: 01/01/2024 Generated for Jsi magalys/Elder/Hemaitting on: 0 07/05/2025 11:51 AM EDT History and Physical Notes * HPI (History of Present Illness) Category Sub-Category Detail Notes COVID-19 Screening Questions Have you had any new onset fever, chills, cough, congestion, sore throat, shortness of breath, muscle aches?: No Have you been exposed to the virus withi n the last 10 days?: No Have you travelled internationally in [facility] last 10 days?: No Have you been [...] Ted lynch 10/31/2024 Nabil Benitez MIGUEL family md story of sleep apnea daytime somnolence excessive snoring evaluate and treat
[2025-07-05 13:42] LABS: MANUAL DIFF FLAG NO
[2025-07-05 13:46] LABS: Hematocrit 49.0 % (42.0-52.0); Hemoglobin 16.9 g/dl (14.0-18.0); Imm Gran Abs Auto 0.02 X10*3/uL (0.00-0.03); Imm Gran Pct Auto 0.3 % (0.0-0.4); Lymphocytes Absolute Auto 1.8 X10*3/uL (1.2-4.9); Mean Corpuscular HGB Conc 34.5 g/dl (31.0-36.0); Mean Corpuscular Hemoglobin 30.7 pg (27.0-33.0); Mean Corpuscular Volume 88.9 fL (80.0-98.0); NRBC Abs Auto 0.000 X10*3/uL (0.0-0.012); NRBC Pct Auto 0.0 /100WBC (0.0-0.2); Platelet Count 158 X10*3/uL (160-400); Red Blood Count 5.51 X10*6/uL (4.60-5.80); White Blood Count 7.9 X10*3/uL (4.8-10.8)
[2025-07-05 14:09] LABS: Hemoglobin A1C 274.6991 umol/L; Total Hemoglobin (HGBA1C) 4231.3008 umol/L
[2025-07-05 14:10] LABS: Alanine Aminotransferase 45 U/L (0-40); Albumin Level 4.7 g/dL (3.5-5.0); Alkaline Phosphatase 82 U/L (39-117); Anion Gap 13 (12-20); Aspartate Amino Transferase 38 U/L (5-37); Blood Urea Nitrogen 20 mg/dL (9-16); Calcium 9.6 mg/dL (8.4-10.2); Carbon Dioxide 26 mmol/L (22-29); Chloride 103 mmol/L (96-108); Cholesterol 135 mg/dL (<200); Estimated Glomerular Filt Rate > 60; HDL Cholesterol 33 mg/dL (>40); Potassium 4.1 mmol/L (3.3-5.1); Sodium 138 mmol/L (135-145); Total Protein 7.2 g/dL (6.5-8.0); Triglycerides 145 mg/dL (<150)
[2025-07-05 14:16] LABS: Microalbum/Creatinine Ratio Ur 15.0 ug/mg cr (<30)
== END 2025-07-05 10:45 | disposition home or self-care (01) ==
LOC: HO.10HDL 10:44
PROVIDERS: Visit Provider Internal Medicine Medical Oncology
DX: Z00.00 Encounter for general adult medical examination without abnormal findings (principal); E11.8 Type 2 diabetes mellitus with unspecified complications; N40.0 Benign prostatic hyperplasia without lower urinary tract symptoms; E78.2 Mixed hyperlipidemia
CPT/HCPCS: 36415; 80053; 80061; 82043; 82570; 83036; 85025

== ENCOUNTER 2025-11-12 09:40 | Outpatient (REF) | payer MEDICARE, OTHER, SELFPAY ==
--- OUTSIDE RECORDS SUMMARY | 2024-07-11 09:45 | XMS_ITS ---
Author Organization Nabil Benitez III, MD Address [address] [place] [address] Care Team Providers Care Managing Manager Name Role Phone Dr. Nabil Benitez III Primary Care Provider Allergies Allergen (clinical drug ingredient) Drug/Non Drug Allergy documented on EMR Reaction Allergy Type Onset Date Status Dust Mites Unknown Allergy Active Cat dander Cat Dander Unknown Allergy Active metformin Metformin HCl Unknown Drug Allergy Act lauren REASON FOR VISIT Diabetes, COPD, Arthritis both knees, Hyperlipidemia, Coronary artery disease, Hypertension Medications Medication SIG (Take, Route, Frequency, Duration) Notes Start Date End Date Status Jardiance 25 mg TAKE 1 TABLET DAILY Active Lisinopril 40 mg TAKE 1 TABLET DAILY Active Trulicity 3 MG/0.5ML INJECT 1 PEN WEEKLY Active Sure Comfort Pen [place] 32G X 4 MM Active FreeStyle Lite Test - In Vitro Active Advair HFA 45-21 MCG/ACT USE 2 INHALATIO NS TWICE A DAY Active Lantus SoloStar 100 UNIT/ML Subcutaneous Active CoQ10 200 MG 1 capsule with a amadeo l Orally Once a day Active Januvia 100 MG 1 tablet Orally Once a day Active Symbicort 80-4.5 MCG/ACT 2 puffs Inhalat ion Twice a day Active Metoprolol Succinate ER 25 mg TAKE 1 TAB LET TWICE A DAY Active Atorvastatin Calcium 80 mg TAKE 1 TABLET DAILY Active hydroCHLOROthiazide 25 mg TAKE 1 TABLET DAILY IN THE MORNING Active Toprol XL 25 MG TAKE 1 TABLET TWICE A DAY Active Aspirin 81 81 MG 1 tablet Orally Once a day Active Social History Tobacco Use: Social History Observation Description Date Details (start date - stop date) Former Smoker NA - NA Sex Assigned At : Social History Observation Description Sex Assigned At Male Tobacco Use/Smoking Question Answer Notes Patient is a former smoker How long has it been since you last smoked? > 10 years Additional Findings: Tobacco Non-User Ex-cigaret te smoker Vital Signs Temperature 97.8 degrees Fahrenheit 07/11/20 24 Blood pressure systolic 110 mm Hg 07/11/20 24 Blood pressure diastolic 74 mm Hg 024 Heart Rate 69 /min 07/11/2024 Height 72 in 07/11/2024 Weight 215 lbs 07/11/2024 BMI 29.16 kg/m2 07/11/2024 Encounters Encounter Location Date Provider Diagnosis Nabil Benitez III, MD [address] [place] [address] DR [place], [place] [id number] 07/11/2024 Nabil Benitez Mixed hyperlipidemia E78.2 ; Coronary artery disease involving [place] coronary artery of [place] heart without angina pectoris I25.10 ; Essential hypertension I10 ; Overweight E66.3 ; Type 2 diabetes mellitus with complication, 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 We discussed weight reduction strategies today. No change in his medications was necessary. 07/11/2024 Coronary artery disease involving [place] coronary artery of [place] heart without angina pectoris (ICD-10 - I25.10) His coronary artery disease is stable. His pain up-to-date with cardiology. No change in his regimen as needed today. 07/11/2024 Essential hypertension (ICD-10 - I10) His blood pressure is currently well controlled and within normal limits. I recommended aggressive weight loss combined with sodium restriction. 07/11/2024 Overweight (ICD-10 - E66.3) HisHis body mass index is 29. We reviewed his diet and his nutrition. We made a plan to lose weight at a rate of one half of a pound per week through a diet restricted in fat calories and sodium combined with regular activity. 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 This is slightly higher than in the past. We discussed weight reduction strategies, a diabetic diet, regular physical activity and to reduce calorie diet. I recommended aggressive weight loss. 07/11/2024 Former smoker (ICD-1 0 - Z87.891) He is highly motivated not to smoke. We created a plan to prevent relapse in times of stress or illness. Plan Of Treatment Medication Medication Name Sig Start Date Stop Date Notes Jardiance 25 mg TAKE 1 TABLET DAILY Lisinopril 40 mg TAKE 1 TABLET DAILY Trulicity 3 MG/0.5ML INJECT 1 PEN WEEKLY Sure Comfort Pen [place] 32G X 4 MM FreeStyle Lite Test - In Vitro Advair HFA 45-21 MCG/ACT USE 2 INHALATIO NS TWICE A DAY Lantus SoloStar 100 UNIT/ML Subcutaneous CoQ10 200 MG 1 capsule with a amadeo l Orally Once a day Januvia 100 MG 1 tablet Orally Once a day Symbicort 80-4.5 MCG/ACT 2 puffs Inhalat ion Twice a day Metoprolol Succinate ER 25 mg TAKE 1 TABLET TWICE A DAY Atorvastatin Calcium 80 mg TAKE 1 TABLET DAILY hydroCHLOROthiazide 25 mg TAKE 1 TABLET DAILY IN THE MORNING Toprol XL 25 MG TAKE 1 TABLET TWICE A DAY Aspirin 81 81 MG 1 tablet Orally Once a day Next Appt Details Follow Up: October, Reason: ov review labs Provider Name:Nabil Benitez , 11/20/2025 10:45:00 AM, [address] [place] [address] [place], [place], [phone], Provider Name:Nabil Benitez , 04/12/2026 03:00:00 PM, [address] [place] [address] TAI COREA, [place] MARTINEZ, [id number], Progress Notes * Jose Armando MESSINADOB: [birth year] (73 yo M)Acc No.[id number]:07/11/2024 Progress Notes Patient: Jose Armando Chahal Provider: Luis Benitez MD :1950 A ge:73 Y S ex:Male Date:07/11/2024 Address:[address] [place], [place] [id number] Subjective: * Chief Complaints: * D iabetesCOPDArthritis both kneesHyperlipidemiaCoronary artery diseaseHypertension * HPI: C OVID-19 Screening: Questions H ave you experienced fever, chills, cough, sore throat, shortness of breath, difficulty breathing, muscle aches, loss of taste or smell? N o H ave you been exposed to the virus within the last 10 days? N o H ave you travelled internationally in the last 10 days? N o H ave you been exposed to COVID-19 in the past? Y es He has had a cough lately likely a viral bronchitis. He is coughing up yellow phlegm but has no fever or chills. He says his diabetes is controlled with blood glucose levels under 150 even though his pharmacy is out of stock of Zyncd. The battery in his glucometer is . His breathing is unlabored. He continues to have some pain in his right knee but it is not worse. He has had no angina syncope or palpitations. 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 He has been stable. * ROS: G eneral/Constitutional: pain B oth knees. C hills d enies. F atigue?admits. F ever d enies. E NT: Decreased hearing d enies. R espiratory: Cough n on-productive. C ardiovascular: Chest pain with exertion d enies. D yspnea on exertion?denies. S hortness of breath d enies. G astrointestinal: Constipation o ccasional. D ecreased appetite d enies. D iarrhea d enies. H eartburn d enies. N ausea d enies. R ectal bleeding d enies. V omiting d enies. H ematology: bruising d enies. p etechiae d enies. S wollen glands n one have been noted. G enitourinary: Frequent urination o nce a night. M usculoskeletal: Muscle aches d enies. P ainful joints d enies. S ciatica d enies. W eakness d enies. S kin: Itching d enies. R elsa d enies. S kin lesion(s)?denies. N eurologic: Difficulty speaking d enies. D izziness d enies.?Headache d enies. L ow back pain d enies. P sychiatric: Depressed mood d enies. * Medical History: * Surgical History: v asectomy 05/1983colonoscopy, tubular adenomas 2009colonoscopy, Dr. High, one tubular adenoma 11/2018 * Hospitalization/Major Diagno stic Procedure: D enies Past Hospitalization * Family History: F ather: 92 yrs, Aneurysm, asthma. M other: 89 yrs, Diabetes, neuropathy, dementia, diagnosed with DM. S iblings: alive, diagnosed with Cancer. 3 brother(s) . 1 son(s) , 1 daughter(s) - healthy. . father alive dx with aneurysum breathing problems. Mother alive Dx with diabetes type 2. Brother Dx with colon cancer. * Social History: T obacco Use: T obacco Use/Smoking P atient is a f ormer smoker H ow long has it been since you last smoked??> 10 years A dditional Findings: Tobacco Non-User E x-cigarette smoker H e stopped smoking 20 years ago. 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 A daughter of a drug overdose. A son is alive with anxiety. He is retired. He has been to [facility] for many years. * Medications: T akingTrulicity 3 MG/0.5ML Solution Pen-injector INJECT 1 PEN WEEKLY Metoprolol Succinate ER 25 mg Tablet Extended Release 24 Hour TAKE 1 TABLET TWICE A DAY Atorvastatin Calcium 80 mg Tablet TAKE 1 TABLET DAILY hydroCHLOROthiazide 25 mg Tablet TAKE 1 TABLET DAILY IN THE MORNING Toprol XL 25 MG Tablet Extended Release 24 Hour TAKE 1 TABLET TWICE A DAY Aspirin 81 81 MG Tablet Chewable 1 tablet Orally Once a [id number] 200 MG Capsule 1 capsule with a meal Orally Once a dayJanuvia 100 MG Tablet 1 tablet Orally Once a daySymbicort 80-4.5 MCG/ACT Aerosol 2 puffs Inhalation Twice a dayAdvair HFA 45-21 MCG/ACT Aerosol USE 2 INHALATIONS TWICE A DAY Lantus SoloStar 100 UNIT/ML Solution Pen-injector Subcutaneous Sure Comfort Pen [place] 32G X 4 MM Miscellaneous FreeStyle Lite Test - Strip In Vitro Lisinopril 40 mg Tablet TAKE 1 TABLET DAILY Jardiance 25 mg Tablet TAKE 1 TABLET DAILY Medication List reviewed and reconciled with the patientTaking Trulicity 3 MG/0.5ML Solution Pen-injector INJECT 1 PEN WEEKLY Taking Metoprolol Succinate ER 25 mg Tablet Extended Release 24 Hour TAKE 1 TABLET TWICE A DAY Taking Atorvastatin Calcium 80 mg Tablet TAKE 1 TABLET DAILY Taking hydroCHLOROthiazide 25 mg Tablet TAKE 1 TABLET DAILY IN THE MORNING Taking Toprol XL 25 MG Tablet Extended Release 24 Hour TAKE 1 TABLET TWICE A DAY Taking Aspirin 81 81 MG Tablet Chewable 1 tablet Orally Once a dayTaking CoQ10 200 MG Capsule 1 capsule with a meal Orally Once a dayTaking Januvia 100 MG Tablet 1 tablet Orally Once a dayTaking Symbicort 80-4.5 MCG/ACT Aerosol 2 puffs Inhalation Twice a dayTaking Advair HFA 45-21 MCG/ACT Aerosol USE 2 INHALATIONS TWICE A DAY Taking Lantus SoloStar 100 UNIT/ML Solution Pen-injector Subcutaneous Taking Sure Comfort Pen [place] 32G X 4 MM Miscellaneous Taking FreeStyle Lite Test - Strip In Vitro Taking Lisinopril 40 mg Tablet TAKE 1 TABLET DAILY Taking Jardiance 25 mg Tablet TAKE 1 TABLET DAILY Medication List reviewed and reconciled with the patient * Allergies: M etformin HClCat DanderDust Mitesno[Allergies Verified] Objective: * Vitals: H t: 72, Wt:215, BMI:29.16, BP:110/74, HR:69, Temp:97.8, Wt-k.52. * P ast Orders: Lab:Lipid Panel * Order Date 07/10/2024 03/28/2024 08/31/2023 Triglycerides 146 (Ref Range: <150 mg/dL) 126 (Ref Range: <150 mg/dL) 123 (Ref Range: <150 mg/dL) Cholesterol 116 (Ref Range: <200 mg/dL) 123 (Ref Range: <200 mg/dL) 118 (Ref Range: <200 mg/dL) LDL Cholesterol Calculated 54 (Ref Range: <100 mg/dL) 63 (Ref Range: <100 mg/dL) 61 (Ref Range: <100 mg/dL) HDL Cholesterol 33 L (Ref Range: >40 mg/dL) 35 L (Ref Range: >40 mg/dL) 33 L (Ref Range: >40 mg/dL) * Lab:Comprehensive [place]. Pane l Fast * Order Date 07/10/2024 03/28/2024 08/31/2023 Sodium 138 (Ref Range: 135-145 mmol/L) 139 (Ref Range: 135-145 mmol/L) 138 (Ref Range: 135-145 mmol/L) Bilirubin Total 1.8 H (Ref Range: 0.0-1.0 mg/dL) 1.6 H (Ref Range: 0.0-1.0 mg/dL) 1.4 H (Ref Range: 0.0-1.0 mg/dL) Aspartate Amino Transferase 34 (Ref Range: 5-37 U/L) 28 (Ref Range: 5-37 U/L) 27 (Ref Range: 5-37 U/L) Alanine Aminotransferase 38 (Ref Range: 0-40 U/L) 37 (Ref Range: 0-40 U/L) 29 (Ref Range: 0-40 U/L) Total Protein 7.2 (Ref Range: 6.5-8.0 g/dL) 7.2 (Ref Range: 6.5-8.0 g/dL) 7.4 (Ref Range: 6.5-8.0 g/dL) Albumin Level 4.5 (Ref Range: 3.5-5.0 g/dL) 4.4 (Ref Range: 3.5-5.0 g/dL) 4.5 (Ref Range: 3.5-5.0 g/dL) Alkaline Phosphatase 81 (Ref Range: 39-117 U/L) 81 (Ref Range: 39-117 U/L) 88 (Ref Range: 39-117 U/L) Potassium 4.1 (Ref Range: 3.3-5.1 mmol/L) 3.5 (Ref Range: 3.3-5.1 mmol/L) 4.1 (Ref Range: 3.3-5.1 mmol/L) Chloride 101 (Ref Range: 96-108 mmol/L) 102 (Ref Range: 96-108 mmol/L) 101 (Ref Range: 96-108 mmol/L) Carbon Dioxide 28 (Ref Range: 22-29 mmol/L) 27 (Ref Range: 22-29 mmol/L) 27 (Ref Range: 22-29 mmol/L) Anion Gap 13 (Ref Range: 12-20) 14 (Ref Range: 12-20) 14 (Ref Range: 12-20) Blood Urea Nitrogen 15 (Ref Range: 9-16 mg/dL) 18 H (Ref Range: 9-16 mg/dL) 20 H (Ref Range: 9-16 mg/dL) Creatinine 1.13 (Ref Range: 0.5-1.4 mg/dL) 0.96 (Ref Range: 0.5-1.4 mg/dL) 0.95 (Ref Range: 0.5-1.4 mg/dL) Estimated Glomerular Filt Rate > 60 > 60 > 60 Glucose Fasting 140 H (Ref Range: 60-99 mg/dL) 145 H (Ref Range: 60-99 mg/dL) 168 H (Ref Range: 60-99 mg/dL) Calcium 10.1 (Ref Range: 8.4-10.2 mg/dL) 10.0 (Ref Range: 8.4-10.2 mg/dL) 9.9 (Ref Range: 8.4-10.2 mg/dL) * Lab:Complete Blood Count Aut o Diff * Order Date 07/10/2024 03/28/2024 08/31/2023 White Blood Count 8.1 (Ref Range: 4.8-10.8 X10*3/uL) 7.9 (Ref Range: 4.8-10.8 X10*3/uL) 8.3 (Ref Range: 4.8-10.8 X10*3/uL) Red Blood Count 5.61 (Ref Range: 4.60-5.80 X10*6/uL) 5.56 (Ref Range: 4.60-5.80 X10*6/uL) 5.73 (Ref Range: 4.60-5.80 X10*6/uL) Hemoglobin 17.0 (Ref Range: 14.0-18.0 g/dl) 17.0 (Ref Range: 14.0-18.0 g/dl) 17.1 (Ref Range: 14.0-18.0 g/dl) Hematocrit 50.2 (Ref Range: 42.0-52.0 %) 49.5 (Ref Range: 42.0-52.0 %) 51.9 (Ref Range: 42.0-52.0 %) Mean Corpuscular Volume 89.5 (Ref Range: 80.0-98.0 fL) 89.0 (Ref Range: 80.0-98.0 fL) 90.6 (Ref Range: 80.0-98.0 fL) Mean Corpuscular Hemoglobin 30.3 (Ref Range: 27.0-33.0 pg) 30.6 (Ref Range: 27.0-33.0 pg) 29.8 (Ref Range: 27.0-33.0 pg) Mean Corpuscular HGB Conc 33.9 (Ref Range: 31.0-36.0 g/dl) 34.3 (Ref Range: 31.0-36.0 g/dl) 32.9 (Ref Range: 31.0-36.0 g/dl) Red Cell Distribution Width 13.3 (Ref Range: 11.0-16.0 %) 13.3 (Ref Range: 11.0-16.0 %) 13.5 (Ref Range: 11.0-16.0 %) Platelet Count 142 L (Ref Range: 160-400 X10*3/uL) 152 L (Ref Range: 160-400 X10*3/uL) 173 (Ref Range: 160-400 X10*3/uL) Mean Platelet Volume 9.8 (Ref Range: 9.4-12.4 fL) 9.8 (Ref Range: 9.4-12.4 fL) 9.9 (Ref Range: 9.4-12.4 fL) Neutrophils Percent Auto 52.6 (Ref Range: 45-73 %) 60.7 (Ref Range: 45-73 %) 57.4 (Ref Range: 45-73 %) Imm Gran Pct Auto 0.4 (Ref Range: 0.0-0.4 %) 0.3 (Ref Range: 0.0-0.4 %) 0.4 (Ref Range: 0.0-0.4 %) Lymphocytes Percent Auto 29.8 (Ref Range: 20-40 %) 24.4 (Ref Range: 20-40 %) 27.4 (Ref Range: 20-40 %) Monocytes Percent Auto 9.1 (Ref Range: 2-11 %) 7.3 (Ref Range: 2-11 %) 7.9 (Ref Range: 2-11 %) Eosinophils Percent Auto 7.5 H (Ref Range: 0-4 %) 6.8 H (Ref Range: 0-4 %) 6.3 H (Ref Range: 0-4 %) Basophils Percent Auto 0.6 (Ref Range: 0-2 %) 0.5 (Ref Range: 0-2 %) 0.6 (Ref Range: 0-2 %) NRBC Pct Auto 0.0 (Ref Range: 0.0-0.2 /100WBC) 0.0 (Ref Range: 0.0-0.2 /100WBC) 0.0 (Ref Range: 0.0-0.2 /100WBC) Neutrophils Absolute Auto 4.2 (Ref Range: 2.0-8.3 x10*3/uL) 4.8 (Ref Range: 2.0-8.3 x10*3/uL) 4.8 (Ref Range: 2.0-8.3 x10*3/uL) Imm Gran Abs Auto 0.03 (Ref Range: 0.00-0.03 X10*3/uL) 0.02 (Ref Range: 0.00-0.03 X10*3/uL) 0.03 (Ref Range: 0.00-0.03 X10*3/uL) Lymphocytes Absolute Auto 2.4 (Ref Range: 1.2-4.9 X10*3/uL) 1.9 (Ref Range: 1.2-4.9 X10*3/uL) 2.3 (Ref Range: 1.2-4.9 X10*3/uL) Monocytes Absolute Auto 0.7 (Ref Range: 0.1-1.2 X10*3/uL) 0.6 (Ref Range: 0.1-1.2 X10*3/uL) 0.7 (Ref Range: 0.1-1.2 X10*3/uL) Eosinophils Absolute Auto 0.6 H (Ref Range: 0.0-0.4 X10*3/uL) 0.5 H (Ref Range: 0.0-0.4 X10*3/uL) 0.5 H (Ref Range: 0.0-0.4 X10*3/uL) Basophils Absolute Auto 0.1 (Ref Range: 0.0-0.2 X10*3/uL) 0.0 (Ref Range: 0.0-0.2 X10*3/uL) 0.1 (Ref Range: 0.0-0.2 X10*3/uL) NRBC Abs Auto 0.000 (Ref Range: 0.0-0.012 X10*3/uL) 0.000 (Ref Range: 0.0-0.012 X10*3/uL) 0.000 (Ref Range: 0.0-0.012 X10*3/uL) * Lab:Hemoglobin A1c * Order Date 07/10/2024 03/28/2024 08/31/2023 Hemoglobin A1c % 7.8 H (Ref Range: <6.0 %) 7.5 H (Ref Range: <6.0 %) 7.2 H (Ref Range: <6.0 %) Estimated Average Glucose 177 (Ref Range: mg/dL) 169 (Ref Range: mg/dL) 160 (Ref Range: mg/dL) * Lab:Microalbumin, Random * Order Date 07/10/2024 03/28/2024 03/29/2023 Creatinine Urine 80.31 (Ref Range: mg/dL) 92.69 (Ref Range: mg/dL) 100.94 (Ref Range: mg/dL) Microalbumin Urine 13.0 (Ref Range: mg/L) 17.0 (Ref Range: mg/L) 10.0 (Ref Range: mg/L) Microalbum Creatinine Ratio Ur 16.1 (Ref Range: <30 ug/mg cr) 18.3 (Ref Range: <30 ug/mg cr) 9.9 (Ref Range: ug/mg cr) * Examination: G eneral Examination: GENERAL APPEARANCE: p leasant, well nourished, well developed, in no acute distress, calm and relaxed , overweight , man. HEAD: a traumatic, normocephalic. EYES: e rosalina, perrla, anicteric, conjugate. EARS: n ormal. NOSE: s eptum intact. ORAL CAVITY: n ormal, unremarkable. NECK/THYROID: n o jugular venous distention, no carotid bruit, thyroid normal. LYMPH NODES: n o enlarged lymph nodes,spleen normal. SKIN: n o suspicious lesions, anicteric. HEART: n o clicks, gallops, murmurs, or rubs, regular rhythm, S1, S2 normal, no s3, or vascular bruits. LUNGS: c lear to auscultation . BREASTS: no masses palpable bilaterally. ABDOMEN: b owel sounds normal, no ascites, no organomegaly, no mass , overweight. RECTAL EXAM: n ot examined. MUSCULOSKELETAL: no clubbing, cyanosis or edema, Crepitus both knees. PERIPHERAL PULSES: n ormal. NEUROLOGIC: a lert and oriented, cranial nerves 2-12 grossly intact, deep tendon reflexes 2+ symmetrical, motor strength normal upper and lower extremities, sensory exam intact. PSYCH: a lert, oriented. Assessment: * Assessment: 1. M ixed hyperlipidemia - E78.2, The current fasting lipid profile shows excellent control of his lipids. We discussed weight reduction strategies today. No change in his medications was necessary. 2 . C oronary artery disease involving [place] coronary artery of [place] heart without angina pectoris - I25.10, His coronary artery disease is stable. His pain up-to-date with cardiology. No change in his regimen as needed today. 3 . E ssential hypertension - I10, His blood pressure is currently well controlled and within normal limits. I recommended aggressive weight loss combined with sodium restriction. 4 . O verweight - E66.3, HisHis body mass index is 29. We reviewed his diet and his nutrition. We made a plan to lose weight at a rate of one half of a pound per week through a diet restricted in fat calories and sodium combined with regular activity. 5 .?Type 2 diabetes mellitus with complication, unspecified whether residential insulin use - E11.8, His fasting glucose is 140 with a hemoglobin A1c of 7.8. This is slightly higher than in the past. We discussed weight reduction strategies, a diabetic diet, regular physical activity and to reduce calorie diet. I recommended aggressive weight loss. 6 . F ormer smoker - Z87.891, He is highly motivated not to smoke. We created a plan to prevent relapse in times of stress or illness. Plan: * Treatment: 2. C oronary artery disease involving [place] coronary artery of [place] heart without angina pectoris L AB: PROFILE, FASTING (COMPREHENSIVE METABOLIC) L AB: MICROALBUMIN, RANDOM L AB: CBC w DIFF L AB: Lipid Panel L AB: Hemoglobin A1c 3. E ssential hypertension L AB: PROFILE, FASTING (COMPREHENSIVE METABOLIC) L AB: MICROALBUMIN, RANDOM L AB: CBC w DIFF L AB: Lipid Panel L AB: Hemoglobin A1c 4. O verweight L AB: PROFILE, FASTING (COMPREHENSIVE METABOLIC) L AB: MICROALBUMIN, RANDOM L AB: CBC w DIFF L AB: Lipid Panel L AB: Hemoglobin A1c 5. T ype 2 diabetes mellitus with complication, unspecified whether residential insulin use L AB: PROFILE, FASTING (COMPREHENSIVE METABOLIC) L AB: MICROALBUMIN, RANDOM L AB: CBC w DIFF L AB: Lipid Panel L AB: Hemoglobin A1c 6. O thers Continue Jardiance Tablet, 25 mg, TAKE 1 TABLET DAILY; C ontinue Lisinopril Tablet, 40 mg, TAKE 1 TABLET DAILY; C ontinue Trulicity Solution Pen-injector, 3 MG/0.5ML, INJECT 1 PEN WEEKLY; Continue Metoprolol Succinate ER Tablet Extended Release 24 Hour, 25 mg, TAKE 1 TABLET TWICE A DAY; C ontinue Atorvastatin Calcium Tablet, 80 mg, TAKE 1 TABLET DAILY; C ontinue hydroCHLOROthiazide Tablet, 25 mg, TAKE 1 TABLET DAILY IN THE MORNING; C ontinue Toprol XL Tablet Extended Release 24 Hour, 25 MG, TAKE 1 TABLET TWICE A DAY; C ontinue Aspirin 81 Tablet Chewable, 81 MG, 1 tablet, Orally, Once a day; C ontinue CoQ10 Capsule, 200 MG, 1 capsule with a meal, Orally, Once a day; C ontinue Januvia Tablet, 100 MG, 1 tablet, Orally, Once a day; C ontinue Symbicort Aerosol, 80-4.5 MCG/ACT, 2 puffs, Inhalation, Twice a day; C ontinue Advair HFA Aerosol, 45-21 MCG/ACT, USE 2 INHALATIONS TWICE A DAY; C ontinue Lantus SoloStar Solution Pen-injector, 100 UNIT/ML, Subcutaneous; C ontinue Sure Comfort Pen [place] Miscellaneous, 32G X 4 MM; C ontinue FreeStyle Lite Test Strip, -, In Vitro. * Procedure Codes: * Preventive Medicine: Counseling: C are goal follow-up plan: Counseling for abnormal BMI given Y es Above Normal BMI Follow-up D ietary management education, guidance, and counseling, Dietary needs education, Exercise promotion: strength training, Exercise promotion: stretching, Feeding regime, Giving encouragement to exercise, Lifestyle education regarding diet, Nutrition / feeding management, Nutrition therapy, Prescribed activity/exercise education, Prescribed diet education, Prescribed dietary intake, Special diet education, Weight monitoring , Intervention, Order not done: Medical or Other reason not done S moking/Tobacco Use Patient counseled on the dangers of tobacco use and urged to quit. 0 07/11/2024 DM Care Plan: P atient Lifestyle Goals P atient wants to be able to manage diabetes without too much effort. T reatment Goals H bA1C < 7.0, Blood Sugars less than < 115. B arriers n o barriers. S elf-Managment Goals W ork on weight loss, with a goal of losing 1 lb per week. * Follow Up: Derick duff (Reason: ov review labs ) * Images: * Sign off status: Completed true * Provider: Luis Benitez MD Date: 0 07/11/2024 Generated for Blaine dowell/Elder/eTransmitting on: 1 01/13/2025 11:09 AM EST History and Physical Notes * HPI (History of Present Illness) Category Sub-Category Detail Notes COVID-19 Screening Questions Have you had any new onset fever, chills, cough, congestion, sore throat, shortness of breath, muscle aches?: No Have you been exposed to the virus withi n the last 10 days?: No Have you travelled internationally in [facility] last 10 days?: No Have you been exposed to COVID-19 in the past?: Yes Examination Category Sub-Category Detail Notes General Examination GENERAL APPEARANCE: pleasant , well nourished, well developed, in no acute distress, calm and relaxed , overweight , man HEAD: atraumatic, normocep halic EYES: eomi, perrla, anicte deandra, conjugate EARS: normal NOSE: septum intact NECK/THYROID: no jugular venous di stention, no carotid bruit, thyroid normal HEART: no clicks, gallops, murmurs, or rubs, regular rhythm, S1, S2 normal, no s3, or vascular bruits LUNGS: clear to auscultatio n ABDOMEN: bowel sounds normal, no ascites, no organomegaly, no mass , overweight NEUROLOGIC: alert and oriented, cranial nerves 2-12 grossly intact, deep tendon reflexes 2+ symmetrical, motor strength normal upper and lower extremities, sensory exam intact SKIN: no suspicious lesion s, anicteric PERIPHERAL PULSES: normal BREASTS: no masses palpable b ilaterally MUSCULOSKELETAL: no clubbing, cyanosi s or edema, Crepitus both knees LYMPH NODES: no enlarged lymph no eleno,spleen normal RECTAL EXAM: not examined PSYCH: alert, oriented ORAL CAVITY: normal, unremarkable
--- OUTSIDE RECORDS SUMMARY | 2024-10-31 09:30 | XMS_ITS ---
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) Diagnosis 3 Daytime somnolence ( R40.0) Referral Organization Nabil Benitez III, MD Referring Provider First Name Nabil Referring Provider Last Name Eli Referring Provider Speciality Internal M edicine Referred Provider DEWEY MOJICA Referred Provider Specialty Pulmonary Di seases General Notes Arminda Redding CMA 11/06 01:43:38 PM > ref/demo/progress note faxed to Dr Mojica office, Arminda Redding CMA 11/30/2024 03:31:05 PM > I called Dr Mojica office pt has appt 12/14/2024 at 1:30pm Referral Priority Routine Referral Appointment Date 12/14/2024 REASON FOR VISIT Recent acute right knee pain, Benign prostatic hypertrophy, COPD, Coronary artery disease, diabetes, Hypertension, Hyperlipidemia Medications Medication SIG (Take, Route, Frequency, Duration) Notes Start Date End Date Status Symbicort 80-4.5 MCG/ACT 2 puffs Inhalat ion Twice a day Active Januvia 100 MG 1 tablet Orally Once a day Active Sure Comfort Pen [place] 32G X 4 MM Active Advair HFA 45-21 MCG/ACT USE 2 INHALATIO NS TWICE A DAY Active FreeStyle Lite Test - In Vitro Active Atorvastatin Calcium 80 mg TAKE 1 TABLET DAILY Active Toprol XL 25 MG TAKE 1 TABLET TWICE A DAY Active hydroCHLOROthiazide 25 mg TAKE 1 TABLET DAILY IN THE MORNING Active CoQ10 200 MG 1 capsule with a amadeo l Orally Once a day Active Aspirin 81 81 MG 1 tablet Orally Once a day Active Lantus SoloStar 100 UNIT/ML INJECT 36 UN ITS UNDER THE SKIN DAILY Active Lisinopril 40 mg TAKE 1 TABLET DAILY Active Jardiance 25 mg TAKE 1 TABLET DAILY Active Metoprolol Succinate ER 25 mg TAKE 1 TAB LET TWICE A DAY Active Trulicity 3 MG/0.5ML INJECT 1 PEN WEEKLY Active Fluticasone-Salmeterol 45-21 MCG/ACT USE 2 INHALATIONS TWICE A DAY Active Social History Tobacco Use: Social History [...] Non-User Ex-cigaret te smoker Vital Signs Temperature 98.8 degrees Fahrenheit 10/31/20 24 Blood pressure systolic 113 mm Hg 10/31/20 24 Blood pressure diastolic 69 mm Hg 024 Heart Rate 76 /min 10/31/2024 Height 72 in 10/31/2024 Weight 212 lbs 10/31/2024 BMI 28.75 kg/m2 10/31/2024 A Encounters Encounter Location Date Provider Diagnosis Nabil Benitez III, MD [address] [place] [address] [address], [place] [id number] 10/31/2024 Nabil Benitez Benign prostatic hyperplasia, unspecified whether lower urinary tract symptoms present N40.0 ; Type 2 diabetes mellitus with complication, 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 We discussed ways to reduce this to lifestyle modifications. 10/31/2024 Type 2 diabetes mellitus with complication, unspecified whether retirement insulin use (ICD-10 - E11.8) His hemoglobin A1c is 7.5. We reviewed his diabetic diet and his weight and his cardiac risk factors in detail today. Made a plan to lose weight. He will continue his attempt to consume a healthy diabetic diet. 10/31/2024 Mixed hyperlipidemia (ICD-10 - E78.2) His fasting lipid profile shows him to be N range. No change in his therapy was necessary today. I advised a healthy weight loss diabetic diet. 10/31/2024 Essential hypertension (ICD-10 - I10) His blood pressure is currently stable and in his target range. I recommended weight loss and sodium restriction but made no change in his medications. 10/31/2024 Overweight (ICD-10 - E66.3) He remains in the overweight range but has lost 3 pounds. We reviewed his weight loss strategy. We made a plan to lose weight at a rate of one half of a pound per week. 10/31/2024 Former smoker (ICD-1 0 - Z87.891) He is highly motivated not to smoke. We created a plan to prevent relapse in times of stress or illness. 10/31/2024 Primary osteoarthritis of both knees (ICD-10 - M17.0) History knee pain has improved. His myelin at the end of the day. He is conducting all of the activities of daily life without impairment. Plan Of Treatment Medication Medication Name Sig Start Date Stop Date Notes Symbicort 80-4.5 MCG/ACT 2 puffs Inhalat ion Twice a day Januvia 100 MG 1 tablet Orally Once a day Sure Comfort Pen [place] 32G X 4 MM Advair HFA 45-21 MCG/ACT USE 2 INHALATIO NS TWICE A DAY FreeStyle Lite Test - In Vitro Atorvastatin Calcium 80 mg TAKE 1 TABLET DAILY Toprol XL 25 MG TAKE 1 TABLET TWICE A DAY hydroCHLOROthiazide 25 mg TAKE 1 TABLET DAILY IN THE MORNING CoQ10 200 MG 1 capsule with a amadeo l Orally Once a day Aspirin 81 81 MG 1 tablet Orally Once a day Lantus SoloStar 100 UNIT/ML INJECT 36 UN ITS UNDER THE SKIN DAILY Lisinopril 40 mg TAKE 1 TABLET DAILY Jardiance 25 mg TAKE 1 TABLET DAILY Metoprolol Succinate ER 25 mg TAKE 1 TABLET TWICE A DAY Trulicity 3 MG/0.5ML INJECT 1 PEN WEEKLY Fluticasone-Salmeterol 45-21 MCG/ACT USE 2 INHALATIONS TWICE A DAY Pending Test Test Name Order Date PROFILE, FASTING (COMPREHENSIVE METABOLI C) 10/31/2024 PSA, TOTAL 10/31/2024 MICROALBUMIN, RANDOM 10/31/2024 CBC w DIFF 10/31/2024 Lipid Panel 10/31/2024 Hemoglobin A1c 10/31/2024 Referrals Referral Date Details 10/31/2024 10/31/2024, family h istory of sleep apnea daytime somnolence excessive snoring evaluate and treat, DEWEY MOJICA Next Appt Details Follow Up: March as scheduled, Reason: OV review labs Provider Name:Nabil Benitez , 11/20/2025 10:45:00 AM, [address] [place] [address] [address], [place], [phone], Provider Name:Nabil Benitez , 04/12/2026 03:00:00 PM, [address] [place] [address] [address], [place], [id number], Progress Notes * Jose Armando FOSTERDOB: [birth year] (74 yo M)Acc No.[id number]:10/31/2024 Progress Notes Patient: Jose Armando ISLAS Provider: Luis Benitez MD :1950 A ge:73 Y S ex:Male Date:10/31/2024 Address:[address] [place], [place] [id number] Subjective: * Chief Complaints: * R ecent acute right knee painBenign prostatic hypertrophyCOPDCoronary artery diseaseDiabetesHypertensionHyperlipidemia * HPI: C OVID-19 Screening: He comes to the office today for a scheduled visit to monitor his metabolic syndrome. His chief complaint today is pain in his right knee. 2 weeks ago he developed pain in the back of his right knee without any trauma or undue strain. It was very painful for a coouple of weeks but has now resolved. Examination of his right knee was unremarkable today.His blood work from October 24 was reviewed in detail.His hemoglobin A1c was 7.5.He has lost 3 pounds and his body mass index is 28. He seemed generally healthy and well today. He has had no exertional angina. His dyspnea on exertion is stable and he is comfortable at rest. Questions H ave you had any new onset fever, chills, cough, congestion, sore throat, shortness of breath, muscle aches? N o H ave you been exposed to the virus within the last 10 days? N o H ave you travelled internationally in the last 10 days? N o H ave you been exposed to COVID-19 in the past? Y es * ROS: G eneral/Constitutional: pain R ecent pain, posterior right knee. C hills d enies. F atigue a dmits. F ever d enies. E NT: Decreased hearing d enies. R espiratory: Cough d enies. C ardiovascular: Chest pain with exertion d enies. D yspnea on exertion?denies. S hortness of breath w ith exertion. G astrointestinal: Constipation o ccasional. D ecreased appetite d enies. D iarrhea d enies. H eartburn d enies. N ausea d enies. R ectal bleeding d enies. V omiting d enies. H ematology: bruising d enies. p etechiae d enies. S wollen glands n one have been noted. G enitourinary: Frequent urination t wice a night. M usculoskeletal: Muscle aches d [...] smoking 20 years ago. 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 A daughter of a drug overdose. A son is alive with anxiety. He is retired. He has been to [facility] for many years. * Medications: T akingJardiance 25 mg Tablet TAKE 1 TABLET DAILY Lisinopril 40 mg Tablet TAKE 1 TABLET DAILY Trulicity 3 MG/0.5ML Solution Pen-injector INJECT 1 [...] Tablet Chewable 1 tablet Orally Once a day CoQ10 200 MG Capsule 1 capsule with a meal Orally Once a day Januvia 100 MG Tablet 1 tablet Orally Once a day Symbicort 80-4.5 MCG/ACT Aerosol 2 puffs Inhalation Twice a day Advair HFA 45-21 MCG/ACT Aerosol USE 2 INHALATIONS TWICE A DAY Sure Comfort Pen [place] 32G X 4 MM Miscellaneous FreeStyle Lite Test - Strip In Vitro Fluticasone-Salmeterol 45-21 MCG/ACT Aerosol USE 2 INHALATIONS TWICE A DAY Lantus SoloStar 100 UNIT/ML Solution Pen-injector INJECT 36 UNITS UNDER THE SKIN DAILY Medication List reviewed and reconciled with the patientTaking Jardiance 25 mg Tablet TAKE 1 TABLET DAILY Taking Lisinopril 40 mg Tablet TAKE 1 TABLET DAILY Taking Trulicity 3 MG/0.5ML Solution Pen-injector INJECT 1 [...] Tablet Chewable 1 tablet Orally Once a day Taking CoQ10 200 MG Capsule 1 capsule with a meal Orally Once a day Taking Januvia 100 MG Tablet 1 tablet Orally Once a day Taking Symbicort 80-4.5 MCG/ACT Aerosol 2 puffs Inhalation Twice a day Taking Advair HFA 45-21 MCG/ACT Aerosol USE 2 INHALATIONS TWICE A DAY Taking Sure Comfort Pen [place] 32G X 4 MM Miscellaneous Taking FreeStyle Lite Test - Strip In Vitro Taking Fluticasone-Salmeterol 45-21 MCG/ACT Aerosol USE 2 INHALATIONS TWICE A DAY Taking Lantus SoloStar 100 UNIT/ML Solution Pen-injector INJECT 36 UNITS UNDER THE SKIN DAILY Medication List reviewed and reconciled with the patient * Allergies: M etformin HClCat DanderDust Mitesno[Allergies Verified] Objective: * Vitals: H t: 72, Wt:212, BMI:28.75, BP:113/69, HR:76, Temp:98.8, Wt-k.16. A. * P ast Orders: L ab:Complete Blood Count Auto Diff (Order Date - 10/24/2024) (Collection Date & Time - 10/24/2024 10:54 AM) Value Reference Range White Blood Count 8.9 4.8-10.8 - X10*3/uL Red Blood Count 5.69 4.60-5.80 - X10*6/uL Hemoglobin 17.1 14.0-18.0 - g/dl Hematocrit 50.5 42.0-52.0 - % Mean Corpuscular Volume 88.8 80.0-98.0 - fL Mean Corpuscular Hemoglobin 30.1 27.0-33.0 - pg Mean Corpuscular HGB Conc 33.9 31.0-36.0 - g/ dl Red Cell Distribution Width 13.4 11.0-16.0 - % Platelet Count 155 L 160-400 - X10*3/uL Mean Platelet Volume 10.0 9.4-12.4 - fL Neutrophils Percent Auto 58.4 45-73 - % Imm Gran Pct Auto 0.2 0.0-0.4 - % Lymphocytes Percent Auto 24.5 20-40 - % Monocytes Percent Auto 8.1 2-11 - % Eosinophils Percent Auto 8.0 H 0-4 - % Basophils Percent Auto 0.8 0-2 - % NRBC Pct Auto 0.0 0.0-0.2 - /100WBC Neutrophils Absolute Auto 5.2 2.0-8.3 - x10* 3/uL Imm Gran Abs Auto 0.02 0.00-0.03 - X10*3/uL Lymphocytes Absolute Auto 2.2 1.2-4.9 - X10* 3/uL Monocytes Absolute Auto 0.7 0.1-1.2 - X10*3/ uL Eosinophils Absolute Auto 0.7 H 0.0-0.4 - X10* 3/uL Basophils Absolute Auto 0.1 0.0-0.2 - X10*3/ uL NRBC Abs Auto 0.000 0.0-0.012 - X10*3/uL Lab:[facility] * Collection Date 10/24/2024 07/10/2024 03/28/2024 Collection Time 10:54 AM 09:30 AM 10:32 AM Order Date 10/24/2024 07/10/2024 03/28/2024 Sodium 138 (Ref Range: 135-145 mmol/L) 138 (Ref Range: 135-145 mmol/L) 139 (Ref Range: 135-145 mmol/L) Bilirubin Total 1.7 H (Ref Range: 0.0-1.0 mg/dL) 1.8 H (Ref Range: 0.0-1.0 mg/dL) 1.6 H (Ref Range: 0.0-1.0 mg/dL) Aspartate Amino Transferase 35 (Ref Range: 5-37 U/L) 34 (Ref Range: 5-37 U/L) 28 (Ref Range: 5-37 U/L) Alanine Aminotransferase 39 (Ref Range: 0-40 U/L) 38 (Ref Range: 0-40 U/L) 37 (Ref Range: 0-40 U/L) Total Protein 7.3 (Ref Range: 6.5-8.0 g/dL) 7.2 (Ref Range: 6.5-8.0 g/dL) 7.2 (Ref Range: 6.5-8.0 g/dL) Albumin Level 4.5 (Ref Range: 3.5-5.0 g/dL) 4.5 (Ref Range: 3.5-5.0 g/dL) 4.4 (Ref Range: 3.5-5.0 g/dL) Alkaline Phosphatase 89 (Ref Range: 39-117 U/L) 81 (Ref Range: 39-117 U/L) 81 (Ref Range: 39-117 U/L) Potassium 3.6 (Ref Range: 3.3-5.1 mmol/L) 4.1 (Ref Range: 3.3-5.1 mmol/L) 3.5 (Ref Range: 3.3-5.1 mmol/L) Chloride 102 (Ref Range: 96-108 mmol/L) 101 (Ref Range: 96-108 mmol/L) 102 (Ref Range: 96-108 mmol/L) Carbon Dioxide 28 (Ref Range: 22-29 mmol/L) 28 (Ref Range: 22-29 mmol/L) 27 (Ref Range: 22-29 mmol/L) Anion Gap 12 (Ref Range: 12-20) 13 (Ref Range: 12-20) 14 (Ref Range: 12-20) Blood Urea Nitrogen 18 H (Ref Range: 9-16 mg/dL) 15 (Ref Range: 9-16 mg/dL) 18 H (Ref Range: 9-16 mg/dL) Creatinine 1.07 (Ref Range: 0.5-1.4 mg/dL) 1.13 (Ref Range: 0.5-1.4 mg/dL) 0.96 (Ref Range: 0.5-1.4 mg/dL) Estimated Glomerular Filt Rate > 60 > 60 > 60 Glucose Fasting 155 H (Ref Range: 60-99 mg/dL) 140 H (Ref Range: 60-99 mg/dL) 145 H (Ref Range: 60-99 mg/dL) Calcium 9.9 (Ref Range: 8.4-10.2 mg/dL) 10.1 (Ref Range: 8.4-10.2 mg/dL) 10.0 (Ref Range: 8.4-10.2 mg/dL) * Lab:Lipid Panel * Collection Date 10/24/2024 07/10/2024 03/28/2024 Collection Time 10:54 AM 09:30 AM 10:32 AM Order Date 10/24/2024 07/10/2024 03/28/2024 Triglycerides 122 (Ref Range: <150 mg/dL) 146 (Ref Range: <150 mg/dL) 126 (Ref Range: <150 mg/dL) Cholesterol 127 (Ref Range: <200 mg/dL) 116 (Ref Range: <200 mg/dL) 123 (Ref Range: <200 mg/dL) LDL Cholesterol Calculated 68 (Ref Range: <100 mg/dL) 54 (Ref Range: <100 mg/dL) 63 (Ref Range: <100 mg/dL) HDL Cholesterol 35 L (Ref Range: >40 mg/dL) 33 L (Ref Range: >40 mg/dL) 35 L (Ref Range: >40 mg/dL) * Lab:Hemoglobin A1c * Collection Date 10/24/2024 07/10/2024 03/28/2024 Collection Time 10:54 AM 09:30 AM 10:32 AM Order Date 10/24/2024 07/10/2024 03/28/2024 Hemoglobin A1c % 7.5 H (Ref Range: <6.0 %) 7.8 H (Ref Range: <6.0 %) 7.5 H (Ref Range: <6.0 %) Estimated Average Glucose 169 (Ref Range: mg/dL) 177 (Ref Range: mg/dL) 169 (Ref Range: mg/dL) * Lab:Microalbumin, Random * Collection Date 10/24/2024 07/10/2024 03/28/2024 Collection Time 10:54 AM 09:30 AM 10:32 AM Order Date 10/24/2024 07/10/2024 03/28/2024 Creatinine Urine 115.34 (Ref Range: mg/dL) 80.31 (Ref Range: mg/dL) 92.69 (Ref Range: mg/dL) Microalbumin Urine 13.0 (Ref Range: mg/L) 13.0 (Ref Range: mg/L) 17.0 (Ref Range: mg/L) Microalbum Creatinine Ratio Ur 11.2 (Ref Range: <30 ug/mg cr) 16.1 (Ref Range: <30 ug/mg cr) 18.3 (Ref Range: <30 ug/mg cr) * Examination: G eneral Examination: GENERAL APPEARANCE: p claudia, well nourished, well developed, in no acute distress, calm and relaxed. HEAD: a traumatic, normocephalic. EYES: e rosalina, [...] sounds normal, no ascites, no organomegaly, no mass. RECTAL EXAM: n ot examined. MUSCULOSKELETAL: e xtremities unremarkable, no clubbing, cyanosis or edema. PERIPHERAL PULSES: n ormal. NEUROLOGIC: a lert and oriented, cranial nerves 2-12 grossly intact, deep tendon reflexes 2+ symmetrical, motor strength normal upper and lower extremities, sensory exam intact. PSYCH: a lert, oriented. Assessment: * Assessment: 1. T ype 2 diabetes mellitus with complication, unspecified whether retirement insulin use - E11.8 (Primary) N otes :His hemoglobin A1c is 7.5. We reviewed his diabetic diet and his weight and his cardiac risk factors in detail today. Made a plan to lose weight. He will continue his attempt to consume a healthy diabetic diet. 2 . B enign prostatic hyperplasia, unspecified whether lower urinary tract symptoms present - N40.0 N otes :He arises from sleep twice a night to urinate. We discussed ways to reduce this to lifestyle modifications. 3 . M ixed hyperlipidemia - E78.2 N otes :His fasting lipid profile shows him to be N range. No change in his therapy was necessary today. I advised a healthy weight loss diabetic diet. 4 . E ssential hypertension - I10 N otes :His blood pressure is currently stable and in his target range. I recommended weight loss and sodium restriction but made no change in his medications. 5 . O verweight - E66.3 N otes :He remains in the overweight range but has lost 3 pounds. We reviewed his weight loss strategy. We made a plan to lose weight at a rate of one half of a pound per week. 6 . F ormer smoker - Z87.891 N otes :He is highly motivated not to smoke. We created a plan to prevent relapse in times of stress or illness. 7 . P rimary osteoarthritis of both knees - M17.0 N otes :History knee pain has improved. His myelin at the end of the day. He is conducting all of the activities of daily life without impairment. Plan: * Treatment: 2. B enign prostatic hyperplasia, unspecified whether lower urinary tract symptoms present L AB: PROFILE, FASTING (COMPREHENSIVE METABOLIC) L AB: PSA, TOTAL L AB: MICROALBUMIN, RANDOM L AB: CBC w DIFF L AB: Lipid Panel L AB: Hemoglobin A1c 3. M ixed hyperlipidemia L AB: PROFILE, FASTING (COMPREHENSIVE METABOLIC) L AB: PSA, TOTAL L AB: MICROALBUMIN, RANDOM L AB: CBC w DIFF L AB: Lipid Panel L AB: Hemoglobin A1c 4. E ssential hypertension L AB: PROFILE, FASTING (COMPREHENSIVE METABOLIC) L AB: PSA, TOTAL L AB: MICROALBUMIN, RANDOM L AB: CBC w DIFF L AB: Lipid Panel L AB: Hemoglobin A1c 5. O verweight L AB: PROFILE, FASTING (COMPREHENSIVE METABOLIC) L AB: PSA, TOTAL L AB: MICROALBUMIN, RANDOM L AB: CBC w DIFF L AB: Lipid Panel L AB: Hemoglobin A1c Referral To:DEWEY MOJICA Pulmonary Diseases Reason:family history of sleep apnea daytime somnolence excessive snoring evaluate and treat 6. O thers Continue Fluticasone-Salmeterol Aerosol, 45-21 MCG/ACT, USE 2 INHALATIONS TWICE A DAY; C ontinue Lantus SoloStar Solution Pen-injector, 100 UNIT/ML, INJECT 36 UNITS UNDER THE SKIN DAILY; C ontinue Jardiance Tablet, 25 mg, TAKE 1 TABLET DAILY; C ontinue Lisinopril Tablet, 40 mg, TAKE 1 TABLET DAILY; C ontinue Trulicity Solution Pen-injector, 3 MG/0.5ML, INJECT 1 PEN WEEKLY; C ontinue Metoprolol Succinate ER Tablet Extended Release 24 Hour, 25 mg, TAKE 1 TABLET TWICE A DAY;?Continue Atorvastatin Calcium Tablet, 80 mg, TAKE 1 [...] 2 INHALATIONS TWICE A DAY; C ontinue Sure Comfort Pen [place] Miscellaneous, 32G X 4 MM; Continue FreeStyle Lite Test Strip, -, In Vitro. ? Referral To:DEWEY MOJICA Pulmonary Diseases Reason:family history of sleep apnea daytime somnolence excessive snoring evaluate and treat * Procedure Codes: * Preventive Medicine: Counseling: C are goal follow-up plan: Counseling for abnormal BMI given Y es Above Normal BMI Follow-up D ietary management education, guidance, and counseling, Dietary needs education S moking/Tobacco Use Patient counseled on the dangers of tobacco use and urged to quit. 01/01/2024 DM Care Plan: P atient Lifestyle Goals P atient wants to be able to manage diabetes without too much effort. T reatment Goals H bA1C < 7.0, Blood Sugars less than < 115. B arriers n o barriers. S elf-Managment Goals W ork on weight loss, with a goal of losing 1 lb per week. * Follow Up: M yoli as scheduled (Reason: OV review labs) * Images: * Sign off status: Completed true * Provider: Luis Benitez MD Date: 01/01/2024 Generated for Blaine dowell/Elder/Danyelle on: 1 01/13/2025 11:06 AM EST History and Physical Notes * HPI (History of Present Illness) Category Sub-Category Detail Notes COVID-19 Screening Questions Have you had any new onset fever, chills, cough, congestion, sore throat, shortness of breath, muscle aches?: No Have you been exposed to the virus withi n the last 10 days?: No Have you travelled internationally in [facility] last 10 days?: No Have you been exposed to COVID-19 in the past?: Yes Examination Category Sub-Category Detail Notes General Examination GENERAL APPEARANCE: pleasant , well nourished, well developed, in no acute distress, calm and relaxed HEAD: atraumatic, normocep halic EYES: eomi, perrla, anicte deandra, conjugate EARS: normal NOSE: septum intact NECK/THYROID: no jugular venous di stention, no carotid bruit, thyroid normal HEART: no clicks, gallops, murmurs, or rubs, regular rhythm, S1, S2 normal, no s3, or vascular bruits LUNGS: clear to auscultatio n ABDOMEN: bowel sounds normal, no ascites, no organomegaly, no mass NEUROLOGIC: alert and oriented, cranial nerves 2-12 grossly intact, deep tendon reflexes 2+ symmetrical, motor strength normal upper and lower extremities, sensory exam intact SKIN: no suspicious lesion s, anicteric PERIPHERAL PULSES: normal BREASTS: no masses palpable b ilaterally MUSCULOSKELETAL: extremities unremark able, no clubbing, cyanosis or edema LYMPH NODES: no enlarged lymph no eleno,spleen normal RECTAL EXAM: not examined PSYCH: alert, oriented ORAL CAVITY: normal, unremarkable Consultation Request Notes Referral Date Referring Provider Referred Provider Ted lynch 10/31/2024 Nabil Benitez [place] family sc story of sleep apnea daytime somnolence excessive snoring evaluate and treat
--- OUTSIDE RECORDS SUMMARY | 2025-04-10 10:00 | XMS_ITS ---
Author Organization Nabil Benitez III, MD Address [address] [place] [address] Care Team Providers Care Acting Teacher Name Role Phone Dr. Nabil Benitez III Primary Care Provider Allergies Allergen (clinical drug ingredient) Drug/Non Drug Allergy documented on EMR Reaction Allergy Type Onset Date Status Dust Mites Unknown Allergy Active Cat dander Cat Dander Unknown Allergy Active metformin Metformin HCl Unknown Drug Allergy Act lauren Results Component Value Reference Range Notes URINE DIP STICK Reviewed date:04/10/2025 03:13:55 PM Interpretation: Performing Lab: Notes/Report: SG 1.000 1.005 - 1.025 pH 5.0 5.0 - 9.0 BRETT neg Negative - NIT neg Negative - PRO 15 Negative - Trace GLU 2000 Negative - KET neg Negative - UBG 0.2 0.1 - 1.8 CHANDLER neg 0.2 - 1.3 BLD neg Negative - Menstrating N/A Reason For Referral Reason Evaluate and Treat Right Knee Pain Diagnosis 1 Right knee pain (M25 .561) Referral Organization Nabil Benitez III, MD Referring Provider First Name Nabil Referring Provider Last Name Eli Referring Provider Speciality Internal M edicine Referred Provider [place], [facility] Referred Provider Specialty Orthopedic S urgery General Notes Kristy Sepulveda 04/17/2025 09:23:37 AM > referral and progress note faxed. Patient was made aware, Kristy Sepulveda 04/26/2025 03:14:33 PM > patient was called and left a message questioning if the appointment was made., Kristy Sepulveda 05/09/2025 11:28:12 AM > patient stated he has been seen for this issue already at [facility]. Appointment was 05/03/25, they are recommending surgery Referral Priority Routine Referral Appointment Date 05/03/2025 REASON FOR VISIT annual exam Medications Medication SIG (Take, Route, Frequency, Duration) Notes Start Date End Date Status Aspirin 81 81 MG 1 tablet Orally Once a day Active Sure Comfort Pen Paupack 32G X 4 MM USE WITH INSULIN ONCE DAILY Active CoQ10 200 MG 1 capsule with a amadeo l Orally Once a day Active Atorvastatin Calcium 80 mg 1 Tablet Oral Once a day Active hydroCHLOROthiazide 25 mg TAKE 1 TABLET DAILY. orally daily Active Jardiance 25 mg TAKE 1 TABLET DAILY Active Lantus SoloStar 100 UNIT/ML INJECT 36 UN ITS UNDER THE SKIN DAILY Active Lisinopril 40 mg TAKE 1 TABLET DAILY Active Fluticasone-Salmeterol 45-21 MCG/ACT USE 2 INHALATIONS TWICE A DAY Inhalation Twice a day for 90 days Active Fiber 500 MG as directed Orally Active Fish Oil 1200 MG 1 capsule Orally Onc e a day Active Multi Vitamin - 1 tablet Orally Once a day Active Trulicity 3 MG/0.5ML INJECT 1 PEN WEEKLY Active Metoprolol Succinate ER 25 mg TAKE 1 TAB LET TWICE A DAY Active FreeStyle Lite Test - In Vitro Active Social History Tobacco Use: Social History [...] Non-User Ex-cigaret te smoker Vital Signs Temperature 98.1 degrees Fahrenheit 04/10/20 25 Blood pressure systolic 109 mm Hg 04/10/20 25 Blood pressure diastolic 77 mm Hg 025 Heart Rate 77 /min 04/10/2025 Height 72 in 04/10/2025 Weight 208 lbs 04/10/2025 BMI 28.21 kg/m2 04/10/2025 Encounters Encounter Location Date Provider Diagnosis Nabil Benitez III, MD [address] [place] [address] [address] [place], [place] [id number] 04/10/2025 Nabil Benitez Benign prostatic hyperplasia, unspecified whether lower urinary tract symptoms present N40.0 ; Chronic obstructive pulmonary disease, unspecified COPD type J44.9 ; Mixed hyperlipidemia E78.2 ; Type 2 diabetes mellitus with complication, unspecified whether senior care insulin use E11.8 ; Primary osteoarthritis of both knees M17.0 ; Coronary artery disease involving kaw coronary artery of kaw heart without angina pectoris I25.10 ; Former smoker Z87.891 and Essential hypertension I10 Assessments Encounter Date Diagnosis (ICD Code) Assessment Notes Treat ment Notes Treatment Clinical Notes 04/10/2025 Benign prostatic hyperplasia, unspecified whether lower urinary tract symptoms present (ICD-10 - N40.0) He has been rising from sleep once a night to urinate. We have discussed lifestyle modifications he could make to reduce nocturia. He denies any hematuria or dysuria. 04/10/2025 Chronic obstructive pulmonary disease, unspecified COPD type (ICD-10 - J44.9) He is not smoking. He is breathing room air comfortably. He is only short of breath with prolonged exertion. He does not have a productive cough at this time. No change in his regimen was made. 04/10/2025 Mixed hyperlipidemia (ICD-10 - E78.2) His total cholesterol is 126 and his lipids are stable. He is compliant with his regimen. No changes were necessary today. 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 We are going to utilize weight reduction and a healthy diet low in concentrated sweets combined with regular physical activity to reduce this down to 7.0. He will continue on current medications. 04/10/2025 Primary osteoarthritis of both knees (ICD-10 - M17.0) History knee pain has improved. His myelin at the end of the day. He is conducting all of the activities of daily life without impairment. 04/10/2025 Coronary artery disease involving kaw coronary artery of kaw heart without angina pectoris (ICD-10 - I25.10) His coronary artery disease is stable. His pain up-to-date with cardiology. No change in his regimen as needed today. 04/10/2025 Former smoker (ICD-1 0 - Z87.891) He is highly motivated not to smoke. We created a plan to prevent relapse in times of stress or illness. 04/10/2025 Essential hypertension (ICD-10 - I10) His blood pressure is currently stable and in his target range at 109/77.. I recommended weight loss and sodium restriction but made no change in his medications. Plan Of Treatment Medication Medication Name Sig Start Date Stop Date Notes Aspirin 81 81 MG 1 tablet Orally Once a day Sure Comfort Pen Paupack 32G X 4 MM USE WITH INSULIN ONCE DAILY CoQ10 200 MG 1 capsule with a amadeo l Orally Once a day Atorvastatin Calcium 80 mg 1 Tablet Oral Once a day hydroCHLOROthiazide 25 mg TAKE 1 TABLET DAILY. orally daily Jardiance 25 mg TAKE 1 TABLET DAILY Fluticasone Propionate 93 MCG/ACT 2 spra ys (1 spray in each nostril) Nasally Twice a day for 30 days 04/10/2025 Lantus SoloStar 100 UNIT/ML INJECT 36 UN ITS UNDER THE SKIN DAILY Lisinopril 40 mg TAKE 1 TABLET DAILY Fluticasone-Salmeterol 45-21 MCG/ACT USE 2 INHALATIONS TWICE A DAY Inhalation Twice a day for 90 days Fiber 500 MG as directed Orally Fish Oil 1200 MG 1 capsule Orally Onc e a day Multi Vitamin - 1 tablet Orally Once a day Trulicity 3 MG/0.5ML INJECT 1 PEN WEEKLY Metoprolol Succinate ER 25 mg TAKE 1 TABLET TWICE A DAY FreeStyle Lite Test - In Vitro Pending Test Test Name Order Date PROFILE, FASTING (COMPREHENSIVE METABOLI C) 04/10/2025 CBC w DIFF 04/10/2025 Lipid Panel 04/10/2025 Microalbumin, Random 04/10/2025 Hemoglobin A1c 04/10/2025 Referrals Referral Date Details 04/10/2025 04/10/2025, Evaluate and Treat Right Knee Pain, [facility] Appt Details Follow Up: 3 Months, Reason: OV Provider Name:Nabil Benitez , 11/20/2025 10:45:00 AM, [address] [place], [address], Provider Name:Nabil Benitez , 04/12/2026 03:00:00 PM, [address] [place] [address] [place], [address], Progress Notes * Aditya MESSINAB: [birth year] (74 yo M)Acc No.[id number]:04/10/2025 Progress Notes Patient: Jose Armando ISLAS Provider: Luis Benitez MD :1950 A ge:74 Y S ex:Male Date:04/10/2025 Address: [address] [id number] Subjective: * Chief Complaints: * A nnual exam * HPI: D epression Screening: He returns to the office said April for his annual physical examination. He says he has been feeling healthy and well.He is followed here for prostatism, COPD, arthritis, hyperlipidemia, coronary artery disease, hypertension, diabetes and elevated weight.Comprehensive blood work was available today. It was reviewed with him in detail. He has been compliant with all of his medications. He has no new complaints. PHQ-9 L ittle interest or pleasure in doing things?Not at all F eeling down, depressed, or hopeless N ot at all T rouble falling or staying asleep, or sleeping too much M ore than half the days F eeling tired or having little energy S everal days P oor appetite or overeating N ot at all F eeling bad about yourself or that you are a failure, or have let yourself or your family down N ot at all T rouble concentrating on things, such as reading the newspaper or watching television N ot at all M oving or speaking so slowly that other people could have noticed; or the opposite, being so fidgety or restless that you have been moving around a lot more than usual N ot at all T houghts that you would be better off or of hurting yourself in some way N ot at all T otal Score 3 I nterpretation M inimal Depression v : bleeder in my nose 3x last week, 2 week cold, hemorrhoiids, right knee more painful intermittent pain. S ANN-MARIE Questions: SDOH Questions I n the past year have you been worried about losing your housing? N o I n the past year have you or any family members you live with been unable to get any of the following when it was really needed? Check all that apply: N one F all Risk Screening: Fall History H ave you had any falls with injury in the past year? N o H ave you had two or more falls in the past year? N o F all Risk Assessment: N o falls in the past year * Medical History: * Surgical History: v asectomy 05/1983colonoscopy, tubular adenomas 2009colonoscopy, Dr. High, one tubular adenoma 11/2018 * Hospitalization/Major Diagno stic Procedure: N o Hospitalization History. * Family History: F ather: 92 yrs, [...] smoking 20 years ago. 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 A daughter of a drug overdose. A son is alive with anxiety. He is retired. He has been to [employer] for many years. * Medications: T akingFiber 500 MG Capsule as directed Orally Multi Vitamin - Tablet 1 tablet Orally Once a day Fish Oil 1200 MG Capsule 1 capsule Orally Once a day Fluticasone-Salmeterol 45-21 MCG/ACT Aerosol USE 2 INHALATIONS TWICE A DAY Lantus SoloStar 100 UNIT/ML Solution Pen-injector INJECT 36 UNITS UNDER THE SKIN DAILY Jardiance 25 mg Tablet TAKE 1 TABLET DAILY Lisinopril 40 mg Tablet TAKE 1 TABLET DAILY Aspirin 81 81 MG Tablet Chewable 1 tablet Orally Once a day CoQ10 200 MG Capsule 1 capsule with a meal Orally Once a day FreeStyle Lite Test - Strip In Vitro Sure Comfort Pen Paupack 32G X 4 MM Miscellaneous USE WITH INSULIN ONCE DAILY hydroCHLOROthiazide 25 mg Tablet TAKE 1 TABLET DAILY. orally daily Atorvastatin Calcium 80 mg Tablet 1 Tablet Oral Once a day Trulicity 3 MG/0.5ML Solution Auto-injector INJECT 1 PEN WEEKLY Metoprolol Succinate ER 25 mg Tablet Extended Release 24 Hour TAKE 1 TABLET TWICE A DAY Medication List reviewed and reconciled with the patientTaking Fiber 500 MG Capsule as directed Orally Taking Multi Vitamin - Tablet 1 tablet Orally Once a day Taking Fish Oil 1200 MG Capsule 1 capsule Orally Once a day Taking Fluticasone-Salmeterol 45-21 MCG/ACT Aerosol USE 2 INHALATIONS TWICE A DAY Taking Lantus SoloStar 100 UNIT/ML Solution Pen-injector INJECT 36 UNITS UNDER THE SKIN DAILY Taking Jardiance 25 mg Tablet TAKE 1 TABLET DAILY Taking Lisinopril 40 mg Tablet TAKE 1 TABLET DAILY Taking Aspirin 81 81 MG Tablet Chewable 1 tablet Orally Once a day Taking CoQ10 200 MG Capsule 1 capsule with a meal Orally Once a day Taking FreeStyle Lite Test - Strip In Vitro Taking Sure Comfort Pen Paupack 32G X 4 MM Miscellaneous USE WITH INSULIN ONCE DAILY Taking hydroCHLOROthiazide 25 mg Tablet TAKE 1 TABLET DAILY. orally daily Taking Atorvastatin Calcium 80 mg Tablet 1 Tablet Oral Once a day Taking Trulicity 3 MG/0.5ML Solution Auto-injector INJECT 1 PEN WEEKLY Taking Metoprolol Succinate ER 25 mg Tablet Extended Release 24 Hour TAKE 1 TABLET TWICE A DAY Medication List reviewed and reconciled with the patient * Allergies: M etformin HClCat DanderDust Mitesno[Allergies Verified] Objective: * Vitals: H t: 72, Wt:208, BMI:28.21, BP:109/77, HR:77, Temp:98.1, Wt-k.35. * P ast Orders: Lab:Prostate Specific Antige n * Collection Date 04/04/2025 03/28/2024 03/29/2023 Collection Time 12:05 PM 10:32 AM 10:10 AM Order Date 04/04/2025 03/28/2024 03/29/2023 Prostate Specific Antigen 3.43 (Ref Range: <0.05-4.0 ng/mL) 2.63 (Ref Range: <0.05-4.0 ng/mL) 2.85 (Ref Range: <0.05-4.0 ng/mL) * Lab:Microalbumin, Random * Collection Date 04/04/2025 10/24/2024 07/10/2024 Collection Time 12:05 PM 10:54 AM 09:30 AM Order Date 04/04/2025 10/24/2024 07/10/2024 Creatinine Urine 72.59 (Ref Range: mg/dL) 115.34 (Ref Range: mg/dL) 80.31 (Ref Range: mg/dL) Microalbumin Urine 16.0 (Ref Range: mg/L) 13.0 (Ref Range: mg/L) 13.0 (Ref Range: mg/L) Microalbum Creatinine Ratio Ur 22.0 (Ref Range: <30 ug/mg cr) 11.2 (Ref Range: <30 ug/mg cr) 16.1 (Ref Range: <30 ug/mg cr) * Lab:Hemoglobin A1c * Collection Date 04/04/2025 10/24/2024 07/10/2024 Collection Time 12:05 PM 10:54 AM 09:30 AM Order Date 04/04/2025 10/24/2024 07/10/2024 Hemoglobin A1c % 7.8 H (Ref Range: <6.0 %) 7.5 H (Ref Range: <6.0 %) 7.8 H (Ref Range: <6.0 %) Estimated Average Glucose 177 (Ref Range: mg/dL) 169 (Ref Range: mg/dL) 177 (Ref Range: mg/dL) * Lab:Complete Blood Count Aut o Diff * Collection Date 04/04/2025 10/24/2024 07/10/2024 Collection Time 12:05 PM 10:54 AM 09:30 AM Order Date 04/04/2025 10/24/2024 07/10/2024 White Blood Count 8.0 (Ref Range: 4.8-10.8 X10*3/uL) 8.9 (Ref Range: 4.8-10.8 X10*3/uL) 8.1 (Ref Range: 4.8-10.8 X10*3/uL) Red Blood Count 5.55 (Ref Range: 4.60-5.80 X10*6/uL) 5.69 (Ref Range: 4.60-5.80 X10*6/uL) 5.61 (Ref Range: 4.60-5.80 X10*6/uL) Hemoglobin 16.7 (Ref Range: 14.0-18.0 g/dl) 17.1 (Ref Range: 14.0-18.0 g/dl) 17.0 (Ref Range: 14.0-18.0 g/dl) Hematocrit 49.7 (Ref Range: 42.0-52.0 %) 50.5 (Ref Range: 42.0-52.0 %) 50.2 (Ref Range: 42.0-52.0 %) Mean Corpuscular Volume 89.5 (Ref Range: 80.0-98.0 fL) 88.8 (Ref Range: 80.0-98.0 fL) 89.5 (Ref Range: 80.0-98.0 fL) Mean Corpuscular Hemoglobin 30.1 (Ref Range: 27.0-33.0 pg) 30.1 (Ref Range: 27.0-33.0 pg) 30.3 (Ref Range: 27.0-33.0 pg) Mean Corpuscular HGB Conc 33.6 (Ref Range: 31.0-36.0 g/dl) 33.9 (Ref Range: 31.0-36.0 g/dl) 33.9 (Ref Range: 31.0-36.0 g/dl) Red Cell Distribution Width 13.4 (Ref Range: 11.0-16.0 %) 13.4 (Ref Range: 11.0-16.0 %) 13.3 (Ref Range: 11.0-16.0 %) Platelet Count 161 (Ref Range: 160-400 X10*3/uL) 155 L (Ref Range: 160-400 X10*3/uL) 142 L (Ref Range: 160-400 X10*3/uL) Mean Platelet Volume 10.0 (Ref Range: 9.4-12.4 fL) 10.0 (Ref Range: 9.4-12.4 fL) 9.8 (Ref Range: 9.4-12.4 fL) Neutrophils Percent Auto 59.4 (Ref Range: 45-73 %) 58.4 (Ref Range: 45-73 %) 52.6 (Ref Range: 45-73 %) Imm Gran Pct Auto 0.3 (Ref Range: 0.0-0.4 %) 0.2 (Ref Range: 0.0-0.4 %) 0.4 (Ref Range: 0.0-0.4 %) Lymphocytes Percent Auto 25.0 (Ref Range: 20-40 %) 24.5 (Ref Range: 20-40 %) 29.8 (Ref Range: 20-40 %) Monocytes Percent Auto 8.1 (Ref Range: 2-11 %) 8.1 (Ref Range: 2-11 %) 9.1 (Ref Range: 2-11 %) Eosinophils Percent Auto 6.7 H (Ref Range: 0-4 %) 8.0 H (Ref Range: 0-4 %) 7.5 H (Ref Range: 0-4 %) Basophils Percent Auto 0.5 (Ref Range: 0-2 %) 0.8 (Ref Range: 0-2 %) 0.6 (Ref Range: 0-2 %) NRBC Pct Auto 0.0 (Ref Range: 0.0-0.2 /100WBC) 0.0 (Ref Range: 0.0-0.2 /100WBC) 0.0 (Ref Range: 0.0-0.2 /100WBC) Neutrophils Absolute Auto 4.7 (Ref Range: 2.0-8.3 x10*3/uL) 5.2 (Ref Range: 2.0-8.3 x10*3/uL) 4.2 (Ref Range: 2.0-8.3 x10*3/uL) Imm Gran Abs Auto 0.02 (Ref Range: 0.00-0.03 X10*3/uL) 0.02 (Ref Range: 0.00-0.03 X10*3/uL) 0.03 (Ref Range: 0.00-0.03 X10*3/uL) Lymphocytes Absolute Auto 2.0 (Ref Range: 1.2-4.9 X10*3/uL) 2.2 (Ref Range: 1.2-4.9 X10*3/uL) 2.4 (Ref Range: 1.2-4.9 X10*3/uL) Monocytes Absolute Auto 0.6 (Ref Range: 0.1-1.2 X10*3/uL) 0.7 (Ref Range: 0.1-1.2 X10*3/uL) 0.7 (Ref Range: 0.1-1.2 X10*3/uL) Eosinophils Absolute Auto 0.5 H (Ref Range: 0.0-0.4 X10*3/uL) 0.7 H (Ref Range: 0.0-0.4 X10*3/uL) 0.6 H (Ref Range: 0.0-0.4 X10*3/uL) Basophils Absolute Auto 0.0 (Ref Range: 0.0-0.2 X10*3/uL) 0.1 (Ref Range: 0.0-0.2 X10*3/uL) 0.1 (Ref Range: 0.0-0.2 X10*3/uL) NRBC Abs Auto 0.000 (Ref Range: 0.0-0.012 X10*3/uL) 0.000 (Ref Range: 0.0-0.012 X10*3/uL) 0.000 (Ref Range: 0.0-0.012 X10*3/uL) * Lab:Comprehensive Poston. Leoe l Fast * Collection Date 04/04/2025 10/24/2024 07/10/2024 Collection Time 12:05 PM 10:54 AM 09:30 AM Order Date 04/04/2025 10/24/2024 07/10/2024 Sodium 140 (Ref Range: 135-145 mmol/L) 138 (Ref Range: 135-145 mmol/L) 138 (Ref Range: 135-145 mmol/L) Bilirubin Total 0.9 (Ref Range: 0.0-1.0 mg/dL) 1.7 H (Ref Range: 0.0-1.0 mg/dL) 1.8 H (Ref Range: 0.0-1.0 mg/dL) Aspartate Amino Transferase 40 H (Ref Range: 5-37 U/L) 35 (Ref Range: 5-37 U/L) 34 (Ref Range: 5-37 U/L) Alanine Aminotransferase 54 H (Ref Range: 0-40 U/L) 39 (Ref Range: 0-40 U/L) 38 (Ref Range: 0-40 U/L) Total Protein 7.3 (Ref Range: 6.5-8.0 g/dL) 7.3 (Ref Range: 6.5-8.0 g/dL) 7.2 (Ref Range: 6.5-8.0 g/dL) Albumin Level 4.4 (Ref Range: 3.5-5.0 g/dL) 4.5 (Ref Range: 3.5-5.0 g/dL) 4.5 (Ref Range: 3.5-5.0 g/dL) Alkaline Phosphatase 95 (Ref Range: 39-117 U/L) 89 (Ref Range: 39-117 U/L) 81 (Ref Range: 39-117 U/L) Potassium 4.0 (Ref Range: 3.3-5.1 mmol/L) 3.6 (Ref Range: 3.3-5.1 mmol/L) 4.1 (Ref Range: 3.3-5.1 mmol/L) Chloride 103 (Ref Range: 96-108 mmol/L) 102 (Ref Range: 96-108 mmol/L) 101 (Ref Range: 96-108 mmol/L) Carbon Dioxide 26 (Ref Range: 22-29 mmol/L) 28 (Ref Range: 22-29 mmol/L) 28 (Ref Range: 22-29 mmol/L) Anion Gap 15 (Ref Range: 12-20) 12 (Ref Range: 12-20) 13 (Ref Range: 12-20) Blood Urea Nitrogen 22 H (Ref Range: 9-16 mg/dL) 18 H (Ref Range: 9-16 mg/dL) 15 (Ref Range: 9-16 mg/dL) Creatinine 0.99 (Ref Range: 0.5-1.4 mg/dL) 1.07 (Ref Range: 0.5-1.4 mg/dL) 1.13 (Ref Range: 0.5-1.4 mg/dL) Estimated Glomerular Filt Rate > 60 > 60 > 60 Glucose Fasting 155 H (Ref Range: 60-99 mg/dL) 155 H (Ref Range: 60-99 mg/dL) 140 H (Ref Range: 60-99 mg/dL) Calcium 9.5 (Ref Range: 8.4-10.2 mg/dL) 9.9 (Ref Range: 8.4-10.2 mg/dL) 10.1 (Ref Range: 8.4-10.2 mg/dL) * Lab:Lipid Panel * Collection Date 04/04/2025 10/24/2024 07/10/2024 Collection Time 12:05 PM 10:54 AM 09:30 AM Order Date 04/04/2025 10/24/2024 07/10/2024 Triglycerides 94 (Ref Range: <150 mg/dL) 122 (Ref Range: <150 mg/dL) 146 (Ref Range: <150 mg/dL) Cholesterol 126 (Ref Range: <200 mg/dL) 127 (Ref Range: <200 mg/dL) 116 (Ref Range: <200 mg/dL) LDL Cholesterol Calculated 71 (Ref Range: <100 mg/dL) 68 (Ref Range: <100 mg/dL) 54 (Ref Range: <100 mg/dL) HDL Cholesterol 37 L (Ref Range: >40 mg/dL) 35 L (Ref Range: >40 mg/dL) 33 L (Ref Range: >40 mg/dL) Assessment: * Assessment: 1. C hronic obstructive pulmonary disease, unspecified COPD type - J44.9 (Primary) ?Notes :He is not smoking. He is breathing room air comfortably. He is only short of breath with prolonged exertion. He does not have a productive cough at this time. No change in his regimen was made. 2 . B enign prostatic hyperplasia, unspecified whether lower urinary tract symptoms present - N40.0 N otes :He has been rising from sleep once a night to urinate. We have discussed lifestyle modifications he could make to reduce nocturia. He denies any hematuria or dysuria. 3 . M ixed hyperlipidemia - E78.2 N otes :His total cholesterol is 126 and his lipids are stable. He is compliant with his regimen.? No changes were necessary today. 4 . T ype 2 diabetes mellitus with complication, unspecified whether senior care insulin use - E11.8 N otes :His fasting glucose was 155 with a hemoglobin A1c of 7.8. We are going to utilize weight reduction and a healthy diet low in concentrated sweets combined with regular physical activity to reduce this down to 7.0. He will continue on current medications. 5 . P rimary osteoarthritis of both knees - M17.0 N otes :History knee pain has improved. His myelin at the end of the day. He is conducting all of the activities of daily life without impairment. 6 . C oronary artery disease involving kaw coronary artery of kaw heart without angina pectoris - I25.10 N otes :His coronary artery disease is stable. His pain up-to-date with cardiology. No change in his regimen as needed today. 7 . F ormer smoker - Z87.891 N otes :He is highly motivated not to smoke. We created a plan to prevent relapse in times of stress or illness. 8 . E ssential hypertension - I10 N otes :His blood pressure is currently stable and in his target range at 109/77.. I recommended weight loss and sodium restriction but made no change in his medications. Plan: * Treatment: 2. M ixed hyperlipidemia L AB: PROFILE, FASTING (COMPREHENSIVE METABOLIC) L AB: CBC w DIFF L AB: Lipid Panel L AB: Microalbumin, Random L AB: Hemoglobin A1c 3. 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 O thers Continue Fiber Capsule, 500 MG, as directed, Orally; C ontinue Multi Vitamin Tablet, -, 1 tablet, Orally, Once a day; C ontinue Fish Oil Capsule, 1200 MG, 1 capsule, Orally, Once a day; C ontinue Fluticasone-Salmeterol Aerosol, 45-21 MCG/ACT, USE 2 INHALATIONS TWICE A DAY, Inhalation, Twice a day, 90 days, 36 Gram, Refills 3; C ontinue Lantus SoloStar Solution Pen-injector, 100 UNIT/ML, INJECT 36 UNITS UNDER THE SKIN DAILY; C ontinue Jardiance Tablet, 25 mg, TAKE 1 TABLET DAILY; C ontinue Lisinopril Tablet, 40 mg, TAKE 1 TABLET DAILY; C ontinue Aspirin 81 Tablet Chewable, 81 MG, 1 tablet, Orally, Once a day; C ontinue CoQ10 Capsule, 200 MG, 1 capsule with a meal, Orally, Once a day; C ontinue Sure Comfort Pen Paupack Miscellaneous, 32G X 4 MM, USE WITH INSULIN ONCE DAILY; C ontinue hydroCHLOROthiazide Tablet, 25 mg, TAKE 1 TABLET DAILY., orally, daily; C ontinue Atorvastatin Calcium Tablet, 80 mg, 1 Tablet, Oral, Once a day; S top Fluticasone Propionate Exhaler Suspension, 93 MCG/ACT, 2 sprays (1 spray in each nostril), Nasally, Twice a day, 30 days, 1 Applicator, Notes: 04/11/2025 [facility] called [facility] spoke to Matteo in PA dept the PA was cancelled then transfered me to Faiza in pharmacy and this RX was cancelled corrrect RX already set to the pharmacy; C jarrettinue FreeStyle Lite Test Strip, -, In Vitro; C ontinue Trulicity Solution Auto-injector, 3 MG/0.5ML, INJECT 1 PEN WEEKLY; C ontinue Metoprolol Succinate ER Tablet Extended Release 24 Hour, 25 mg, TAKE 1 TABLET TWICE A DAY. ? Referral To:[facility] Reason:Evaluate and Treat Right Knee Pain * Labs: * L ab: URINE DIP STICK (Collection Date & Time - 04/10/2025 03:12 PM) Value Reference Range S G 1.000 1.005 - 1.025 * p H 5.0 5.0 - 9.0 * L EU neg Negative - * N IT neg Negative - * P RO 15 Negative - Trace * G PRICE 2000 Negative - * K ET neg Negative - * U BG 0.2 0.1 - 1.8 * B IL neg 0.2 - 1.3 * B LD neg Negative - * M enstrating N/A * Procedure Codes: 8 1002 URINE-NO MICRO * Preventive Medicine: COPD Care Plan: P atient Lifestyle Goals R elieve symptoms and improve quality of life, Reduce number of ED and hospitalizations, Be able to be more active with friends and family. T reatment Goals E xercise to help whole body, including lungs, Eat a nutritious diet and increase water consumption to 6-8 glasses a day. B arriers n o barriers. S elf-Managment Goals G et an air purifier for the rooms you are in the most, Eat a healthy diet, Exercise at least 3xs per week for at least 30 mins.? Counseling: C are goal follow-up plan: Counseling for abnormal BMI given Y es Above Normal BMI Follow-up D ietary management education, guidance, and counseling S moking/Tobacco Use Patient counseled on the dangers of tobacco use and urged to quit. 0 04/10/2025 DM Care Plan: P atient Lifestyle Goals P atient wants to be able to manage diabetes without too much effort. T reatment Goals H bA1C < 7.0, Blood Sugars less than < 115. B arriers n o barriers. S elf-Managment Goals W ork on weight loss, with a goal of losing 1 lb per week. * Follow Up: 3 Months (Reason: OV) * Images: * Sign off status: Completed true * Provider: Luis Benitez MD Date: 0 04/10/2025 Generated for Blaine dowell/Elder/eTransmitting on: 1 01/13/2025 11:08 AM EST History and Physical Notes * HPI (History of Present Illness) Category Sub-Category Detail Notes Depression Screening PHQ-9 Little inte rest or pleasure in doing things: Not at all Feeling down, depressed, or hopeless: No t at all Trouble falling or staying a sleep, or sleeping too much: More than half the days Feeling tired or having little energy: [...] some way: Not at all Total Score: 3 Interpretation: Minimal Depression Fall Risk Screening Fall History Have you had any falls with injury in the past year?: No Have you had two or more falls in the year?: No Fall Risk Assessment:: No falls in the year SDOH Questions SDOH Questions In the past year have you been worried about losing your housing?: No In the past year have you or any family members you live with been unable to get any of the following when it was really needed? Check all that apply:: None Consultation Request Notes Referral Date Referring Provider Referred Provider Not syed 04/10/2025 Nabil Benitez Ort [facility]) Evaluate and Treat Right Knee Pain
--- OUTSIDE RECORDS SUMMARY | 2025-04-17 11:06 | XMS_ITS ---
Author Organization Nabil Benitez III, MD Address [address] [place] [address] Care Team Providers Care Rn Employee Health Name Role Phone Dr. Nabil Benitez III Primary Care Provider Reason For Referral Reason nasal polyps with no se bleeds Diagnosis 1 Nasal polyps (J33.9) Referral Organization Nabil Benitez III, MD Referring Provider First Name Nabil Referring Provider Last Name Eli Referring Provider Speciality Internal M edicine Referred Provider [facility], [facility] Referred Provider Specialty Otolaryngolo gy General Notes Arminda Redding CMA 04/18 11:46:42 AM > ref/demo/progress note faxed to [facility] pt made aware of this and told to call the office to set up appt, Arminda Redding CMA 05/02/2025 02:58:45 PM > Called ENT they made patient appt for 01/18/2026 at 2:30pm arrival with 3:00pm appointment with Dr Fara Rosen [address] [place] [address] information called and mailed to patient Referral Priority Routine Referral Appointment Date 01/18/2026 REASON FOR VISIT Message Social History Sex Assigned At : Social History Observation Description Sex Assigned At Male Encounters Encounter Location Date Provider Diagnosis Nabil Benitez III, MD [address] [place] [address] [place] [address] 04/17/2025 Nabil Benitez Plan Of Treatment Referrals Referral Date Details 04/18/2025 04/18/2025, nasal po lyps with nose bleeds, of [facility], [facility] Next Appt Details Provider Name:Nabil Kimberly Eli , 11/20/2025 10:45:00 AM, [address] [place] [address] [address], [place], [phone], Provider Name:Nabil Harris Eli , 04/12/2026 03:00:00 PM, [address] [place] [address] [address], [place], [phone], Progress Notes * Jose Armando MESSINADOB: [birth year] (74 yo M)Acc No.[id number]:04/17/2025 Patient: Jose Armando ISLAS :1950 A ge:74 Y S ex:Male Address:[address] [place] [address] Subjective: * Chief Complaints: * M essage * Medical History: * Surgical History: * Hospitalization/Major Diagno stic Procedure: * Medications: Objective: * Vitals: * Physical Examination: Assessment: Plan: * Treatment: * Procedure Codes: * true * Date: Generated for Blaine dowell/Elder/eTphusmitting on: 01/13/2025 11:07 AM EST Consultation Request Notes Referral Date Referring Provider Referred Provider Not es 04/18/2025 Nabil Benitez [facility] [place] nasal polyps with nose bleeds
--- OUTSIDE RECORDS SUMMARY | 2025-07-11 05:30 | XMS_ITS ---
Author Organization Nabil Benitez III, MD Address [address] [place] [address] Care Team Providers Care Director Medicare Sales Name Role Phone Dr. Nabil Benitez III Primary Care Provider Allergies Allergen (clinical drug ingredient) Drug/Non Drug Allergy documented on EMR Reaction Allergy Type Onset Date Status Dust Mites Unknown Allergy Active Cat dander Cat Dander Unknown Allergy Active metformin Metformin HCl Unknown Drug Allergy Act lauren REASON FOR VISIT Benign prostatic hypertrophy, COPD, Arthritis both knees, Coronary artery disease, Hypertension, Hyperlipidemia, Diabetes Medications Medication SIG (Take, Route, Frequency, Duration) Notes Start Date End Date Status Aspirin 81 81 MG 1 tablet Orally Once a day Active Fluticasone-Salmeterol 45-21 MCG/ACT USE 2 INHALATIONS TWICE A DAY Inhalation Twice a day Active Multi Vitamin - 1 tablet Orally Once a day Active Fish Oil 1200 MG 1 capsule Orally Onc e a day Active Fiber 500 MG as directed Orally Active Lisinopril 40 mg 1 tablet orally once a day Active Jardiance 25 mg TAKE 1 TABLET DAILY Active Lantus SoloStar 100 UNIT/ML INJECT 36 UN ITS UNDER THE SKIN DAILY Active Trulicity 3 MG/0.5ML INJECT 1 PEN WEEKLY Active Metoprolol Succinate ER 25 mg TAKE 1 TAB LET TWICE A DAY Active Atorvastatin Calcium 80 mg 1 Tablet Oral Once a day Active FreeStyle Lite Test - In Vitro Active Sure Comfort Pen [place] 32G X 4 MM USE WITH INSULIN ONCE DAILY Active hydroCHLOROthiazide 25 mg TAKE 1 TABLET DAILY. orally daily Active CoQ10 200 MG 1 capsule with a amadeo l Orally Once a day Active Social History [...] Non-User Ex-cigaret te smoker Vital Signs Temperature 99.0 degrees Fahrenheit 07/11/20 25 Blood pressure systolic 128 mm Hg 07/11/20 25 Blood pressure diastolic 82 mm Hg 025 Heart Rate 68 /min 07/11/2025 Height 72 in 07/11/2025 Weight 207 lbs 07/11/2025 BMI 28.07 kg/m2 07/11/2025 Encounters Encounter Location Date Provider Diagnosis Nabil Benitez III, MD [address] [place] [address] [place] [address] 07/11/2025 Nabil Benitez Chronic obstructive pulmonary disease, unspecified COPD type J44.9 ; Benign prostatic hyperplasia, unspecified whether lower urinary tract symptoms present N40.0 ; Essential hypertension I10 ; Former smoker Z87.891 ; Coronary artery disease involving pamunkey coronary artery of pamunkey heart without angina pectoris I25.10 ; Type 2 diabetes mellitus with complication, unspecified whether shelter insulin use E11.8 ; Primary osteoarthritis of both knees M17.0 and Overweight E66.3 Assessments Encounter Date Diagnosis (ICD Code) Assessment Notes Treat ment Notes Treatment Clinical Notes 07/11/2025 Chronic obstructive pulmonary disease, unspecified COPD type (ICD-10 - J44.9) He is not smoking. He is breathing room air comfortably. He is only short of breath with prolonged exertion. He does not have a productive cough at this time. No change in his regimen was made. 07/11/2025 Benign prostatic hyperplasia, unspecified whether lower urinary tract symptoms present (ICD-10 - N40.0) He has been rising from sleep once a night to urinate. We have discussed lifestyle modifications he could make to reduce nocturia. He denies any hematuria or dysuria. 07/11/2025 Essential hypertension (ICD-10 - I10) His blood pressure is currently stable and in his target range. I recommended weight loss and sodium restriction but made no change in his medications. 07/11/2025 Former smoker (ICD-1 0 - Z87.891) He is highly motivated not to smoke. We created a plan to prevent relapse in times of stress or illness. 07/11/2025 Coronary artery disease involving pamunkey coronary artery of pamunkey heart without angina pectoris (ICD-10 - I25.10) His coronary artery disease is stable. His pain up-to-date with cardiology. No change in his regimen as needed today. 07/11/2025 Type 2 diabetes mellitus with complication, unspecified whether buttermaker insulin use (ICD-10 - E11.8) His fasting glucose was 174 with a hemoglobin A1c of 8.1. We are going to utilize weight reduction and a healthy diet low in concentrated sweets combined with regular physical activity to reduce this down to 7.0. He will continue on current medications.I have increased his Lantus insulin to 40 units daily. He is going to return in 2 weeks for a fasting glucose. We will aggressively try to control his diabetes better. Diet will be a major factor in this. 07/11/2025 Primary osteoarthritis of both knees (ICD-10 - M17.0) History knee pain has improved. His myelin at the end of the day. He is conducting all of the activities of daily life without impairment. 07/11/2025 Overweight (ICD-10 - E66.3) He remains in the overweight range but has lost 3 pounds. We reviewed his weight loss strategy. We made a plan to lose weight at a rate of one half of a pound per week. Plan Of Treatment Medication Medication Name Sig Start Date Stop Date Notes Aspirin 81 81 MG 1 tablet Orally Once a day Fluticasone-Salmeterol 45-21 MCG/ACT USE 2 INHALATIONS TWICE A DAY Inhalation Twice a day Multi Vitamin - 1 tablet Orally Once a day Fish Oil 1200 MG 1 capsule Orally Onc e a day Fiber 500 MG as directed Orally Lisinopril 40 mg 1 tablet orally once a day Jardiance 25 mg TAKE 1 TABLET DAILY Lantus SoloStar 100 UNIT/ML INJECT 36 UN ITS UNDER THE SKIN DAILY Trulicity 3 MG/0.5ML INJECT 1 PEN WEEKLY Metoprolol Succinate ER 25 mg TAKE 1 TABLET TWICE A DAY Atorvastatin Calcium 80 mg 1 Tablet Oral Once a day FreeStyle Lite Test - In Vitro Sure Comfort Pen [place] 32G X 4 MM USE WITH INSULIN ONCE DAILY hydroCHLOROthiazide 25 mg TAKE 1 TABLET DAILY. orally daily CoQ10 200 MG 1 capsule with a amadeo l Orally Once a day Next Appt Details Follow Up: 2 Weeks, Reason: OV Provider Name:Nabil Benitez , 11/20/2025 10:45:00 AM, [address] [place] [address] [place], [place], [address], Provider Name:Nabil Benitez , 04/12/2026 03:00:00 PM, [address], [address], Progress Notes * Jose Armando MESSINADOB: [birth year] (74 yo M)Acc No.[id number]:07/11/2025 Progress Notes Patient: Jose Armando ISLAS Provider: Luis Benitez MD :1950 A ge:74 Y S ex:Male Date:07/11/2025 Address:[address] [place] [address] Subjective: * Chief Complaints: * B enign prostatic hypertrophyCOPDArthritis both kneesCoronary artery diseaseHypertensionHyperlipidemiaDiabetes * HPI: C OVID-19 Screening: Diogo richard returns for medical management of his metabolic syndrome. He says his breathing is satisfactory today and he has little trouble during pollen season. He does not have a CPAP device [place] does not want one sounded useless. He recently saw Dr. Mark Alvarado at [facility] who told that he needed a right knee replacement. He agrees and this has been scheduled for August 24, 2025. The surgeon said he is A1c should be below 8.0 for successful surgery. His A1c is now 8.1. I have increased his Lantus from 36-40 units daily and advised him to lose weight and aggressively and consume a diet low in concentrated sweets. We discussed the elements of a diabetic diet. He is going to try to them and 8 to copious amounts of ice cream and carbohydrates and candy. He has been consuming. Surgery will be done at the [facility]. Questions H ave you had any new onset fever, chills, cough, congestion, sore throat, shortness of breath, muscle aches? N o * ROS: G eneral/Constitutional: pain o nly normal aches and pains. C hills d enies.?Fatigue a dmits. F ever d enies. E [...] smoking 20 years ago. 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 A [...] Aerosol USE 2 INHALATIONS TWICE A DAY Inhalation Twice a day Aspirin 81 81 MG Tablet Chewable 1 tablet Orally Once a day CoQ10 200 MG Capsule 1 capsule with a meal Orally Once a day Sure Comfort Pen [place] 32G X 4 MM Miscellaneous USE WITH INSULIN ONCE DAILY hydroCHLOROthiazide 25 mg Tablet TAKE 1 TABLET DAILY. orally daily Atorvastatin Calcium 80 mg Tablet 1 Tablet Oral Once a day FreeStyle Lite Test - Strip In Vitro Trulicity 3 MG/0.5ML Solution Auto-injector INJECT 1 PEN WEEKLY Metoprolol Succinate ER 25 mg Tablet Extended Release 24 Hour TAKE 1 TABLET TWICE A DAY Jardiance 25 mg Tablet TAKE 1 TABLET DAILY Lantus SoloStar 100 UNIT/ML Solution Pen-injector INJECT 36 UNITS UNDER THE SKIN DAILY Lisinopril 40 mg Tablet 1 tablet orally once a day Medication List reviewed and reconciled with the patientTaking Fiber 500 MG Capsule as directed Orally Taking Multi Vitamin - Tablet 1 tablet Orally Once a day Taking Fish Oil 1200 MG Capsule 1 capsule Orally Once a day Taking Fluticasone-Salmeterol 45-21 MCG/ACT Aerosol USE 2 INHALATIONS TWICE A DAY Inhalation Twice a day Taking Aspirin 81 81 MG Tablet Chewable 1 tablet Orally Once a day Taking CoQ10 200 MG Capsule 1 capsule with a meal Orally Once a day Taking Sure Comfort Pen [place] 32G X 4 MM Miscellaneous USE WITH INSULIN ONCE DAILY Taking hydroCHLOROthiazide 25 mg Tablet TAKE 1 TABLET DAILY. orally daily Taking Atorvastatin Calcium 80 mg Tablet 1 Tablet Oral Once a day Taking FreeStyle Lite Test - Strip In Vitro Taking Trulicity 3 MG/0.5ML Solution Auto-injector INJECT 1 PEN WEEKLY Taking Metoprolol Succinate ER 25 mg Tablet Extended Release 24 Hour TAKE 1 TABLET TWICE A DAY Taking Jardiance 25 mg Tablet TAKE 1 TABLET DAILY Taking Lantus SoloStar 100 UNIT/ML Solution Pen-injector INJECT 36 UNITS UNDER THE SKIN DAILY Taking Lisinopril 40 mg Tablet 1 tablet orally once a day Medication List reviewed and reconciled with the patient * Allergies: M etformin HClCat DanderDust Mitesno[Allergies Verified] Objective: * Vitals: H t: 72, Wt:207, BMI:28.07, BP:128/82, HR:68, Temp:99.0, Wt-k.89. * P ast Orders: Lab:Lipid Panel * Collection Date 07/05/2025 04/04/2025 10/24/2024 Collection Time 10:50 AM 12:05 PM 10:54 AM Order Date 07/05/2025 04/04/2025 10/24/2024 Triglycerides 145 (Ref Range: <150 mg/dL) 94 (Ref Range: <150 mg/dL) 122 (Ref Range: <150 mg/dL) Cholesterol 135 (Ref Range: <200 mg/dL) 126 (Ref Range: <200 mg/dL) 127 (Ref Range: <200 mg/dL) LDL Cholesterol Calculated 73 (Ref Range: <100 mg/dL) 71 (Ref Range: <100 mg/dL) 68 (Ref Range: <100 mg/dL) HDL Cholesterol 33 L (Ref Range: >40 mg/dL) 37 L (Ref Range: >40 mg/dL) 35 L (Ref Range: >40 mg/dL) * Lab:Comprehensive [place]. Pane l Fast * Collection Date 07/05/2025 04/04/2025 10/24/2024 Collection Time 10:50 AM 12:05 PM 10:54 AM Order Date 07/05/2025 04/04/2025 10/24/2024 Sodium 138 (Ref Range: 135-145 mmol/L) 140 (Ref Range: 135-145 mmol/L) 138 (Ref Range: 135-145 mmol/L) Bilirubin Total 1.4 H (Ref Range: 0.0-1.0 mg/dL) 0.9 (Ref Range: 0.0-1.0 mg/dL) 1.7 H (Ref Range: 0.0-1.0 mg/dL) Aspartate Amino Transferase 38 H (Ref Range: 5-37 U/L) 40 H (Ref Range: 5-37 U/L) 35 (Ref Range: 5-37 U/L) Alanine Aminotransferase 45 H (Ref Range: 0-40 U/L) 54 H (Ref Range: 0-40 U/L) 39 (Ref Range: 0-40 U/L) Total Protein 7.2 (Ref Range: 6.5-8.0 g/dL) 7.3 (Ref Range: 6.5-8.0 g/dL) 7.3 (Ref Range: 6.5-8.0 g/dL) Albumin Level 4.7 (Ref Range: 3.5-5.0 g/dL) 4.4 (Ref Range: 3.5-5.0 g/dL) 4.5 (Ref Range: 3.5-5.0 g/dL) Alkaline Phosphatase 82 (Ref Range: 39-117 U/L) 95 (Ref Range: 39-117 U/L) 89 (Ref Range: 39-117 U/L) Potassium 4.1 (Ref Range: 3.3-5.1 mmol/L) 4.0 (Ref Range: 3.3-5.1 mmol/L) 3.6 (Ref Range: 3.3-5.1 mmol/L) Chloride 103 (Ref Range: 96-108 mmol/L) 103 (Ref Range: 96-108 mmol/L) 102 (Ref Range: 96-108 mmol/L) Carbon Dioxide 26 (Ref Range: 22-29 mmol/L) 26 (Ref Range: 22-29 mmol/L) 28 (Ref Range: 22-29 mmol/L) Anion Gap 13 (Ref Range: 12-20) 15 (Ref Range: 12-20) 12 (Ref Range: 12-20) Blood Urea Nitrogen 20 H (Ref Range: 9-16 mg/dL) 22 H (Ref Range: 9-16 mg/dL) 18 H (Ref Range: 9-16 mg/dL) Creatinine 1.02 (Ref Range: 0.5-1.4 mg/dL) 0.99 (Ref Range: 0.5-1.4 mg/dL) 1.07 (Ref Range: 0.5-1.4 mg/dL) Estimated Glomerular Filt Rate > 60 > 60 > 60 Glucose Fasting 174 H (Ref Range: 60-99 mg/dL) 155 H (Ref Range: 60-99 mg/dL) 155 H (Ref Range: 60-99 mg/dL) Calcium 9.6 (Ref Range: 8.4-10.2 mg/dL) 9.5 (Ref Range: 8.4-10.2 mg/dL) 9.9 (Ref Range: 8.4-10.2 mg/dL) * Lab:Complete Blood Count Aut o Diff * Collection Date 07/05/2025 04/04/2025 10/24/2024 Collection Time 10:50 AM 12:05 PM 10:54 AM Order Date 07/05/2025 04/04/2025 10/24/2024 White Blood Count 7.9 (Ref Range: 4.8-10.8 X10*3/uL) 8.0 (Ref Range: 4.8-10.8 X10*3/uL) 8.9 (Ref Range: 4.8-10.8 X10*3/uL) Red Blood Count 5.51 (Ref Range: 4.60-5.80 X10*6/uL) 5.55 (Ref Range: 4.60-5.80 X10*6/uL) 5.69 (Ref Range: 4.60-5.80 X10*6/uL) Hemoglobin 16.9 (Ref Range: 14.0-18.0 g/dl) 16.7 (Ref Range: 14.0-18.0 g/dl) 17.1 (Ref Range: 14.0-18.0 g/dl) Hematocrit 49.0 (Ref Range: 42.0-52.0 %) 49.7 (Ref Range: 42.0-52.0 %) 50.5 (Ref Range: 42.0-52.0 %) Mean Corpuscular Volume 88.9 (Ref Range: 80.0-98.0 fL) 89.5 (Ref Range: 80.0-98.0 fL) 88.8 (Ref Range: 80.0-98.0 fL) Mean Corpuscular Hemoglobin 30.7 (Ref Range: 27.0-33.0 pg) 30.1 (Ref Range: 27.0-33.0 pg) 30.1 (Ref Range: 27.0-33.0 pg) Mean Corpuscular HGB Conc 34.5 (Ref Range: 31.0-36.0 g/dl) 33.6 (Ref Range: 31.0-36.0 g/dl) 33.9 (Ref Range: 31.0-36.0 g/dl) Red Cell Distribution Width 13.9 (Ref Range: 11.0-16.0 %) 13.4 (Ref Range: 11.0-16.0 %) 13.4 (Ref Range: 11.0-16.0 %) Platelet Count 158 L (Ref Range: 160-400 X10*3/uL) 161 (Ref Range: 160-400 X10*3/uL) 155 L (Ref Range: 160-400 X10*3/uL) Mean Platelet Volume 9.8 (Ref Range: 9.4-12.4 fL) 10.0 (Ref Range: 9.4-12.4 fL) 10.0 (Ref Range: 9.4-12.4 fL) Neutrophils Percent Auto 59.3 (Ref Range: 45-73 %) 59.4 (Ref Range: 45-73 %) 58.4 (Ref Range: 45-73 %) Imm Gran Pct Auto 0.3 (Ref Range: 0.0-0.4 %) 0.3 (Ref Range: 0.0-0.4 %) 0.2 (Ref Range: 0.0-0.4 %) Lymphocytes Percent Auto 23.2 (Ref Range: 20-40 %) 25.0 (Ref Range: 20-40 %) 24.5 (Ref Range: 20-40 %) Monocytes Percent Auto 8.0 (Ref Range: 2-11 %) 8.1 (Ref Range: 2-11 %) 8.1 (Ref Range: 2-11 %) Eosinophils Percent Auto 8.4 H (Ref Range: 0-4 %) 6.7 H (Ref Range: 0-4 %) 8.0 H (Ref Range: 0-4 %) Basophils Percent Auto 0.8 (Ref Range: 0-2 %) 0.5 (Ref Range: 0-2 %) 0.8 (Ref Range: 0-2 %) NRBC Pct Auto 0.0 (Ref Range: 0.0-0.2 /100WBC) 0.0 (Ref Range: 0.0-0.2 /100WBC) 0.0 (Ref Range: 0.0-0.2 /100WBC) Neutrophils Absolute Auto 4.7 (Ref Range: 2.0-8.3 x10*3/uL) 4.7 (Ref Range: 2.0-8.3 x10*3/uL) 5.2 (Ref Range: 2.0-8.3 x10*3/uL) Imm Gran Abs Auto 0.02 (Ref Range: 0.00-0.03 X10*3/uL) 0.02 (Ref Range: 0.00-0.03 X10*3/uL) 0.02 (Ref Range: 0.00-0.03 X10*3/uL) Lymphocytes Absolute Auto 1.8 (Ref Range: 1.2-4.9 X10*3/uL) 2.0 (Ref Range: 1.2-4.9 X10*3/uL) 2.2 (Ref Range: 1.2-4.9 X10*3/uL) Monocytes Absolute Auto 0.6 (Ref Range: 0.1-1.2 X10*3/uL) 0.6 (Ref Range: 0.1-1.2 X10*3/uL) 0.7 (Ref Range: 0.1-1.2 X10*3/uL) Eosinophils Absolute Auto 0.7 H (Ref Range: 0.0-0.4 X10*3/uL) 0.5 H (Ref Range: 0.0-0.4 X10*3/uL) 0.7 H (Ref Range: 0.0-0.4 X10*3/uL) Basophils Absolute Auto 0.1 (Ref Range: 0.0-0.2 X10*3/uL) 0.0 (Ref Range: 0.0-0.2 X10*3/uL) 0.1 (Ref Range: 0.0-0.2 X10*3/uL) NRBC Abs Auto 0.000 (Ref Range: 0.0-0.012 X10*3/uL) 0.000 (Ref Range: 0.0-0.012 X10*3/uL) 0.000 (Ref Range: 0.0-0.012 X10*3/uL) * Lab:Hemoglobin A1c * Collection Date 07/05/2025 04/04/2025 10/24/2024 Collection Time 10:50 AM 12:05 PM 10:54 AM Order Date 07/05/2025 04/04/2025 10/24/2024 Hemoglobin A1c % 8.1 H (Ref Range: <6.0 %) 7.8 H (Ref Range: <6.0 %) 7.5 H (Ref Range: <6.0 %) Estimated Average Glucose 186 (Ref Range: mg/dL) 177 (Ref Range: mg/dL) 169 (Ref Range: mg/dL) * Lab:Microalbumin, Random * Collection Date 07/05/2025 04/04/2025 10/24/2024 Collection Time 10:50 AM 12:05 PM 10:54 AM Order Date 07/05/2025 04/04/2025 10/24/2024 Creatinine Urine 105.99 (Ref Range: mg/dL) 72.59 (Ref Range: mg/dL) 115.34 (Ref Range: mg/dL) Microalbumin Urine 16.0 (Ref Range: mg/L) 16.0 (Ref Range: mg/L) 13.0 (Ref Range: mg/L) Microalbum Creatinine Ratio Ur 15.0 (Ref Range: <30 ug/mg cr) 22.0 (Ref Range: <30 ug/mg cr) 11.2 (Ref Range: <30 ug/mg cr) * Lab:URINE DIP STICK * Collection Date 04/10/2025 04/07/2024 04/02/2023 Collection Time 03:12 PM Order Date 04/10/2025 04/07/2024 04/02/2023 SG 1.000 (Ref Range: 1.005 - 1.025) 1.020 (Ref Range: 1.005 - 1.025) 1.020 (Ref Range: 1.005 - 1.025) pH 5.0 (Ref Range: 5.0 - 9.0) 5.0 (Ref Range: 5.0 - 9.0) 5.0 (Ref Range: 5.0 - 9.0) BRETT neg (Ref Range: Negative -) Negative (Ref Range: Negative -) Negative (Ref Range: Negative -) NIT neg (Ref Range: Negative -) Negative (Ref Range: Negative -) Negative (Ref Range: Negative -) PRO 15 (Ref Range: Negative - Trace) 15 (Ref Range: Negative - Trace) 15 (Ref Range: Negative - Trace) GLU 2000 (Ref Range: Negative -) 1000 (Ref Range: Negative -) 2000 (Ref Range: Negative -) KET neg (Ref Range: Negative -) Negative (Ref Range: Negative -) 5 (Ref Range: Negative -) UBG 0.2 (Ref Range: 0.1 - 1.8) 0.2 (Ref Range: 0.1 - 1.8) 0.2 (Ref Range: 0.1 - 1.8) CHANDLER neg (Ref Range: 0.2 - 1.3) Negative (Ref Range: 0.2 - 1.3) Negative (Ref Range: 0.2 - 1.3) BLD neg (Ref Range: Negative -) Negative (Ref Range: Negative -) Negative (Ref Range: Negative -) Menstrating N/A NR N/A * Examination: G eneral Examination: GENERAL APPEARANCE: p leasant, well nourished, well developed, in no acute distress, calm and relaxed: overweight: : man. HEAD: a traumatic, normocephalic. EYES: e [...] normal, no s3, or vascular bruits. LUNGS: : diminished breath sounds throughout. BREASTS: no masses palpable bilaterally. ABDOMEN: b owel sounds normal, no ascites, no organomegaly, no mass: overweight. RECTAL EXAM: n ot examined. MUSCULOSKELETAL: e xtremities unremarkable, no clubbing, cyanosis or edema. PERIPHERAL PULSES: n ormal. NEUROLOGIC: a lert and oriented, cranial nerves 2-12 grossly intact, deep tendon reflexes 2+ symmetrical, motor strength normal upper and lower extremities, sensory exam intact. PSYCH: a lert, oriented: thought process logical, goal directed: speech clear: cognitive function intact. Assessment: * Assessment: 1. C hronic obstructive [...] denies any hematuria or dysuria. 3 . E ssential hypertension - I10 N otes :His blood pressure is currently stable and in his target range. I recommended weight loss and sodium restriction but made no change in his medications. 4 . F ormer smoker - Z87.891 N otes :He is highly motivated not to smoke. We created a plan to prevent relapse in times of stress or illness. 5 . C oronary artery disease involving pamunkey coronary artery of pamunkey heart without angina pectoris - I25.10 N otes :His coronary artery disease is stable. His pain up-to-date with cardiology. No change in his regimen as needed today. 6 . T ype 2 diabetes mellitus with complication, unspecified whether shelter insulin use - E11.8 N otes :His fasting glucose was 174 with a hemoglobin A1c of 8.1. We are going to utilize weight reduction and a healthy diet low in concentrated sweets combined with regular physical activity to reduce this down to 7.0. He will continue on current medications.I have increased his Lantus insulin to 40 units daily. He is going to return in 2 weeks for a fasting glucose. We will aggressively try to control his diabetes better. Diet will be a major factor in this. 7 . P rimary osteoarthritis of both knees - M17.0 N otes :History knee pain has improved. His myelin at the end of the day. He is conducting all of the activities of daily life without impairment. 8 . O verweight - E66.3 N otes :He remains in the overweight range but has lost 3 pounds. We reviewed his weight loss strategy. We made a plan to lose weight at a rate of one half of a pound per week. Plan: * Treatment: * Procedure Codes: * Preventive Medicine: Counseling: C are goal follow-up plan: Counseling for abnormal BMI given Y es Above Normal BMI Follow-up D ietary management education, guidance, and counseling, Dietary needs education S moking/Tobacco Use Patient counseled on the dangers of tobacco use and urged to quit. 0 07/11/2025 DM Care Plan: P atient Lifestyle Goals P atient wants to be able to manage diabetes without too much effort. T reatment Goals H bA1C < 7.0, Blood Sugars less than < 115. B arriers n o barriers. S elf-Managment Goals W ork on weight loss, with a goal of losing 1 lb per week. COPD Care Plan: P atient Lifestyle Goals B e able to be more active with friends and family, Reduce number of ED and hospitalizations, Relieve symptoms and improve quality of life. T reatment Goals E at a nutritious diet and increase water consumption to 6-8 glasses a day, Eat 4- 5 small meals throughout the day. B arriers n o barriers. S elf-Managment Goals G et an air purifier for the rooms you are in the most, Eat a healthy diet. * Follow Up: 2 Weeks (Reason: OV) * Images: * Sign off status: Completed true * Provider: Luis Benitez MD Date: 0 07/11/2025 Generated for Blaine dowell/Elder/eTransmitting on: 1 01/13/2025 11:08 AM EST History and Physical Notes * HPI (History of Present Illness) Category Sub-Category Detail Notes COVID-19 Screening Questions Have you had any new onset fever, chills, cough, congestion, sore throat, shortness of breath, muscle aches?: No Examination Category Sub-Category Detail Notes General Examination GENERAL APPEARANCE: pleasant , well nourished, well developed, in no acute distress, calm and relaxed: overweight: : man HEAD: atraumatic, normocep halic EYES: eomi, perrla, anicte deandra, conjugate EARS: normal NOSE: septum intact NECK/THYROID: no jugular venous di stention, no carotid bruit, thyroid normal HEART: no clicks, gallops, murmurs, or rubs, regular rhythm, S1, S2 normal, no s3, or vascular bruits LUNGS: : diminished breath sounds throughout ABDOMEN: bowel sounds normal, no ascites, no organomegaly, no mass: overweight NEUROLOGIC: alert and oriented, cranial nerves 2-12 grossly intact, deep tendon reflexes 2+ symmetrical, motor strength normal upper and lower extremities, sensory exam intact SKIN: no suspicious lesion s, anicteric PERIPHERAL PULSES: normal BREASTS: no masses palpable b ilaterally MUSCULOSKELETAL: extremities unremark able, no clubbing, cyanosis or edema LYMPH NODES: no enlarged lymph no eleno,spleen normal RECTAL EXAM: not examined PSYCH: alert, oriented: tho ught process logical, goal directed: speech clear: cognitive function intact ORAL CAVITY: normal, unremarkable
--- OUTSIDE RECORDS SUMMARY | 2025-08-03 04:00 | XMS_ITS ---
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 Nabil Benitez III Primary Care Provider Allergies Allergen (clinical drug ingredient) Drug/Non Drug Allergy documented on EMR Reaction Allergy Type Onset Date Status Dust Mites Unknown Allergy Active Cat dander Cat Dander Unknown Allergy Active metformin Metformin HCl Unknown Drug Allergy Act lauren REASON FOR VISIT Pending right knee replacement, Benign prostatic hypertrophy, COPD, Hyperlipidemia, Hypertension, Coronary artery disease, Diabetes Medications Medication SIG (Take, Route, Frequency, Duration) Notes Start Date End Date Status Metoprolol Succinate ER 25 mg TAKE 1 TAB LET TWICE A DAY Active FreeStyle Lite Test - In Vitro Active Trulicity 3 MG/0.5ML INJECT 1 PEN WEEKLY Active hydroCHLOROthiazide 25 mg TAKE 1 TABLET DAILY. orally daily Active Atorvastatin Calcium 80 mg 1 Tablet Oral Once a day Active Aspirin 81 81 MG 1 tablet Orally Once a day Active Fish Oil 1200 MG 1 capsule Orally Onc e a day Active Fluticasone-Salmeterol 45-21 MCG/ACT USE 2 INHALATIONS TWICE A DAY Inhalation Twice a day Active CoQ10 200 MG 1 capsule with a amadeo l Orally Once a day Active Sure Comfort Pen Perry 32G X 4 MM USE WITH INSULIN ONCE DAILY Active Fiber 500 MG as directed Orally Active Multi Vitamin - 1 tablet Orally Once a day Active Jardiance 25 mg TAKE 1 TABLET DAILY Active Lantus SoloStar 100 UNIT/ML INJECT 36 UN ITS UNDER THE SKIN DAILY Active Lisinopril 40 mg 1 tablet orally once a day Active Social History Tobacco Use: [...] Non-User Ex-cigaret te smoker Vital Signs Temperature 98.2 degrees Fahrenheit 08/03/20 25 Blood pressure systolic 118 mm Hg 08/03/20 25 Blood pressure diastolic 79 mm Hg 025 Heart Rate 72 /min 08/03/2025 Respiratory Rate 16 /min 08/03/2025 Height 72 in 08/03/2025 Weight 209 lbs 08/03/2025 BMI 28.34 kg/m2 08/03/2025 Oximetry 94 % 08/03/2025 Encounters Encounter Location Date Provider Diagnosis Nabil Benitez III, MD [address] [place] [address] [place] [address] 08/03/2025 Nabil Benitez Former smoker Z87.89 1 ; Chronic obstructive pulmonary disease, unspecified COPD type J44.9 ; Benign prostatic hyperplasia, unspecified whether lower urinary tract symptoms present N40.0 ; Essential hypertension I10 ; Coronary artery disease involving [place] coronary artery of [place] heart without angina pectoris I25.10 ; Primary osteoarthritis of both knees M17.0 ; Overweight E66.3 ; Mixed hyperlipidemia E78.2 and Type 2 diabetes mellitus with complication, 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 We created a plan to prevent relapse in times of stress or illness. 08/03/2025 Chronic obstructive pulmonary disease, unspecified COPD type (ICD-10 - J44.9) He is not smoking. He is breathing room air comfortably. He is only short of breath with prolonged exertion. He does not have a productive cough at this time. No change in his regimen was made. 08/03/2025 Benign prostatic hyperplasia, unspecified whether lower urinary tract symptoms present (ICD-10 - N40.0) He has been rising from sleep once a night to urinate. We have discussed lifestyle modifications he could make to reduce nocturia. He denies any hematuria or dysuria. 08/03/2025 Essential hypertension (ICD-10 - I10) His blood pressure is currently stable and in his target range. I recommended weight loss and sodium restriction but made no change in his medications. 08/03/2025 Coronary artery disease involving [place] coronary artery of [place] heart without angina pectoris (ICD-10 - I25.10) His coronary artery disease is stable. His pain up-to-date with cardiology. No change in his regimen as needed today. 08/03/2025 Primary osteoarthritis of both knees (ICD-10 - M17.0) History knee pain has improved. His myelin at the end of the day. He is conducting all of the activities of daily life without impairment. 08/03/2025 Overweight (ICD-10 - E66.3) He remains in the overweight range but has lost 3 pounds. We reviewed his weight loss strategy. We made a plan to lose weight at a rate of one half of a pound per week. 08/03/2025 Mixed hyperlipidemia (ICD-10 - E78.2) His total cholesterol is 126 and his lipids are stable. He is compliant with his regimen. No changes were necessary today. 08/03/2025 Type 2 diabetes mellitus with complication, unspecified whether chcf insulin use (ICD-10 - E11.8) His fasting [...] Diet will be a major factor in this.His Lantus was increased to 43. Plan Of Treatment Medication Medication Name Sig Start Date Stop Date Notes Metoprolol Succinate ER 25 mg TAKE 1 TABLET TWICE A DAY FreeStyle Lite Test - In Vitro Trulicity 3 MG/0.5ML INJECT 1 PEN WEEKLY hydroCHLOROthiazide 25 mg TAKE 1 TABLET DAILY. orally daily Atorvastatin Calcium 80 mg 1 Tablet Oral Once a day Aspirin 81 81 MG 1 tablet Orally Once a day Fish Oil 1200 MG 1 capsule Orally Onc e a day Fluticasone-Salmeterol 45-21 MCG/ACT USE 2 INHALATIONS TWICE A DAY Inhalation Twice a day CoQ10 200 MG 1 capsule with a amadeo l Orally Once a day Sure Comfort Pen Perry 32G X 4 MM USE WITH INSULIN ONCE DAILY Fiber 500 MG as directed Orally Multi Vitamin - 1 tablet Orally Once a day Jardiance 25 mg TAKE 1 TABLET DAILY Lantus SoloStar 100 UNIT/ML INJECT 36 UN ITS UNDER THE SKIN DAILY Lisinopril 40 mg 1 tablet orally once a day Next Appt Details Follow Up: 2 Weeks, Reason: ov Provider Name:Nabil Benitez , 11/20/2025 10:45:00 AM, [address] [place] [address] TAI [place], [place], [address], Provider Name:Nabil Benitez , 04/12/2026 03:00:00 PM, [address] [place] [address] TAI COREA, CLIFFORD MARTINEZ, [id number], Progress Notes * MAYURI Jose ArmandoDOB: [birth year] (74 yo M)Acc No.[id number]:08/03/2025 Progress Notes Patient: Jose Armando ISLAS Provider: Luis Benitez MD :1950 A ge:74 Y S ex:Male Date:08/03/2025 Address:[address] [place], [place] [id number] Subjective: * Chief Complaints: * P ending right knee replacementBenign prostatic hypertrophyCOPDHyperlipidemiaHypertensionCoronary artery diseaseDiabetes * HPI: C OVID-19 Screening: . He is scheduled August 24, 2025 at [facility] to have a right knee replacement by Dr. Gallagher. Examined him and taken a history. He is medically cleared for the procedure today. 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 He has been on 40 units of Lantus for a couple of weeks to reduce the hemoglobin A1c. I have increased it to 43 today. He will do a fasting glucose Wednesday and have a virtual visit with me in 6 weeks. He recently had a diabetic eye examination and was told it was normal. He feels generally healthy and well. He has had no dyspnea on exertion or chest pain. Questions H ave you had any new onset fever, chills, cough, congestion, sore throat, shortness of breath, muscle aches? N o * ROS: G eneral/Constitutional: pain R ight knee, otherwise only normal aches and pains.?Chills d enies. F atigue a dmits. F ever d enies. E NT: Decreased hearing d enies. R espiratory: Cough d enies. C ardiovascular: Chest pain with exertion d enies. D yspnea on exertion?denies. S hortness of breath d enies. G astrointestinal: Constipation o ccasional. D ecreased appetite d enies. D iarrhea d enies. H eartburn o ccasional. N ausea d enies. R ectal bleeding d enies. V omiting d enies. H ematology: bruising d enies. p etechiae d enies. S wollen glands n one have been noted. G enitourinary: Frequent urination o nce a night. M usculoskeletal: Muscle aches d enies. P ainful joints R ight knee.?Sciatica d enies. W eakness d enies. S [...] dditional Findings: Tobacco Non-User E x-cigarette smoker Diogo e stopped smoking 20 years ago. 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 A daughter of a drug overdose. A son is alive with anxiety. He is retired. He has been to [facility] for many years. * Medications: T akingLisinopril 40 mg Tablet 1 tablet orally once a day Jardiance 25 mg Tablet TAKE 1 TABLET DAILY Lantus SoloStar 100 UNIT/ML Solution Pen-injector INJECT 36 UNITS UNDER THE SKIN DAILY Fiber 500 MG Capsule as directed Orally Multi [...] Orally Once a day Sure Comfort Pen Perry 32G X 4 MM Miscellaneous USE WITH [...] List reviewed and reconciled with the patientTaking Lisinopril 40 mg Tablet 1 tablet orally once a day Taking Jardiance 25 mg Tablet TAKE 1 TABLET DAILY Taking Lantus SoloStar 100 UNIT/ML Solution Pen-injector INJECT 36 UNITS UNDER THE SKIN DAILY Taking Fiber 500 MG Capsule as directed Orally [...] Once a day Taking Sure Comfort Pen Perry 32G X 4 MM Miscellaneous USE WITH [...] the patient * Allergies: M etformin HClCat DimaderKendal Baezno[Allergies Verified] Objective: * Vitals: H t: 72, Wt:209, BMI:28.34, BP:118/79, HR:72, RR:16, Temp:98.2, Oxygen sat %:94, Wt-k.8. * P ast Orders: Lab:Hemoglobin A1c * Collection Date 07/05/2025 04/04/2025 10/24/2024 Collection Time 10:50 AM 12:05 PM 10:54 AM Order Date 07/05/2025 04/04/2025 10/24/2024 Hemoglobin A1c % 8.1 H (Ref Range: <6.0 %) 7.8 H (Ref Range: <6.0 %) 7.5 H (Ref Range: <6.0 %) Estimated Average Glucose 186 (Ref Range: mg/dL) 177 (Ref Range: mg/dL) 169 (Ref Range: mg/dL) * Lab:Complete Blood Count [...] X10*3/uL) 0.000 (Ref Range: 0.0-0.012 X10*3/uL) * Lab:[facility] spe[facility] Fast * Collection Date 07/05/2025 04/04/2025 10/24/2024 [...] mg/dL) 9.9 (Ref Range: 8.4-10.2 mg/dL) * Lab:Lipid Panel * Collection Date 07/05/2025 04/04/2025 [...] 35 L (Ref Range: >40 mg/dL) * Lab:Microalbumin, Random * Collection Date [...] 11.2 (Ref Range: <30 ug/mg cr) * Examination: G eneral Examination: GENERAL APPEARANCE: p leasant, well nourished, well developed, in no acute distress, calm and relaxed: overweight: man. HEAD: a traumatic, normocephalic. EYES: e [...] e xtremities unremarkable, no clubbing, cyanosis or edema, Crepitus right knee. PERIPHERAL PULSES: n ormal. NEUROLOGIC: a lert and oriented, cranial nerves 2-12 grossly intact, deep tendon reflexes 2+ symmetrical, motor strength normal upper and lower extremities, sensory exam intact. PSYCH: a lert, oriented. Assessment: * Assessment: 1. F ormer smoker - Z87.891 (Primary) N otes :He is highly motivated not to smoke. We created a plan to prevent relapse in times of stress or illness. 2 . C hronic obstructive pulmonary disease, unspecified COPD type - J44.9 N otes :He is not smoking. He is breathing room air comfortably. He is only short of breath with prolonged exertion. He does not have a productive cough at this time. No change in his regimen was made. 3 . B enign prostatic hyperplasia, unspecified whether lower urinary tract symptoms present - N40.0 N otes :He has been rising from sleep once a night to urinate. We have discussed lifestyle modifications he could make to reduce nocturia. He denies any hematuria or dysuria. 4 . E ssential hypertension - I10 N otes :His blood pressure is currently stable and in his target range. I recommended weight loss and sodium restriction but made no change in his medications. 5 . C oronary artery disease involving [place] coronary artery of [place] heart without angina pectoris - I25.10 N otes :His coronary artery disease is stable. His pain up-to-date with cardiology. No change in his regimen as needed today. 6 . P rimary osteoarthritis of both knees - M17.0 N otes :History knee pain has improved. His myelin at the end of the day. He is conducting all of the activities of daily life without impairment. 7 . O verweight - E66.3 N otes :He remains in the overweight range but has lost 3 pounds. We reviewed his weight loss strategy. We made a plan to lose weight at a rate of one half of a pound per week. 8 . M ixed hyperlipidemia - E78.2 N otes :His total cholesterol is 126 and his lipids are stable. He is compliant with his regimen. No changes were necessary today. 9 . T ype 2 diabetes mellitus with complication, unspecified whether chcf insulin use - E11.8 N otes :His [...] Diet will be a major factor in this.His Lantus was increased to 43. Plan: * Treatment: * Procedure Codes: 9 4760 MEASURE BLOOD OXYGEN LEVEL * Preventive Medicine: Counseling: C are goal follow-up plan: Counseling for abnormal BMI given Y es Above Normal BMI Follow-up D ietary management education, guidance, and counseling S moking/Tobacco Use Patient counseled on the dangers of tobacco use and urged to quit. 0 08/03/2025 DM Care Plan: P atient Lifestyle Goals P atient wants to be able to manage diabetes without too much effort. T reatment Goals H bA1C < 7.0, Blood Sugars less than < 115. B arriers n o barriers. S elf-Managment Goals W ork on weight loss, with a goal of losing 1 lb per week. * Follow Up: 2 Weeks (Reason: ov) * Images: * Sign off status: Completed true * Provider: Luis Benitez MD Date: 0 08/03/2025 Generated for Blaine dowell/Elder/Hemaitting on: 1 01/13/2025 11:07 AM EST History and Physical Notes * HPI (History of Present Illness) Category Sub-Category Detail Notes COVID-19 Screening Questions Have you had any new onset fever, chills, cough, congestion, sore throat, shortness of breath, muscle aches?: No Examination Category Sub-Category Detail Notes General Examination GENERAL APPEARANCE: pleasant , well nourished, well developed, in no acute distress, calm and relaxed: overweight: man HEAD: atraumatic, normocep halic EYES: eomi, [...] extremities unremark able, no clubbing, cyanosis or edema, Crepitus right knee LYMPH NODES: no enlarged lymph no eleno,spleen normal RECTAL EXAM: not examined PSYCH: alert, oriented ORAL CAVITY: normal, unremarkable
--- OUTSIDE RECORDS SUMMARY | 2025-08-20 04:45 | XMS_ITS ---
Author Organization Nabil Benitez III, MD Address [address] [place] [address] Care Team Providers Care Dietary Services Manager Name Role Phone Dr. Nabil Benitez III Primary Care Provider [phone] Allergies Allergen (clinical drug ingredient) Drug/Non Drug Allergy documented on EMR Reaction Allergy Type Onset Date Status Dust Mites Unknown Allergy Active Cat dander Cat Dander Unknown Allergy Active metformin Metformin HCl Unknown Drug Allergy Act lauren REASON FOR VISIT Diabetes, Osteoarthritis of both knees, Total right knee replacement pending, COPD, Coronary arterydisease, Hypertension, Hyperlipidemia Medications Medication SIG (Take, Route, Frequency, Duration) Notes Start Date End Date Status hydroCHLOROthiazide 25 mg TAKE 1 TABLET DAILY. orally daily Active Atorvastatin Calcium 80 mg 1 Tablet Oral Once a day Active FreeStyle Lite Test - In Vitro Active Trulicity 3 MG/0.5ML INJECT 1 PEN WEEKLY Active Sure Comfort Pen Graham 32G X 4 MM USE WITH INSULIN ONCE DAILY Active Fluticasone-Salmeterol 45-21 MCG/ACT USE 2 INHALATIONS TWICE A DAY Inhalation Twice a day Active Aspirin 81 81 MG 1 tablet Orally Once a day Active CoQ10 200 MG 1 capsule with a amadeo l Orally Once a day Active Multi Vitamin - 1 tablet Orally Once a day Active Fish Oil 1200 MG 1 capsule Orally Onc e a day Active Metoprolol Succinate ER 25 mg TAKE 1 TAB LET TWICE A DAY Active Lisinopril 40 mg 1 tablet orally once a day Active Jardiance 25 mg TAKE 1 TABLET DAILY Active Lantus SoloStar 100 UNIT/ML INJECT 36 UN ITS UNDER THE SKIN DAILY Active Fiber 500 MG as directed Orally Active Social History Tobacco Use: Social History [...] Tobacco Non-User Ex-cigaret te smoker Vital Signs Height 72 in 08/20/2025 Weight 209 lbs 08/20/2025 BMI 28.34 kg/m2 08/20/2025 Encounters Encounter Location Date Provider Diagnosis Nabil Benitez III, MD [address] [place] [address] [place] [address] 08/20/2025 Nabil Benitez Type 2 diabetes shilo itus with complication, unspecified whether alf insulin use E11.8 ; Former smoker Z87.891 ; Overweight E66.3 ; Benign prostatic hyperplasia, unspecified whether lower urinary tract symptoms present N40.0 ; Chronic obstructive pulmonary disease, unspecified COPD type J44.9 ; Primary osteoarthritis of both knees M17.0 ; Coronary artery disease involving kaibab coronary artery of kaibab heart without angina pectoris I25.10 and Essential hypertension I10 Assessments Encounter Date Diagnosis (ICD Code) Assessment Notes Treat ment Notes Treatment Clinical Notes 08/20/2025 Type 2 diabetes mellitus with complication, 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 An aggressive approach to glycemic control is being undertaken. 08/20/2025 Former smoker (ICD-1 0 - Z87.891) He is highly motivated not to smoke. We created a plan to prevent relapse in times of stress or illness. 08/20/2025 Overweight (ICD-10 - E66.3) He remains in the overweight range but has lost 3 pounds. We reviewed his weight loss strategy. We made a plan to lose weight at a rate of one half of a pound per week. 08/20/2025 Benign prostatic hyperplasia, unspecified whether lower urinary tract symptoms present (ICD-10 - N40.0) He has been rising from sleep once a night to urinate. We have discussed lifestyle modifications he could make to reduce nocturia. He denies any hematuria or dysuria. 08/20/2025 Chronic obstructive pulmonary disease, unspecified COPD type (ICD-10 - J44.9) He is not smoking. He is breathing room air comfortably. He is only short of breath with prolonged exertion. He does not have a productive cough at this time. No change in his regimen was made. 08/20/2025 Primary osteoarthritis of both knees (ICD-10 - M17.0) History knee pain has improved. His myelin at the end of the day. He is conducting all of the activities of daily life without impairment. 08/20/2025 Coronary artery disease involving kaibab coronary artery of kaibab heart without angina pectoris (ICD-10 - I25.10) His coronary artery disease is stable. His pain up-to-date with cardiology. No change in his regimen as needed today. 08/20/2025 Essential hypertension (ICD-10 - I10) His blood pressure is currently stable and in his target range. I recommended weight loss and sodium restriction but made no change in his medications. Plan Of Treatment Medication Medication Name Sig Start Date Stop Date Notes hydroCHLOROthiazide 25 mg TAKE 1 TABLET DAILY. orally daily Atorvastatin Calcium 80 mg 1 Tablet Oral Once a day FreeStyle Lite Test - In Vitro Trulicity 3 MG/0.5ML INJECT 1 PEN WEEKLY Sure Comfort Pen Graham 32G X 4 MM USE WITH INSULIN ONCE DAILY Fluticasone-Salmeterol 45-21 MCG/ACT USE 2 INHALATIONS TWICE A DAY Inhalation Twice a day Aspirin 81 81 MG 1 tablet Orally Once a day CoQ10 200 MG 1 capsule with a amadeo l Orally Once a day Multi Vitamin - 1 tablet Orally Once a day Fish Oil 1200 MG 1 capsule Orally Onc e a day Metoprolol Succinate ER 25 mg TAKE 1 TABLET TWICE A DAY Lisinopril 40 mg 1 tablet orally once a day Jardiance 25 mg TAKE 1 TABLET DAILY Lantus SoloStar 100 UNIT/ML INJECT 36 UN ITS UNDER THE SKIN DAILY Fiber 500 MG as directed Orally Next Appt Details Follow Up: 4 Weeks, Reason: OV Provider Name:Nabil Benitez , 11/20/2025 10:45:00 AM, [address], [place], [address], Provider Name:Nabil Benitez , 04/12/2026 03:00:00 PM, [address] [place], [address], Progress Notes * Theodore MESSINA: [birth year] (74 yo M)Acc No.[id number]:08/20/2025 Patient: Jose Armando ISLAS Provider: Luis Benitez MD :1950 A ge:74 Y S ex:Male Date:08/20/2025 Address:[address] [place] [address] Subjective: * Chief Complaints: * D iabetesOsteoarthritis of both kneesTotal right knee replacement pendingCOPDCoronary artery diseaseHypertensionHyperlipidemia * HPI: * : This telehealth visit took place over 15 min. with the patient at home and me in my office. He gave consent for billing.He was scheduled later this week to have a right knee replacement, but this has been postponed until the A1c improved. It is currently 8.1.On his last visit. His insulin was increased by 3 units. It was increased by another 2 today. He is going to undergo aggressive glucose control. Followup visits have been scheduled. He is currently frree of dyspnea except with prolonged exertion and has had no exertional angina. Telehealth L ocation of provider rendering services: { ...} [address] [facility] [address] [place] [id number] L ocation of patient: tiera ddress listed in demographics for today's visit P atient identification confirmed using: LYUDMILA Nance ame T elehealth method: T elephone only. Patient not visible to care provider. C onsent: P atient verbally consented to treatment, Patient verbally consented to billing insurance company, Patient informed of any privacy concerns related to method of visit T otal time spent with patient (mins) 1 5 * ROS: G eneral/Constitutional: pain B oth knees, right greater than left. C hills d enies. F atigue a [...] smoking 20 years ago. 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 A daughter of a drug overdose. A son is alive with anxiety. He is retired. He has been to [facility] for many years. * Medications: T akingLisinopril [...] Orally Once a day Sure Comfort Pen Graham 32G X 4 MM Miscellaneous USE WITH [...] Once a day Taking Sure Comfort Pen Graham 32G X 4 MM Miscellaneous USE WITH [...] * Vitals: H t: 72, Wt:209, BMI:28.34, Ht-cm: 182.88, Wt-k.8. * P ast Orders: Imaging:Diabetic Eye Exam * Performed Date 08/01/2025 Order Date 08/01/2025 11/14/2019 07/31/2024 Result: undefined undefined * Lab:Microalbumin, Random * Collection Date 07/05/2025 [...] 11.2 (Ref Range: <30 ug/mg cr) * Lab:Hemoglobin A1c * Collection Date 07/05/2025 04/04/2025 10/24/2024 Collection Time 10:50 AM 12:05 PM 10:54 AM Order Date 07/05/2025 04/04/2025 10/24/2024 Hemoglobin A1c % 8.1 H (Ref Range: <6.0 %) 7.8 H (Ref Range: <6.0 %) 7.5 H (Ref Range: <6.0 %) Estimated Average Glucose 186 (Ref Range: mg/dL) 177 (Ref Range: mg/dL) 169 (Ref Range: mg/dL) * Lab:Lipid Panel * Collection Date [...] L (Ref Range: >40 mg/dL) * Lab:Comprehensive [place]. Pane l Fast * Collection Date 07/05/2025 [...] 0.0-0.012 X10*3/uL) 0.000 (Ref Range: 0.0-0.012 X10*3/uL) Assessment: * Assessment: 1. T ype 2 diabetes mellitus with complication, unspecified whether alf insulin use - E11.8 (Primary) N otes :The hemoglobin is 8.1. An aggressive approach to glycemic control is being undertaken. 2 . F ormer smoker - Z87.891 N otes :He is highly motivated not to smoke. We created a plan to prevent relapse in times of stress or illness. 3 . O verweight - E66.3 N otes :He remains in the overweight range but has lost 3 pounds. We reviewed his weight loss strategy. We made a plan to lose weight at a rate of one half of a pound per week. 4 . B enign prostatic hyperplasia, unspecified whether lower urinary tract symptoms present - N40.0 N otes :He has been rising from sleep once a night to urinate. We have discussed lifestyle modifications he could make to reduce nocturia. He denies any hematuria or dysuria. 5 . C hronic obstructive pulmonary disease, unspecified COPD type - J44.9 N otes :He is not smoking. He is breathing room air comfortably. He is only short of breath with prolonged exertion. He does not have a productive cough at this time. No change in his regimen was made. 6 . P rimary osteoarthritis of both knees - M17.0 N otes :History knee pain has improved. His myelin at the end of the day. He is conducting all of the activities of daily life without impairment. 7 . C oronary artery disease involving kaibab coronary artery of kaibab heart without angina pectoris - I25.10 N otes :His coronary artery disease is stable. His pain up-to-date with cardiology. No change in his regimen as needed today. 8 . E ssential hypertension - I10 N otes :His blood pressure is currently stable and in his target range. I recommended weight loss and sodium restriction but made no change in his medications. Plan: * Treatment: * Procedure Codes: 9 8012 SYNCH AUDIO-ONLY EST SF 10 * Preventive Medicine: Counseling: C are goal follow-up plan: Counseling for abnormal BMI given Y es Above Normal BMI Follow-up D ietary management education, guidance, and counseling S moking/Tobacco Use Patient counseled on the dangers of tobacco use and urged to quit. 0 07/23/2025 DM Care Plan: P atient Lifestyle Goals P atient wants to be able to manage diabetes without too much effort. T reatment Goals B lood Sugars less than < 115, HbA1C < 7.0. B arriers n o barriers. S elf-Managment [...] Eat a healthy diet. * Follow Up: 4 Weeks (Reason: OV) * Images: * Sign off status: Completed true * Provider: Luis Benitez MD Date: 0 08/20/2025 Generated for Blaine dowell/Elder/Hemaitting on: 1 01/13/2025 11:08 AM EST History and Physical Notes * HPI (History of Present Illness) Category Sub-Category Detail Notes Telehealth Location of [facility] rendering services:: {...} [address] [place] [id number] Location of patient:: address listed in demographics for today's visit Patient identification confirmed using:: Name, Telehealth method:: Telephone only. Tiera ent not visible to care provider. Consent:: Patient verbally c onsented to treatment, Patient verbally consented to billing insurance company, Patient informed of any privacy concerns related to method of visit Total time spent with patient (mins): 15
--- OUTSIDE RECORDS SUMMARY | 2025-09-17 10:15 | XMS_ITS ---
Author Organization Nabil Benitez III, MD Address [address] [address] Care Team Providers Care Telecommunications Sales Representative Name Role Phone Dr. Nabil Benitez III Primary Care Provider Allergies Allergen (clinical drug ingredient) Drug/Non Drug Allergy documented on EMR Reaction Allergy Type Onset Date Status Dust Mites Unknown Allergy Active Cat dander Cat Dander Unknown Allergy Active metformin Metformin HCl Unknown Drug Allergy Act lauren Results Component Value Reference Range Notes RBS/Hemocue glucose Reviewed date:09/17/2025 03:11:20 PM Interpretation: Performing Lab: Notes/Report: RBS 149 REASON FOR VISIT Arthritis right knee, Benign prostatic hypertrophy, COPD, Coronary artery disease, Hypertension, Diabetes Medications Medication SIG (Take, Route, Frequency, Duration) Notes Start Date End Date Status FreeStyle Lite Test - In Vitro Active Atorvastatin Calcium 80 mg 1 Tablet Oral Once a day Active Metoprolol Succinate ER 25 mg TAKE 1 TAB LET TWICE A DAY Active Trulicity 3 MG/0.5ML INJECT 1 PEN WEEKLY Active hydroCHLOROthiazide 25 mg TAKE 1 TABLET DAILY. orally daily Active Fluticasone-Salmeterol 45-21 MCG/ACT USE 2 INHALATIONS TWICE A DAY Inhalation Twice a day Active Fish Oil 1200 MG 1 capsule Orally Onc e a day Active CoQ10 200 MG 1 capsule with a amadeo l Orally Once a day Active Aspirin 81 81 MG 1 tablet Orally Once a day Active Sure Comfort Pen [place] 32G X 4 MM USE WITH INSULIN ONCE DAILY Active Jardiance 25 mg TAKE 1 TABLET DAILY Active Lisinopril 40 mg 1 tablet orally once a day Active Fiber 500 MG as directed Orally Active Lantus SoloStar 100 UNIT/ML INJECT 36 UN ITS UNDER THE SKIN DAILY Active Multi Vitamin - 1 tablet Orally [...] Additional Findings: Tobacco Non-User Ex-cigaret te smoker Problems Problem Type SNOMED Code ICD Code Onset Dates Problem Status W/U Status Risk Notes Problem DM - Diabetes mellitus (91029952) DM (diabetes mellitus) (E11.9) Active confirmed We are going to try to reduce a hemoglobin A1c of 8.1. However, he may decide not to have the surgery after all. He will continue on current medication. He has gained 6 pounds and we discussed a plan of aggressive weight loss. Vital Signs Temperature 97.3 degrees Fahrenheit 09/17/20 25 Blood pressure systolic 120 mm Hg 09/17/20 25 Blood pressure diastolic 74 mm Hg 025 Heart Rate 74 /min 09/17/2025 Height 72 in 09/17/2025 Weight 215 lbs 09/17/2025 BMI 29.16 kg/m2 09/17/2025 Encounters Encounter Location Date Provider Diagnosis Nabil Benitez III, MD [address] [place] [address] [place] [address] 09/17/2025 Nabil Benitez DM (diabetes mellitu s) E11.9 ; Benign prostatic hyperplasia, unspecified whether lower urinary tract symptoms present N40.0 ; Mixed hyperlipidemia E78.2 ; Overweight E66.3 ; Type 2 diabetes mellitus with complication, unspecified whether senior living insulin use E11.8 ; Chronic obstructive pulmonary disease, unspecified COPD type J44.9 ; Primary osteoarthritis of both knees M17.0 and Coronary artery disease involving [place] coronary artery of [place] heart without angina pectoris I25.10 Assessments Encounter Date Diagnosis (ICD Code) Assessment Notes Treat ment Notes Treatment Clinical Notes 09/17/2025 DM (diabetes mellitus) (ICD-10 - E11.9) We are going to try to reduce a hemoglobin A1c of 8.1. However, he may decide not to have the surgery after all. He will continue on current medication. He has gained 6 pounds and we discussed a plan of aggressive weight loss. 09/17/2025 Benign prostatic hyperplasia, unspecified whether lower urinary tract symptoms present (ICD-10 - N40.0) He has been rising from sleep once or twice a night. We have discussed lifestyle modifications he could make to reduce nocturia. 09/17/2025 Mixed hyperlipidemia (ICD-10 - E78.2) His lipids are currently stable and no change in his regimen was needed. I recommended aggressive weight loss. 09/17/2025 Overweight (ICD-10 - E66.3) His body mass index is 29. I recommended aggressive weight loss. He has gained 6 pounds. 09/17/2025 Type 2 diabetes mellitus with complication, unspecified whether terminal system operator insulin use (ICD-10 - E11.8) He was continued on current medication. We are going to try to aggressively lose weight and consume a healthy,, reduced calorie, low cholesterol diabetic diet. 09/17/2025 Chronic obstructive pulmonary disease, unspecified COPD type (ICD-10 - J44.9) He is not smoking. He is breathing room air comfortably. He is only short of breath with prolonged exertion. He does not have a productive cough at this time. No change in his regimen was made. 09/17/2025 Primary osteoarthritis of both knees (ICD-10 - M17.0) His pain has improved in the right knee. He is reconsidering surgery at this time but has not made a decision. 09/17/2025 Coronary artery disease involving [place] coronary artery of [place] heart without angina pectoris (ICD-10 - I25.10) His coronary artery disease is stable. His pain up-to-date with cardiology. No change in his regimen as needed today. Plan Of Treatment Medication Medication Name Sig Start Date Stop Date Notes FreeStyle Lite Test - In Vitro Atorvastatin Calcium 80 mg 1 Tablet Oral Once a day Metoprolol Succinate ER 25 mg TAKE 1 TABLET TWICE A DAY Trulicity 3 MG/0.5ML INJECT 1 PEN WEEKLY hydroCHLOROthiazide 25 mg TAKE 1 TABLET DAILY. orally daily Fluticasone-Salmeterol 45-21 MCG/ACT USE 2 INHALATIONS TWICE A DAY Inhalation Twice a day Fish Oil 1200 MG 1 capsule Orally Onc e a day CoQ10 200 MG 1 capsule with a amadeo l Orally Once a day Aspirin 81 81 MG 1 tablet Orally Once a day Sure Comfort Pen [place] 32G X 4 MM USE WITH INSULIN ONCE DAILY Jardiance 25 mg TAKE 1 TABLET DAILY Lisinopril 40 mg 1 tablet orally once a day Fiber 500 MG as directed Orally Lantus SoloStar 100 UNIT/ML INJECT 36 UN ITS UNDER THE SKIN DAILY Multi Vitamin - 1 tablet Orally Once a day Pending Test Test Name Order Date PROFILE, FASTING (COMPREHENSIVE METABOLI C) 09/17/2025 PSA, TOTAL 09/17/2025 CBC w DIFF 09/17/2025 Lipid Panel 09/17/2025 Microalbumin, Random 09/17/2025 Hemoglobin A1c 09/17/2025 Next Appt Details Follow Up: 2 Months, Reason: OV Provider Name:Nabil Benitez , 11/20/2025 10:45:00 AM, [address] [place] [address] TAI COREA, [place], [id number], Provider Name:Nabil Benitez , 04/12/2026 03:00:00 PM, [address] [place] [address] TAI COREA, [place], [phone], Progress Notes * FEDERICOJose Armando DELANEYDOB: [birth year] (74 yo M)Acc No.[id number]:09/17/2025 Progress Notes Patient: Jose Armando ISLAS Provider: Luis Benitez MD :1950 A ge:74 Y S ex:Male Date:09/17/2025 Address:[address] [place], [place] [id number] Subjective: * Chief Complaints: * A rthritis right kneeBenign prostatic hypertrophyCOPDCoronary artery diseaseHypertensionDiabetes * HPI: C OVID-19 Screening: He reports that the orthopedist said that he could not have the right knee replacement surgery unless his hemoglobin A1c improved. He is seen here to begin that process. H owever, the pain in his right knee has begun to improved substantially and he is questioning the need for the right knee replacement. He is going to work this out with the orthopedist and inform me of his decision. He says it has improved by 40%. He is otherwise stable and feels well. Questions H ave you had any new onset fever, chills, cough, congestion, sore throat, shortness of breath, muscle aches? N o * ROS: G eneral/Constitutional: pain B oth [...] Muscle aches d enies. P ainful joints B oth knees.?Sciatica d enies. W eakness d enies. S [...] smoking 20 years ago. 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 A daughter of a drug overdose. A son is alive with anxiety. He is retired. He has been to [facility] for many years. * Medications: T akingLisinopril [...] Orally Once a day Sure Comfort Pen [place] 32G X 4 MM Miscellaneous USE WITH [...] Once a day Taking Sure Comfort Pen [place] 32G X 4 MM Miscellaneous USE WITH [...] the patient * Allergies: M etformin HClCat DanderKendal Baezno[Allergies Verified] Objective: * Vitals: H t: 72, Wt:215, BMI:29.16, BP:120/74, HR:74, Temp:97.3, Ht-cm: 182.88, Wt-k.52. * P ast Orders: Imaging:Diabetic Eye Exam * Performed Date 08/01/2025 Order Date 08/01/2025 11/14/2019 07/31/2024 Result: undefined undefined ???Lab:RBS/Hemocue glucose (Order Date - 09/17/2025) (Collection Date & Time - 09/17/2025)?ValueReference Range?[id number] * Lab:Hemoglobin A1c * Collection Date 07/05/2025 [...] 35 L (Ref Range: >40 mg/dL) * Lab:[facility] [place] l Fast * Collection Date 07/05/2025 04/04/2025 [...] Range: 0.0-0.012 X10*3/uL) * Lab:Microalbumin, Random * Collection Date 07/05/2025 [...] vascular bruits. LUNGS: : diminished breath sounds throughout: no wheezes, rales, rhonchi. BREASTS: no masses palpable bilaterally. ABDOMEN: b owel sounds normal, no ascites, no organomegaly, no mass: overweight. RECTAL EXAM: n ot examined. MUSCULOSKELETAL: e xtremities unremarkable, no clubbing, cyanosis or edema, Mild, crepitus both knees, No peripheral edema. PERIPHERAL PULSES: n ormal. NEUROLOGIC: a lert and oriented, cranial nerves 2-12 grossly intact, deep tendon reflexes 2+ symmetrical, motor strength normal upper and lower extremities, sensory exam intact. PSYCH: a lert, oriented. Assessment: * Assessment: 1. D M (diabetes mellitus) - E11.9 (Primary) N otes :We are going to try to reduce a hemoglobin A1c of 8.1. However, he may decide not to have the surgery after all. He will continue on current medication. He has gained 6 pounds and we discussed a plan of aggressive weight loss. 2 . B enign prostatic hyperplasia, unspecified whether lower urinary tract symptoms present - N40.0 N otes :He has been rising from sleep once or twice a night. We have discussed lifestyle modifications he could make to reduce nocturia. 3 . M ixed hyperlipidemia - E78.2 N otes :His lipids are currently stable and no change in his regimen was needed. I recommended aggressive weight loss. 4 . O verweight - E66.3 N otes :His body mass index is 29. I recommended aggressive weight loss. He has gained 6 pounds. 5 . T ype 2 diabetes mellitus with complication, unspecified whether terminal system operator insulin use - E11.8 N otes :He was continued on current medication. We are going to try to aggressively lose weight and consume a healthy,, reduced calorie, low cholesterol diabetic diet. 6 . C hronic obstructive pulmonary disease, unspecified COPD type - J44.9 N otes :He is not smoking. He is breathing room air comfortably. He is only short of breath with prolonged exertion. He does not have a productive cough at this time. No change in his regimen was made. 7 . P rimary osteoarthritis of both knees - M17.0 N otes :His pain has improved in the right knee. He is reconsidering surgery at this time but has not made a decision. 8 . C oronary artery disease involving [place] coronary artery of [place] heart without angina pectoris - I25.10 N otes :His coronary artery disease is stable. His pain up-to-date with cardiology. No change in his regimen as needed today. Plan: * Treatment: Value Reference Range R BS 149 2.?Benign prostatic hyperplasia, unspecified whether lower urinary tract symptoms present?LAB: PROFILE, FASTING (COMPREHENSIVE METABOLIC) ?LAB: PSA, TOTAL ?LAB: CBC w DIFF ?LAB: Lipid Panel ?LAB: Microalbumin, Random ?LAB: Hemoglobin A1c3.?Mixed hyperlipidemia?LAB: PROFILE, FASTING (COMPREHENSIVE METABOLIC) ?LAB: PSA, TOTAL ?LAB: CBC w DIFF ?LAB: Lipid Panel ?LAB: Microalbumin, Random ?LAB: Hemoglobin A1c4.?Overweight?LAB: PROFILE, FASTING (COMPREHENSIVE METABOLIC) ?LAB: PSA, TOTAL ?LAB: CBC w DIFF ?LAB: Lipid Panel ?LAB: Microalbumin, Random ?LAB: Hemoglobin A1c5.?Type 2 diabetes mellitus with complication, unspecified whether senior living insulin use?LAB: PROFILE, FASTING (COMPREHENSIVE METABOLIC) ?LAB: PSA, TOTAL ?LAB: CBC w DIFF ?LAB: Lipid Panel ?LAB: Microalbumin, Random ?LAB: Hemoglobin A1c6.?Others? Continue Lisinopril Tablet, 40 mg, 1 tablet, orally, once a day;?Continue Jardiance Tablet, 25mg, TAKE 1 TABLET DAILY;?Continue Lantus SoloStar Solution Pen-injector, 100 UNIT/ML, INJECT 36 UNITS UNDER THE SKIN DAILY;?Continue Fiber Capsule, 500 MG, as directed, Orally;?Continue Multi Vitamin Tablet, -, 1 tablet, Orally, Once a day;?Continue Fish Oil Capsule, 1200 MG, 1 capsule, Orally, Once a day;?Continue Fluticasone-Salmeterol Aerosol, 45-21 MCG/ACT, USE 2 INHALATIONS TWICE A DAY, Inhalation, Twice a day;?Continue Aspirin 81 Tablet Chewable, 81 MG, 1 tablet, Orally, Once a day;?Continue CoQ10 Capsule, 200 MG, 1 capsule with a meal, Orally, Once a day;?Continue Sure Comfort Pen [place] Miscellaneous, 32G X 4 MM, USE WITH INSULIN ONCE DAILY; Continue hydroCHLOROthiazide Tablet, 25 mg, TAKE 1 TABLET DAILY., orally, daily;?Continue Atorvastatin Calcium Tablet, 80 mg, 1 Tablet, Oral, Once a day;?Continue FreeStyle Lite Test Strip, -, In Vitro;?Continue Trulicity Solution Auto- injector, 3 MG/0.5ML, INJECT 1 PEN WEEKLY; Continue Metoprolol Succinate ER Tablet Extended Release 24 Hour, 25 mg, TAKE 1 TABLET TWICE A DAY.?? * Procedure Codes: 8 2947 ASSAY, GLUCOSE, BLOOD QUANT * Preventive Medicine: Counseling: C are goal follow-up plan: Counseling for abnormal BMI given Y es Above Normal BMI Follow-up D ietary management education, guidance, and counseling S moking/Tobacco Use Patient counseled on the dangers of tobacco use and urged to quit. 1 DM Care Plan: P atient Lifestyle Goals P atient wants to be able to manage diabetes without too much effort. T reatment Goals B lood Sugars less than < 115, HbA1C < 7.0. B arriers n o barriers. S elf-Managment Goals W ork on weight loss, with a goal of losing 1 lb per week. * Follow Up: 2 Months (Reason: OV) * Images: * Sign off status: Completed true * Provider: Luis Benitez MD Date: Generated for Blaine dowell/Elder/eTodalis on: 01/13/2025 11:08 AM EST History and Physical [...] vascular bruits LUNGS: : diminished breath sounds throughout: no wheezes, rales, rhonchi ABDOMEN: bowel sounds normal, no ascites, no organomegaly, no mass: overweight NEUROLOGIC: alert and oriented, cranial nerves 2-12 grossly intact, deep tendon reflexes 2+ symmetrical, motor strength normal upper and lower extremities, sensory exam intact SKIN: no suspicious lesion s, anicteric PERIPHERAL PULSES: normal BREASTS: no masses palpable b ilaterally MUSCULOSKELETAL: extremities unremark able, no clubbing, cyanosis or edema, Mild, crepitus both knees, No peripheral edema LYMPH NODES: no enlarged lymph no eleno,spleen normal RECTAL EXAM: not examined PSYCH: alert, oriented ORAL CAVITY: normal, unremarkable
--- OUTSIDE RECORDS SUMMARY | 2025-11-12 11:07 | XMS_ITS | Patient Health Record ---
Author Organization Nabil Benitez III, MD Address [address] [place] [address] Care Team Providers Care Engineer/Conductor Name Role Phone Dr. Nabil Benitez III [...] 1.3 BLD neg Negative - Menstrating N/A RBS/Hemocue glucose Reviewed date:09/17/2025 03:11:20 PM Interpretation: Performing Lab: Notes/Report: RBS 149 Complete Blood Count Auto Di ff Reviewed date:04/10/2025 12:00:03 PM Interpretation: Performing Lab:[facility], [address] [place] [phone] Notes/Report: White Blood Count 8.0 4.8-10.8 X10*3/uL Red Blood Count 5.55 4.60-5.80 X10*6/uL Hemoglobin 16.7 14.0-18.0 g/dl Hematocrit 49.7 42.0-52.0 % Mean Corpuscular Volume 89.5 80.0-98.0 fL Mean Corpuscular Hemoglobin 30.1 27.0-33.0 pg Mean Corpuscular HGB Conc 33.6 31.0-36.0 g/dl Red Cell Distribution Width 13.4 11.0-16.0 % Platelet Count 161 160-400 X10*3/uL Mean Platelet Volume 10.0 9.4-12.4 fL Neutrophils Percent Auto 59.4 45-73 % Imm Gran Pct Auto 0.3 0.0-0.4 % Lymphocytes Percent Auto 25.0 20-40 % Monocytes Percent Auto 8.1 2-11 % Eosinophils Percent Auto 6.7 0-4 % Basophils Percent Auto 0.5 0-2 % NRBC Pct Auto 0.0 0.0-0.2 /100WBC Neutrophils Absolute Auto 4.7 2.0-8.3 x10*3/u L Imm Gran Abs Auto 0.02 0.00-0.03 X10*3/uL Lymphocytes Absolute Auto 2.0 1.2-4.9 X10*3/u L Monocytes Absolute Auto 0.6 0.1-1.2 X10*3/uL Eosinophils Absolute Auto 0.5 0.0-0.4 X10*3/u L Basophils Absolute Auto 0.0 0.0-0.2 X10*3/uL NRBC Abs Auto 0.000 0.0-0.012 X10*3/uL Comprehensive Wallace. Panel Fa st Reviewed date:04/10/2025 12:00:03 PM Interpretation: Performing Lab:[facility], [address] [place] [phone] Notes/Report: Sodium 140 135-145 mmol/L Potassium 4.0 3.3-5.1 mmol/L Chloride 103 96-108 mmol/L Carbon Dioxide 26 22-29 mmol/L Anion Gap 15 12-20 Blood Urea Nitrogen 22 9-16 mg/dL Creatinine 0.99 0.5-1.4 mg/dL Estimated Glomerular Filt Rate > 60 Chronic Kidney Disease: Estimated GFR < 60 mL/min/1.73m2 Severe Kidney Disease: Estimated GFR < 15 mL/min/1.73m2 Glucose Fasting 155 60-99 mg/dL A fasting glucose of 126 mg/dl or greater on more than one occasion is considered diagnostic of diabetes. Calcium 9.5 8.4-10.2 mg/dL Bilirubin Total 0.9 0.0-1.0 mg/dL Aspartate Amino Transferase 40 5-37 U/L Alanine Aminotransferase 54 0-40 U/L Total Protein 7.3 6.5-8.0 g/dL Albumin Level 4.4 3.5-5.0 g/dL Alkaline Phosphatase 95 39-117 U/L Lipid Panel Reviewed date:04/10/2025 12:00:03 PM Interpretation: Performing Lab:[address] [phone] Notes/Report: Triglycerides 94 <150 mg/dL Desirable Triglyceride: less than 150 mg/dL Borderline High Triglyceride 150-199 mg/dL High Triglyceride: 200-499 mg/dL Very High Triglyceride: greater than or equal to 5OO mg/dL Cholesterol 126 <200 mg/dL Desirable Cholesterol: less than 200 mg/dL Borderline High Cholesterol: 200-239 mg/dL High Cholesterol: greater than 239 mg/dL LDL Cholesterol Calculated 71 <100 mg/dL Desirable LDL: less than 100 mg/dL Near Optimal/Above Optimal LDL: 110-129 mg/dL Borderline High LDL: 130-159 mg/dL High LDL: 160-189 mg/dL Very High LDL: greater than or equal to 190 mg/dL HDL Cholesterol 37 >40 mg/dL Desirable HDL: greater than 40 mg/dL Note: This HDL assay may give artificially low results in patients with liver disease. Prostate Specific Antigen Reviewed date:04/10/2025 12:00:03 PM Interpretation: Performing Lab:[address] [phone] Notes/Report: Prostate Specific Antigen 3.43 <0.05-4.0 ng/mL PSA methodology: Vega Alinity i Chemiluminescent Microparticle Immunoassay (CMIA) Microalbumin, Random Reviewed date:04/10/2025 12:00:03 PM Interpretation: Performing Lab:[address] [phone] Notes/Report: Creatinine Urine 72.59 Microalbumin Urine 16.0 Microalbum/Creatinine Ratio Ur 22.0 <30 ug/mg cr Albumin/Creatinine Ratio Reference Ranges: Normal: < 30 ug/mg creatinine Microalbuminuria: 30 - 300 ug/mg creatinine Clinical Albuminuria: > 300 ug/mg creatinine Hemoglobin A1c Reviewed date:04/10/2025 12:00:03 PM Interpretation: Performing Lab:[facility], [address] [place] [phone] Notes/Report: Hemoglobin A1c % 7.8 <6.0 % [...] average glucose, using the formula of the P4Y-Wnhtkyl Average Glucose study (ADAG), Diabetes Care, Vol.31,#8, Jun. 2007 Complete Blood Count Auto Di ff Reviewed date:07/09/2025 04:09:54 PM Interpretation: Performing Lab:[facility], [address] [place] [phone] Notes/Report: White Blood Count 7.9 4.8-10.8 X10*3/uL Red Blood Count 5.51 4.60-5.80 X10*6/uL Hemoglobin 16.9 14.0-18.0 g/dl Hematocrit 49.0 42.0-52.0 % Mean Corpuscular Volume 88.9 80.0-98.0 fL Mean Corpuscular Hemoglobin 30.7 27.0-33.0 pg Mean Corpuscular HGB Conc 34.5 31.0-36.0 g/dl Red Cell Distribution Width 13.9 11.0-16.0 % Platelet Count 158 160-400 X10*3/uL Mean Platelet Volume 9.8 9.4-12.4 fL Neutrophils Percent Auto 59.3 45-73 % Imm Gran Pct Auto 0.3 0.0-0.4 % Lymphocytes Percent Auto 23.2 20-40 % Monocytes Percent Auto 8.0 2-11 % Eosinophils Percent Auto 8.4 0-4 % Basophils Percent Auto 0.8 0-2 % NRBC Pct Auto 0.0 0.0-0.2 /100WBC Neutrophils Absolute Auto 4.7 2.0-8.3 x10*3/u L Imm Gran Abs Auto 0.02 0.00-0.03 X10*3/uL Lymphocytes Absolute Auto 1.8 1.2-4.9 X10*3/u L Monocytes Absolute Auto 0.6 0.1-1.2 X10*3/uL Eosinophils Absolute Auto 0.7 0.0-0.4 X10*3/u L Basophils Absolute Auto 0.1 0.0-0.2 X10*3/uL NRBC Abs Auto 0.000 0.0-0.012 X10*3/uL Comprehensive Wallace. Panel Fa st Reviewed date:07/09/2025 04:09:55 PM Interpretation: Performing Lab:[facility], [address] [place] [phone] Notes/Report: Sodium 138 135-145 mmol/L Potassium 4.1 3.3-5.1 mmol/L Chloride 103 96-108 mmol/L Carbon Dioxide 26 22-29 mmol/L Anion Gap 13 12-20 Blood Urea Nitrogen 20 9-16 mg/dL Creatinine 1.02 0.5-1.4 mg/dL Estimated Glomerular Filt Rate > 60 Chronic Kidney Disease: Estimated GFR < 60 mL/min/1.73m2 Severe Kidney Disease: Estimated GFR < 15 mL/min/1.73m2 Glucose Fasting 174 60-99 mg/dL A fasting glucose of 126 mg/dl or greater on more than one occasion is considered diagnostic of diabetes. Calcium 9.6 8.4-10.2 mg/dL Bilirubin Total 1.4 0.0-1.0 mg/dL Aspartate Amino Transferase 38 5-37 U/L Alanine Aminotransferase 45 0-40 U/L Total Protein 7.2 6.5-8.0 g/dL Albumin Level 4.7 3.5-5.0 g/dL Alkaline Phosphatase 82 39-117 U/L Lipid Panel Reviewed date:07/09/2025 04:09:55 PM Interpretation: Performing Lab:[facility], [address] [place] [phone] Notes/Report: Triglycerides 145 <150 mg/dL Desirable Triglyceride: less than 150 mg/dL Borderline High Triglyceride 150-199 mg/dL High Triglyceride: 200-499 mg/dL Very High Triglyceride: greater than or equal to 5OO mg/dL Cholesterol 135 <200 mg/dL Desirable Cholesterol: less than 200 mg/dL Borderline High Cholesterol: 200-239 mg/dL High Cholesterol: greater than 239 mg/dL LDL Cholesterol Calculated 73 <100 mg/dL Desirable LDL: less than 100 mg/dL Near Optimal/Above Optimal LDL: 110-129 mg/dL Borderline High LDL: 130-159 mg/dL High LDL: 160-189 mg/dL Very High LDL: greater than or equal to 190 mg/dL HDL Cholesterol 33 >40 mg/dL Desirable HDL: greater than 40 mg/dL Note: This HDL assay may give artificially low results in patients with liver disease. Microalbumin, Random Reviewed date:07/09/2025 04:09:55 PM Interpretation: Performing Lab:[facility], [address] [place] [phone] Notes/Report: Creatinine Urine 105.99 Microalbumin Urine 16.0 Microalbum/Creatinine Ratio Ur 15.0 <30 ug/mg cr Albumin/Creatinine Ratio Reference Ranges: Normal: < 30 ug/mg creatinine Microalbuminuria: 30 - 300 ug/mg creatinine Clinical Albuminuria: > 300 ug/mg creatinine Hemoglobin A1c Reviewed date:07/09/2025 04:09:54 PM Interpretation: Performing Lab:[facility], [address] [place] [phone] Notes/Report: Hemoglobin A1c % 8.1 <6.0 % Hemoglobin A1C Reference Range Adults: 4.8 - 6.0 % Non diabetic: < 6.0 % Goal: < 7.0 % Additional Action Suggested: > 8.0 % Note: Hemoglobin A1c results are invalid for patients with abnormal amounts of HbF. Blood transfusions may impact the HbA1c concentration in the patient sample. Estimated Average Glucose 186 eAG = Estimated average glucose which is %A1C expressed as average glucose, using the formula of the G5Y-Onpavtw Average Glucose study (ADAG), Diabetes Care, Vol.31,#8, 2007 Diabetic Eye Exam Reviewed date:08/14/2025 01:30:52 PM Interpretation:undefined Performing Lab: Notes/Report: undefined Reason For Referral Reason Evaluate and Treat Right Knee Pain Diagnosis 1 Right knee pain (M25 .561) Referral Organization Nabil Benitez III, MD Referring Provider First Name Nabil Referring Provider Last Name Eli Referring Provider Speciality Internal M edicine Referred Provider [facility] Referred Provider Specialty Orthopedic S urgery General Notes Kristy Sepulveda 04/17/2025 09:23:37 AM > referral and progress note faxed. Patient was made aware, Kristy Sepulveda 04/26/2025 03:14:33 PM > patient was called and left a message questioning if the appointment was made., Kristy Sepulveda 05/09/2025 11:28:12 AM > patient stated he has been seen for this issue already at [facility]. Appointment was 05/03/25, they are recommending surgery Referral Priority Routine Referral Appointment Date 05/03/2025 Reason nasal polyps with no se bleeds Diagnosis 1 Nasal polyps (J33.9) Referral Organization Nabil Benitez III, MD Referring Provider First Name Nabil Referring Provider Last Name Eli Referring Provider Speciality Internal M edicine Referred Provider [facility], [facility] Referred Provider Specialty Otolaryngolo General Notes Vahid Armindarosalinda SALAZAR 04/18 11:46:42 AM > ref[facility]demo/progress [facility] made aware of this and told to call the office to set up appt, Vahid Armindarosalinda SALAZAR 05/02/2025 02:58:45 PM > Called ENT they made patient appt for 01/18/2026 at 2:30pm arrival with 3:00pm appointment with Dr Fara Rosen [address] [place] [address] information called and mailed to patient Referral Priority Routine Referral Appointment Date 01/18/2026 Medications Medication SIG (Take, Route, Frequency, Duration) Notes Start Date End Date Status Fluticasone-Salmeterol 45-21 MCG/ACT USE 2 INHALATIONS TWICE A DAY Inhalation Twice a day Active Fish Oil 1200 MG 1 capsule Orally Onc e a day Active CoQ10 200 MG 1 capsule with a amadeo l Orally Once a day Active Aspirin 81 81 MG 1 tablet Orally Once a day Active hydroCHLOROthiazide 25 mg TAKE 1 TABLET DAILY. orally daily Active Sure Comfort Pen Oxford 32G X 4 MM USE WITH INSULIN ONCE DAILY Active Jardiance 25 mg TAKE 1 TABLET DAILY Active FreeStyle Lite Test - In Vitro Active Lisinopril 40 mg 1 tablet orally once a day Active Atorvastatin Calcium 80 mg 1 Tablet Oral Once a day Active Fiber 500 MG as directed Orally Active Metoprolol Succinate ER 25 mg TAKE 1 TAB LET TWICE A DAY Active Lantus SoloStar 100 UNIT/ML INJECT 36 UN ITS UNDER THE SKIN DAILY Active Trulicity 3 MG/0.5ML INJECT 1 PEN WEEKLY Active Multi Vitamin - 1 tablet Orally Once a day Active Immunizations Vaccine Route Administration Date Status [...] Problem Status W/U Status Risk Notes Problem 0211193 Former smoker (Z87.891) Active confirmed He is highly motivated not to smoke. We created a plan to prevent relapse in times of stress or illness. Problem DM - Diabetes mellitus (61725351) DM (diabetes mellitus) (E11.9) Active confirmed We are going to try to reduce a hemoglobin A1c of 8.1. However, he may decide not to have the surgery after all. He will continue on current medication. He has gained 6 pounds and we discussed a plan of aggressive weight loss. Problem 522296270 Overweight (E66.3) Active confirmed His body mass index is 29. I recommended aggressive weight loss. He has gained 6 pounds. Problem 954023465 Mixed hyperlipidemia (E78.2) Active confirmed His lipids are currently stable and no change in his regimen was needed. I recommended aggressive weight loss. Problem COPD - Chronic obstructive pulmonary disease (41362670) Chronic obstructive pulmonary disease, unspecified COPD type (J44.9) Active confirmed He is not smoking. He is breathing room air comfortably. He is only short of breath with prolonged exertion. He does not have a productive cough at this time. No change in his regimen was made. Problem 92907715 Essential hypertension (I10) Active confirmed His blood pressure is currently stable and in his target range. I recommended weight loss and sodium restriction but made no change in his medications. Problem 846494659 Primary osteoarthritis of both knees (M17.0) Active confirmed His pain has improved in the right knee. He is reconsidering surgery at this time but has not made a decision. Problem [id number] Coronary artery disease involving [place] coronary artery of [place] heart without angina pectoris (I25.10) Active confirmed His coronary artery disease is stable. His pain up-to-date with cardiology. No change in his regimen as needed today. Problem Benign prostatic hypertrophy without outflow obstruction (271542952) Benign prostatic hyperplasia, unspecified whether lower urinary tract symptoms present (N40.0) Active confirmed He has been rising from sleep once or twice a night. We have discussed lifestyle modifications he could make to reduce nocturia. 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 We are going to try to aggressively lose weight and consume a healthy,, reduced calorie, low cholesterol diabetic diet. Problem 689959418 Adenomatous polyp (D36.9) Active confirmed I have recommended a colonoscopy every 5 years. Old records have been requested. 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 Vital Signs Heart Rate 74 /min 09/17/2025 Temperature 97.3 degrees Fahrenheit 09/17/2025 Respiratory Rate 16 /min 08/03/2025 Oximetry 94 % 08/03/2025 Blood pressure diastolic 74 mm Hg 09/17/2025 Height 72 in 09/17/2025 Blood pressure systolic 120 mm Hg 09/17/2025 Weight 215 lbs 09/17/2025 BMI 29.16 kg/m2 09/17/2025 Encounters Encounter Location Date Provider Diagnosis Nabil Benitez III, MD [address] [place] [address] [address] [place] [phone] 04/10/2025 Nabil Benitez Benign prostatic hyperplasia, unspecified whether lower urinary tract symptoms present N40.0 ; Chronic obstructive pulmonary disease, unspecified COPD type J44.9 ; Mixed hyperlipidemia E78.2 ; Type 2 diabetes mellitus with complication, unspecified whether ocean transportation intermediary insulin use E11.8 ; Primary osteoarthritis of both knees M17.0 ; Coronary artery disease involving [place] coronary artery of [place] heart without angina pectoris I25.10 ; Former smoker Z87.891 and Essential hypertension I10 Nabil Benitez III, MD [address] [place] [address] [place] [phone] 07/11/2025 Nabil Benitez Chronic obstructive pulmonary disease, unspecified COPD type J44.9 ; Benign prostatic hyperplasia, unspecified whether lower urinary tract symptoms present N40.0 ; Essential hypertension I10 ; Former smoker Z87.891 ; Coronary artery disease involving [place] coronary artery of [place] heart without angina pectoris I25.10 ; Type 2 diabetes mellitus with complication, unspecified whether alf insulin use E11.8 ; Primary osteoarthritis of both knees M17.0 and Overweight E66.3 Nabil Benitez III, MD [address] [place] [address] [place] [phone] 08/03/2025 Nabil Benitez Former smoker Z87.89 1 ; Chronic obstructive pulmonary disease, unspecified COPD type J44.9 ; Benign prostatic hyperplasia, unspecified whether lower urinary tract symptoms present N40.0 ; Essential hypertension I10 ; Coronary artery disease involving [place] coronary artery of [place] heart without angina pectoris I25.10 ; Primary osteoarthritis of both knees M17.0 ; Overweight E66.3 ; Mixed hyperlipidemia E78.2 and Type 2 diabetes mellitus with complication, unspecified whether alf insulin use E11.8 Nabil Benitez III, MD [address] [place] [address] [place] [phone] 08/20/2025 Nabil Benitez Type 2 diabetes shilo itus with complication, unspecified whether ocean transportation intermediary insulin use E11.8 ; Former smoker Z87.891 ; Overweight E66.3 ; Benign prostatic hyperplasia, unspecified whether lower urinary tract symptoms present N40.0 ; Chronic obstructive pulmonary disease, unspecified COPD type J44.9 ; Primary osteoarthritis of both knees M17.0 ; Coronary artery disease involving [place] coronary artery of [place] heart without angina pectoris I25.10 and Essential hypertension I10 Nabil Benitez III, MD [address] [place] [address] [place] [phone] 09/17/2025 Nabil Benitez DM (diabetes mellitu s) E11.9 ; Benign prostatic hyperplasia, unspecified whether lower urinary tract symptoms present N40.0 ; Mixed hyperlipidemia E78.2 ; Overweight E66.3 ; Type 2 diabetes mellitus with complication, unspecified whether ocean transportation intermediary insulin use E11.8 ; Chronic obstructive pulmonary disease, unspecified COPD type J44.9 ; Primary osteoarthritis of both knees M17.0 and Coronary artery disease involving [place] coronary artery of [place] heart without angina pectoris I25.10 Nabil Benitez III, MD [address] [place] [address] [place] [address] 04/17/2025 Nabil Benitez Assessments Encounter Date Diagnosis (ICD Code) Assessment Notes Treat ment Notes Treatment Clinical Notes 04/10/2025 Chronic obstructive pulmonary disease, unspecified COPD type (ICD-10 - J44.9) He is not smoking. He is breathing room air comfortably. He is only short of breath with prolonged exertion. He does not have a productive cough at this time. No change in his regimen was made. 04/10/2025 Benign prostatic hyperplasia, unspecified whether lower urinary tract symptoms present (ICD-10 - N40.0) He has been rising from sleep once a night to urinate. We have discussed lifestyle modifications he could make to reduce nocturia. He denies any hematuria or dysuria. 07/11/2025 Chronic obstructive pulmonary disease, unspecified COPD [...] He denies any hematuria or dysuria. 08/03/2025 Former smoker (ICD-1 0 - Z87.891) [...] change in his regimen was made. 08/20/2025 Former smoker (ICD-1 0 - Z87.891) He is highly motivated not to smoke. We created a plan to prevent relapse in times of stress or illness. 08/20/2025 Type 2 diabetes mellitus with complication, unspecified whether alf insulin use (ICD-10 - E11.8) The hemoglobin is 8.1. An aggressive approach to glycemic control is being undertaken. 09/17/2025 DM (diabetes mellitus) (ICD-10 - E11.9) [...] modifications he could make to reduce nocturia. 04/10/2025 Mixed hyperlipidemia (ICD-10 - E78.2) His total cholesterol is 126 and his lipids are stable. He is compliant with his regimen. No changes were necessary today. 07/11/2025 Essential hypertension (ICD-10 - I10) His blood pressure is currently stable and in his target range. I recommended weight loss and sodium restriction but made no change in his medications. 08/03/2025 Benign prostatic hyperplasia, unspecified whether lower urinary tract symptoms present (ICD-10 - N40.0) He has been rising from sleep once a night to urinate. We have discussed lifestyle modifications he could make to reduce nocturia. He denies any hematuria or dysuria. 08/20/2025 Overweight (ICD-10 - E66.3) He remains in the overweight range but has lost 3 pounds. We reviewed his weight loss strategy. We made a plan to lose weight at a rate of one half of a pound per week. 09/17/2025 Mixed hyperlipidemia (ICD-10 - E78.2) His lipids are currently stable and no change in his regimen was needed. I recommended aggressive weight loss. 04/10/2025 Type 2 diabetes mellitus with complication, unspecified whether alf insulin use (ICD-10 - E11.8) His fasting glucose was 155 with a hemoglobin A1c of 7.8. We are going to utilize weight reduction and a healthy diet low in concentrated sweets combined with regular physical activity to reduce this down to 7.0. He will continue on current medications. 07/11/2025 Former smoker (ICD-1 0 - Z87.891) He is highly motivated not to smoke. We created a plan to prevent relapse in times of stress or illness. 08/03/2025 Essential hypertension (ICD-10 - I10) His blood pressure is currently stable and in his target range. I recommended weight loss and sodium restriction but made no change in his medications. 08/20/2025 Benign prostatic hyperplasia, unspecified whether lower urinary tract symptoms present (ICD-10 - N40.0) He has been rising from sleep once a night to urinate. We have discussed lifestyle modifications he could make to reduce nocturia. He denies any hematuria or dysuria. 09/17/2025 Overweight (ICD-10 - E66.3) His body mass index is 29. I recommended aggressive weight loss. He has gained 6 pounds. 04/10/2025 Primary osteoarthritis of both knees (ICD-10 - M17.0) History knee pain has improved. His myelin at the end of the day. He is conducting all of the activities of daily life without impairment. 07/11/2025 Coronary artery disease involving [place] coronary artery of [place] heart without angina pectoris (ICD-10 - I25.10) His coronary artery disease is stable. His pain up-to-date with cardiology. No change in his regimen as needed today. 08/03/2025 Coronary artery disease involving [place] coronary artery of [place] heart without angina pectoris (ICD-10 - I25.10) His coronary artery disease is stable. His pain up-to-date with cardiology. No change in his regimen as needed today. 08/20/2025 Chronic obstructive pulmonary disease, unspecified COPD type (ICD-10 - J44.9) He is not smoking. He is breathing room air comfortably. He is only short of breath with prolonged exertion. He does not have a productive cough at this time. No change in his regimen was made. 09/17/2025 Type 2 diabetes mellitus with complication, unspecified whether alf insulin use (ICD-10 - E11.8) He was continued on current medication. We are going to try to aggressively lose weight and consume a healthy,, reduced calorie, low cholesterol diabetic diet. 04/10/2025 Coronary artery disease involving [place] coronary artery of [place] heart without angina pectoris (ICD-10 - I25.10) His coronary artery disease is stable. His pain up-to-date with cardiology. No change in his regimen as needed today. 07/11/2025 Type 2 diabetes mellitus with complication, unspecified whether ocean transportation intermediary insulin use (ICD-10 - E11.8) His fasting [...] will be a major factor in this. 08/03/2025 Primary osteoarthritis of both knees (ICD-10 - M17.0) History knee pain has improved. His myelin at the end of the day. He is conducting all of the activities of daily life without impairment. 08/20/2025 Primary osteoarthritis of both knees (ICD-10 - M17.0) History knee pain has improved. His myelin at the end of the day. He is conducting all of the activities of daily life without impairment. 09/17/2025 Chronic obstructive pulmonary disease, unspecified COPD type (ICD-10 - J44.9) He is not smoking. He is breathing room air comfortably. He is only short of breath with prolonged exertion. He does not have a productive cough at this time. No change in his regimen was made. 04/10/2025 Former smoker (ICD-1 0 - Z87.891) He is highly motivated not to smoke. We created a plan to prevent relapse in times of stress or illness. 07/11/2025 Primary osteoarthritis of both knees (ICD-10 [...] half of a pound per week. 08/20/2025 Coronary artery disease involving [place] coronary artery of [place] heart without angina pectoris (ICD-10 - I25.10) His coronary artery disease is stable. His pain up-to-date with cardiology. No change in his regimen as needed today. 09/17/2025 Primary osteoarthritis of both knees (ICD-10 - M17.0) His pain has improved in the right knee. He is reconsidering surgery at this time but has not made a decision. 04/10/2025 Essential hypertension (ICD-10 - I10) His blood pressure is currently stable and in his target range at 109/77.. I recommended weight loss and sodium restriction but made no change in his medications. 07/11/2025 Overweight (ICD-10 - E66.3) He remains [...] his regimen. No changes were necessary today. 08/20/2025 Essential hypertension (ICD-10 - I10) His blood pressure is currently stable and in his target range. I recommended weight loss and sodium restriction but made no change in his medications. 09/17/2025 Coronary artery disease involving [place] coronary artery of [place] heart without angina pectoris (ICD-10 - I25.10) His coronary artery disease is stable. His pain up-to-date with cardiology. No change in his regimen as needed today. 08/03/2025 Type 2 diabetes mellitus with complication, unspecified whether ocean transportation intermediary insulin use (ICD-10 - E11.8) His fasting [...] was increased to 43. Plan Of Treatment Pending Test Test Name Order Date PROFILE, FASTING (COMPREHENSIVE METABOLI C) 09/12/2021 PROFILE, FASTING (COMPREHENSIVE METABOLI C) 06/21/2020 PROFILE, FASTING (COMPREHENSIVE METABOLI C) 02/16/2020 PROFILE, FASTING (COMPREHENSIVE METABOLI C) 01/14/2021 PROFILE, FASTING (COMPREHENSIVE METABOLI C) 08/18/2019 PROFILE, FASTING (COMPREHENSIVE METABOLI C) 11/16/2018 PROFILE, FASTING (COMPREHENSIVE METABOLI C) 01/11/2024 PROFILE, FASTING (COMPREHENSIVE METABOLI C) 08/15/2018 PROFILE, FASTING (COMPREHENSIVE METABOLI C) 09/08/2023 PROFILE, FASTING (COMPREHENSIVE METABOLI C) 04/07/2024 PROFILE, FASTING (COMPREHENSIVE METABOLI C) 10/31/2024 PROFILE, FASTING (COMPREHENSIVE METABOLI C) 10/26/2022 PROFILE, FASTING (COMPREHENSIVE METABOLI C) 09/17/2025 PROFILE, FASTING (COMPREHENSIVE METABOLI C) 02/27/2022 PROFILE, FASTING (COMPREHENSIVE METABOLI C) 04/10/2025 PROFILE, FASTING (COMPREHENSIVE METABOLI C) 04/02/2023 PROFILE, FASTING (COMPREHENSIVE METABOLI C) 09/20/2020 PROFILE, [...] PANEL 06/21/2020 LIPID PANEL 02/16/2020 LIPID PANEL 01/14/2021 LIPID PANEL 08/18/2019 LIPID PANEL 11/16/2018 LIPID PANEL 08/15/2018 LIPID PANEL 09/20/2020 PSA, TOTAL 08/15/2018 PSA, TOTAL 05/14/2021 PSA, TOTAL 02/27/2022 PSA, TOTAL 01/11/2024 PSA, TOTAL 02/16/2020 PSA, TOTAL 08/18/2019 PSA, TOTAL 10/31/2024 PSA, TOTAL 10/26/2022 PSA, TOTAL 09/17/2025 MICROALBUMIN, RANDOM 12/16/2021 MICROALBUMIN, RANDOM 02/27/2022 MICROALBUMIN, RANDOM 08/18/2019 MICROALBUMIN, RANDOM 10/31/2024 MICROALBUMIN, RANDOM 11/16/2018 CBC w DIFF 09/17/2025 CBC w DIFF 08/18/2019 CBC w DIFF 09/20/2020 CBC w DIFF 10/31/2024 CBC w DIFF 11/16/2018 CBC w DIFF 09/12/2021 CBC w DIFF 08/15/2018 CBC w DIFF 05/14/2021 CBC w DIFF 04/02/2023 CBC w DIFF 12/16/2021 CBC w DIFF 06/22/2022 CBC w DIFF 02/27/2022 CBC w DIFF 06/21/2020 CBC w DIFF 01/14/2021 CBC w DIFF 02/16/2020 CBC w DIFF 04/10/2025 CBC w DIFF 10/26/2022 CBC WITH AUTO DIFF 09/08/2023 CBC WITH AUTO DIFF 04/07/2024 CBC WITH AUTO DIFF 01/11/2024 Lipid Panel 04/10/2025 Lipid Panel 10/26/2022 Lipid Panel 09/17/2025 Lipid Panel 10/31/2024 Lipid Panel 09/12/2021 Lipid Panel 05/14/2021 Lipid Panel 12/16/2021 Lipid Panel 02/27/2022 Lipid Panel 09/08/2023 Lipid Panel 04/07/2024 Lipid Panel 01/11/2024 Microalbumin, Random 09/08/2023 Microalbumin, Random 01/11/2024 Microalbumin, Random 04/07/2024 Microalbumin, Random 04/10/2025 Microalbumin, Random 10/26/2022 Microalbumin, Random 09/17/2025 Microalbumin, Random 09/12/2021 Microalbumin, Random 05/14/2021 Hemoglobin A1c 09/08/2023 Hemoglobin A1c 01/11/2024 Hemoglobin A1c 04/07/2024 Hemoglobin A1c 04/10/2025 Hemoglobin A1c 10/31/2024 Hemoglobin A1c 10/26/2022 Hemoglobin A1c 09/17/2025 Hemoglobin A1c 05/14/2021 Next Appt Details Provider Name:Nabil Benitez , 11/20/2025 10:45:00 AM, [address] [facility] [address], [place], [address], Provider Name:Nabil Benitez , 04/12/2026 03:00:00 PM, [address] [facility] [address], [place], [address], Insurance Providers Payer Name Payer Address Payer Phone Subscriber Number Group Number Insured Name Patient Relationship to Insured Coverage Start Date Coverage End Date MEDICARE NGS [address] [place] [phone] [id number] Jose Armando Foster Self - patient is the insured /UBALDO SULLIVAN [address] [place] [phone] [id number] Jose Armando Foster Self - patient is [...] tubular ad enoma 11/2018 colonoscopy, tubular adenomas 2010 vasectomy 05/1983
[2025-11-12 13:13] LABS: MANUAL DIFF FLAG NO
[2025-11-12 13:17] LABS: Hematocrit 49.4 % (42.0-52.0); Hemoglobin 16.2 g/dl (14.0-18.0); Imm Gran Abs Auto 0.02 X10*3/uL (0.00-0.03); Imm Gran Pct Auto 0.2 % (0.0-0.4); Lymphocytes Absolute Auto 2.1 X10*3/uL (1.2-4.9); Mean Corpuscular HGB Conc 32.8 g/dl (31.0-36.0); Mean Corpuscular Hemoglobin 29.7 pg (27.0-33.0); Mean Corpuscular Volume 90.5 fL (80.0-98.0); NRBC Pct Auto 0.0 /100WBC (0.0-0.2); Platelet Count 142 X10*3/uL (160-400); Red Blood Count 5.46 X10*6/uL (4.60-5.80); White Blood Count 8.2 X10*3/uL (4.8-10.8)
[2025-11-12 13:18] LABS: NRBC Abs Auto 0.000 X10*3/uL (0.0-0.012)
[2025-11-12 13:51] LABS: Microalbum/Creatinine Ratio Ur 12.1 ug/mg cr (<30)
[2025-11-12 13:54] LABS: Prostate Specific Antigen 3.57 ng/mL (<0.05-4.0)
[2025-11-12 14:02] LABS: Albumin Level 4.5 g/dL (3.5-5.0); Alkaline Phosphatase 83 U/L (39-117); Anion Gap 12 (12-20); Aspartate Amino Transferase 46 U/L (5-37); Blood Urea Nitrogen 21 mg/dL (9-16); Calcium 9.8 mg/dL (8.4-10.2); Carbon Dioxide 27 mmol/L (22-29); Chloride 105 mmol/L (96-108); Cholesterol 119 mg/dL (<200); Estimated Glomerular Filt Rate > 60; HDL Cholesterol 34 mg/dL (>40); Potassium 4.1 mmol/L (3.3-5.1); Sodium 140 mmol/L (135-145); Total Protein 6.9 g/dL (6.5-8.0); Triglycerides 123 mg/dL (<150)
[2025-11-12 14:19] LABS: Alanine Aminotransferase 43 U/L (0-40)
== END 2025-11-12 09:41 | disposition home or self-care (01) ==
LOC: HO.10HDL 09:40
PROVIDERS: Visit Provider Internal Medicine Medical Oncology
DX: E78.2 Mixed hyperlipidemia (principal); N40.0 Benign prostatic hyperplasia without lower urinary tract symptoms; E66.3 Overweight; E11.8 Type 2 diabetes mellitus with unspecified complications; Z12.5 Encounter for screening for malignant neoplasm of prostate
CPT/HCPCS: 36415; 80053; 80061; 82043; 82570; 83036; 84153; 85025